=== PATIENT | female | born 1950 | race Caucasian/White ===

== ENCOUNTER → 2017-09-03 15:21 | Outpatient (CLI) | payer MEDICARE, OTHER, MEDICAID, SELFPAY | PROVIDERS: Family Provider Family Medicine; PCP Specialist; Visit Provider Internal Medicine | DX: K94.23 Gastrostomy malfunction (principal) | CPT/HCPCS: 99213 ==

== ENCOUNTER → 2017-09-22 14:41 | Outpatient (CLI) | payer MEDICARE, OTHER, MEDICAID, SELFPAY ==
--- NOTE | 2017-09-22 | DI.RAD.S_ITS ---
PROCEDURE: XR CHEST 2V INDICATIONS: CRACKLES LLL ON EXAM TECHNIQUE: 2 views of the chest were acquired. [facility]/2016, 12:19[facility]ST [facility], 06/20/2015, 12:59. FINDINGS: Surgical changes and devices: None. Lungs and pleura: No pleural effusions or pneumothorax. Lungs are clear. Mediastinum: Mediastinal contours are normal. Heart size is normal. Bones and chest wall: No suspicious bony abnormalities. Soft tissues appear unremarkable. IMPRESSION: Normal for age, source of current symptoms is not seen. Dictated by: Kaleb Gonzalez M.D. on 09/22/2017 at 15:15 Approved by: Kaleb Gonzalez M.D. on 09/22/2017 at 15:15
== END ==
PROVIDERS: Family Provider Family Medicine; PCP Specialist; Visit Provider Nurse Practitioner Family
DX: J06.9 Acute upper respiratory infection, unspecified (principal)
CPT/HCPCS: 71046

== ENCOUNTER 2017-10-25 08:47 | Emergency (ER) | payer MEDICARE, OTHER, MEDICAID, SELFPAY ==
[2017-10-25] VITALS (11 sets, daily range): BP systolic 100–156; BP diastolic 48–82; PULSE 75–98; RESP 18–30; TEMP 37.1; O2SAT 98–100
--- NOTE | 2017-10-25 09:03 | ED.ABDPAIN ---
HPI - Abdominal Pain General Chief Complaint: Abdominal Pain Stated Complaint: states need a tube change in stomach Time Seen by Provider: 10/25/17 08:56 Source: patient, family, RN notes reviewed and old records reviewed Mode of arrival: ambulatory Limitations: no limitations History of Present Illness HPI narrative: Patient is a 67-year-old female who presents with a G-tube malfunction. At this is 1 that comes out often needs replaced. They tried to deflate the balloon at home however they were not able to get very much of the water out. It is filled with sterile water. She generally does not have pain with feels that she is experiencing some discomfort as well. They have not given her any food or pills this morning. She is having some irritation around the site which she typically does not have says that started this morning. MD complaint: abdominal pain Onset (ago): hour(s) Related Data Home Medications Medication Instructions Recorded Confirmed methadone 5 mg PO SEE INSTRUCTIONS #0 ml 12/26/15 cyclobenzaprine PO TIDP PRN #0 03/13/17 imipramine HCl 50 mg PO QDAY #0 03/13/17 sennosides [senna] 8.6 mg PO #0 03/13/17 fluticasone [Flonase Allergy 2 spray INTRANASAL QDAY #0 03/16/17 Relief] methocarbamol 500 mg PO TID #0 03/16/17 Previous Rx's Medication Instructions Recorded clobetasol 0 TOPICAL BID #30 gm 12/26/15 Allergies Allergy/AdvReac Type Severity Reaction Status Date / Time amoxicillin [From Augmentin] Allergy Unknown Unverified 10/25/17 13:30 cat dander Allergy Unknown Verified 10/25/17 13:30 clavulanic acid Allergy Unknown Unverified 10/25/17 13:30 [From Augmentin] Review of Systems Review of Systems All systems reviewed & are unremarkable except as noted in HPI and below Constitutional Denies chills, Denies fever(s), Denies headache(s), Denies lethargy and Denies weakness ENT Ears, Nose, Mouth, and Throat: Denies headache(s) Cardiovascular Denies chest pain, Denies irregular heart rhythm, Denies lightheadedness, Denies palpitations and Denies orthopnea Respiratory Reports other (Trach) Gastrointestinal Gastrointestinal: Reports as per HPI Integumentary/Breasts Reports erythema (Around G2) Neurologic Denies headache(s) and Denies weakness Endocrine Denies palpitations PFSH Family History Father Cancer Diabetes mellitus Mother High cholesterol Sister Age: 71 High cholesterol Sister High cholesterol Mental health problem Social History Smoking Status: Never smoker Exam Initial Vital Signs Initial Vital Signs: Vital Signs Temperature 98.7 F 10/25/17 08:59 Pulse Rate 88 10/25/17 08:59 Respiratory Rate 18 10/25/17 08:59 Blood Pressure 146/59 H 10/25/17 08:59 Pulse Oximetry 100 10/25/17 08:59 Const General: cooperative and ill appearing (chronically ill) Nutritional Appearance: thin HENMT Head: normal to inspection and normocephalic Chest Chest: normal inspection of the chest Resp Effort & Inspection: normal respiratory effort Other: Trach in place Cardio Pulses: normal peripheral pulses GI Palpation: soft Auscultation: normal bowel sounds Other: G tube present, mild erythema around tube, no drainage Skin Rashes: rashes noted (see above around tube) Neuro General: alert, awake and oriented x3 Extrem General: normal to inspection Procedures Procedural Sedation Indication: other (G tube replacement) ASA Class: I (Trach present) Time of Last PO Intake: 20:15 Preparation: air sampling and monitoring applied, pulse oximeter, capnometry used and supplemental O2 applied IV Propofol dose (mg): 50 Time of Sedation (Min): 15 ED Sedation Level: Minimal Patient Tolerated Procedure: Well and No complications Complications: [place] [facility] [place] Name of Procedure: G-tube replacement Location: abdomen Time out performed: Yes Technique/Description of procedure performed: Attempt at replacing G2. His 20 mL of air and very little fluid were removed from the balloon. Unable to remove G-tube is still fell down Patient tolerated procedure: Well Course Additional Information: Unable to pulled G-tube out despite procedure sedation. at bedside. She is successful Orders Ordered: Discontinued Medications Hydromorphone HCl (Dilaudid) 0.5 mg IV NOW ONE Stop: 10/25/17 12:17 Last Admin: 10/25/17 12:45 Dose: 0.5 mg Hydromorphone HCl (Dilaudid) 1 mg IV NOW ONE Stop: 10/25/17 13:26 Last Admin: 10/25/17 13:31 Dose: 1 mg Morphine Sulfate (Morphine) 4 mg IM NOW ONE Stop: 10/25/17 09:14 Last Admin: 10/25/17 09:32 Dose: Morphine Sulfate (Morphine) 4 mg INJ NOW ONE Stop: 10/25/17 09:31 Last Admin: 10/25/17 09:15 Dose: 4 mg Propofol (Diprivan) 50 mg IV NOW ONE Stop: 10/25/17 10:14 Last Admin: 10/25/17 11:02 Dose: 50 mg Vital Signs - 8 hr 10/25/17 08:59 10/25/17 10:49 10/25/17 10:50 Temperature 98.7 F Pulse Rate 88 98 H Respiratory Rate 18 20 26 H Blood Pressure 146/59 H Blood Pressure [Right Arm] 156/69 H Pulse Oximetry 100 98 100 10/25/17 11:00 10/25/17 11:05 10/25/17 11:15 Temperature Pulse Rate 80 76 76 Respiratory Rate 26 H 28 H 25 H Blood Pressure Blood Pressure [Right Arm] 122/61 H 140/60 H 129/51 H Pulse Oximetry 100 98 100 10/25/17 11:20 10/25/17 11:28 10/25/17 11:33 Temperature Pulse Rate 78 79 83 Respiratory Rate 27 H 25 H 22 Blood Pressure Blood Pressure [Right Arm] 100/82 H 141/56 H 142/54 H Pulse Oximetry 100 100 100 10/25/17 11:50 10/25/17 14:07 Temperature Pulse Rate 80 80 Respiratory Rate 25 H 22 Blood Pressure Blood Pressure [Right Arm] 135/65 H 140/56 H Pulse Oximetry 99 100 MDM - Abdominal Pain Lab Data Point of care testing: Point of Care Testing Test Results Negative MDM Narrative Medical decision making narrative: Patient tolerated procedure well. Apparently the could not pull the tube out so he kept putting more fluid and more air in he tried to take it out but would only get a couple cc of fluid out so he continue to put more in. The balloon was intact, Dr. Felix did the procedure at bedside. I discussed all findings with the patient and the spouse, Education has been performed regarding treatment plan, diagnosis, warning signs and symptoms and all concerns have been addressed. Verbally agree with and understood all of the above. Discharge Plan Departure Patient Disposition: Home, Self-Care Clinical Impression: Problem with gastrostomy tube Discharge Date/Time: 10/25/17 14:20 Interventions: ED Discharge Assessment Last Done: 10/25/17 14:40 Instructions: DI for Feeding Tube Exchange Activity Restrictions/Additional Instructions: *You have been diagnosed with Gtube problem *What to do: Do not put any more then 10 mL in the balloon. *Continue to take medications as directed *Follow up with your primary care provider in 2-3 days *Return to ER if you should have any new, worsening or concerning symptoms Prescriptions: No Action clobetasol 0.05 % ointment Topical BID Qty: 30 RF: 2 methadone 5 MG/5 ML solution 5 mg PO SEE INSTRUCTIONS Qty: 0 RF: 0 imipramine HCl 50 MG tablet 50 mg PO QDAY Qty: 0 RF: 0 cyclobenzaprine 10 mg Tablet PO TIDP PRNQty: 0 RF: 0 sennosides [senna] 8.6 MG tablet 8.6 mg PO Qty: 0 RF: 0 fluticasone [Flonase Allergy Relief] 9.9 ML spray,suspension 2 spray Intranasal QDAY Qty: 0 RF: 0 methocarbamol 500 MG tablet 500 mg PO TID Qty: 0 RF: 0 Referrals: Imelda Ruiz MD [Primary Care Provider] -
[2017-10-25] MEDS: MORPHINE 4 MG/ML INJ INJ (09:15)
[2017-10-25] MEDS: PROPOFOL 200 MG/20 ML VIAL 50 MG IV (11:02)
--- NOTE | 2017-10-25 12:04 | RT ---
Called to the ER for a Conscious Sedation for a pt with a Trach for an issue with her Feeding Tube. Pt was suctioned before the procedure.
[2017-10-25] MEDS: HYDROMORPHONE 0.5 MG INJ IV (12:45)
[2017-10-25] MEDS: HYDROMORPHONE 0.5 MG INJ 1 MG IV (13:31)
--- NOTE | 2017-10-25 14:27 | PM.CN ---
History of Present Illness Date Patient Seen: 10/25/17 Time Patient Seen: 13:04 Chief complaint: states need a tube change in stomach Reason for consult: Malfunctioning gastrostomy tube Requesting provider: Camilla Ulloa Narrative: Aimee is an unfortunate 67-year-old lady who has a permanent gastrostomy tube. She and her are able to change the tube at home usually. Unfortunately, this time when they tried to change the tube they were not able to deflate the balloon. She presented to the emergency room because she was in significant discomfort after the attempt. Multiple attempts have been made to remove the tube but none have been successful. Multiple attempts of also been made to deflate the balloon but none of those have been successful. [facility] Family History Father Cancer Diabetes mellitus Mother High cholesterol Sister Age: 71 High cholesterol Sister High cholesterol Mental health problem Social History Smoking Status: Never smoker Meds Home Medications Medication Instructions Recorded Confirmed Type clobetasol 0 TOPICAL BID #30 gm 12/26/15 Rx methadone 5 mg PO SEE INSTRUCTIONS #0 ml 12/26/15 History cyclobenzaprine PO TIDP PRN #0 03/13/17 History imipramine HCl 50 mg PO QDAY #0 03/13/17 History sennosides [senna] 8.6 mg PO #0 03/13/17 History fluticasone [Flonase Allergy 2 spray INTRANASAL QDAY #0 03/16/17 History Relief] methocarbamol 500 mg PO TID #0 03/16/17 History Allergies Allergy/AdvReac Type Severity Reaction Status Date / Time amoxicillin [From Augmentin] Allergy Unknown Unverified 10/25/17 13:30 cat dander Allergy Unknown Verified 10/25/17 13:30 clavulanic acid Allergy Unknown Unverified 10/25/17 13:30 [From Augmentin] Review of Systems Review of Systems Denies any significant issues other than the 1 described above Exam Vital Signs (past 8 hours): - 10/25/17 08:59 10/25/17 10:49 10/25/17 10:50 Temperature 98.7 F Pulse Rate 88 98 H Respiratory Rate 18 20 26 H Blood Pressure 146/59 H Blood Pressure [Right Arm] 156/69 H Pulse Oximetry 100 98 100 10/25/17 11:00 10/25/17 11:05 10/25/17 11:15 Temperature Pulse Rate 80 76 76 Respiratory Rate 26 H 28 H 25 H Blood Pressure Blood Pressure [Right Arm] 122/61 H 140/60 H 129/51 H Pulse Oximetry 100 98 100 10/25/17 11:20 10/25/17 11:28 10/25/17 11:33 Temperature Pulse Rate 78 79 83 Respiratory Rate 27 H 25 H 22 Blood Pressure Blood Pressure [Right Arm] 100/82 H 141/56 H 142/54 H Pulse Oximetry 100 100 100 10/25/17 11:50 10/25/17 14:07 Temperature Pulse Rate 80 80 Respiratory Rate 25 H 22 Blood Pressure Blood Pressure [Right Arm] 135/65 H 140/56 H Pulse Oximetry 99 100 Oxygen Delivery Method Room Air Narrative Exam Narrative: Very thin but pleasant lady. She is obviously physically uncomfortable. She is also in some emotional distress. My examination is limited to the abdominal wall. There is a gastrostomy to with the marker approximately 1-1/2 cm at the skin surface. There is a palpable lump just underneath the skin consistent with the balloon. Very tender to palpation and generally uncomfortable. Using a syringe, I was able to aspirate 22 mL of pinkish brown fluid from the balloon port of the gastrostomy tube. Once the balloon was deflated, her pain seemed to improve significantly. I was able to remove the tube and replace it with a 20 [place] replacement G-tube without difficulty. The balloon was inflated with 10 mL of sterile water without difficulty. Patient reports her pain has resolved but she is just generally sore at this point. Assessment & Plan Plan: Assessment/Plan Narrative: Malfunctioning PEG tube. The tube has been removed and replaced and seems to be working well. She has received pain medicine here in the emergency room so will ask her not to take her scheduled methadone for at least 1 hr. She will follow up with her usual care providers.
== END 2017-10-25 14:20 | disposition home or self-care (01) ==
PROVIDERS: Emergency Provider Emergency Medicine; Family Provider Family Medicine; PCP Specialist
DX: K94.23 Gastrostomy malfunction (principal)
CPT/HCPCS: 43760; 96374; 96375; 96376; 99152; 99284; 99285; 99291; J1170; J2270; J2704

== ENCOUNTER → 2018-01-08 12:08 | Outpatient (CLI) | payer MEDICARE, OTHER, MEDICAID, SELFPAY ==
--- NOTE | 2018-01-08 | DI.RAD.S_ITS ---
PROCEDURE: XR HAND RT MIN 3V INDICATIONS: RIGHT HAND PAIN TECHNIQUE: Right views of the hand(s) acquired. COMPARISON: None. FINDINGS: Bones: No fractures or dislocations. Carpal bones are normally aligned. No suspicious bony lesions. Scattered mild interphalangeal, first CMC and triscaphe spurring. No definite joint space narrowing. Soft tissues: No suspicious soft tissue calcifications. Numerous surgical clips project in the distal forearm IMPRESSION: Diffuse mild degenerative spurring as above Dictated by: Nick Gupta M.D. on 01/08/2018 at 14:30 Approved by: Nick Gupta M.D. on 01/08/2018 at 14:31
== END ==
PROVIDERS: Family Provider Family Medicine; PCP Family Medicine; Visit Provider Family Medicine
DX: M79.641 Pain in right hand (principal); M77.9 Enthesopathy, unspecified
CPT/HCPCS: 73130

== ENCOUNTER → 2018-09-23 16:02 | Outpatient (CLI) | payer MEDICARE, OTHER, MEDICAID, SELFPAY ==
--- NOTE | 2018-09-23 16:57 | DI.RAD.S_ITS ---
PROCEDURE: XR CHEST 2V INDICATIONS: BRONCHITIS TECHNIQUE: 2 views of the chest were acquired. COMPARISON: [facility], CR, XR CHEST 2V, 09/22/2017, 14:29. FINDINGS: Surgical changes and devices: None. Lungs and pleura: Lungs are clear, aside from bibasilar airspace opacities. No pleural effusions or pneumothorax. Mediastinum: Mediastinal contours are normal. Heart size is normal. Bones and chest wall: No suspicious bony abnormalities. Soft tissues appear unremarkable. IMPRESSION: Bibasilar atelectasis versus aspiration or pneumonia. Correlate clinically. Dictated by: Donnie Hu [facility] Interpreted: Rosanna Fountain MD on 09/23/2018 at 17:13 Approved by: Rosanna Fountain M.D. on 09/23/2018 at 17:23
== END ==
PROVIDERS: Family Provider Family Medicine; PCP Family Medicine; Visit Provider Family Medicine
DX: J42 Unspecified chronic bronchitis (principal); Z87.01 Personal history of pneumonia (recurrent)
CPT/HCPCS: 71046

== ENCOUNTER → 2018-10-01 08:53 | Outpatient (CLI) | payer MEDICARE, OTHER, MEDICAID, SELFPAY ==
--- NOTE | 2018-10-01 | DI.RAD.S_ITS ---
PROCEDURE: FL GUIDED PICC PLACEMENT INDICATIONS: Pneumonia, unspecified organism COMPARISON: None. FINDINGS: PICC was placed by the intravenous therapy team from the right side. Fluoroscopic spot film demonstrates tip of PICC in the distal SVC below the axial level of the azygos arch.. IMPRESSION: Tip of PICC lies within the distal SVC a right-sided approach. Dictated by: Kaleb Gonzalez M.D. on 10/01/2018 at 10:12 Approved by: Kaleb Gonzalez M.D. on 10/01/2018 at 10:13
[2018-10-01 10:26] LABS: Add Manual Diff / Slide Review NO; Basophils Absolute Auto 0 /uL (0-100); Basophils Percent Auto 0.6 % (0-2); Eosinophils Absolute Auto 100 /uL (0-450); Eosinophils Percent Auto 0.8 % (2-4); Hematocrit 33.9 % (36-46); Hemoglobin 11.4 g/dL (12.0-16.0); Lymphocytes Absolute Auto 500 /uL (1100-4500); Lymphocytes Percent Auto 6.8 % (25-40); Mean Corpuscular HGB Conc 33.6 % (30-36); Mean Corpuscular Hemoglobin 30.5 PG (26-34); Mean Corpuscular Volume 90.9 fL (80-100); Monocytes Absolute Auto 500 /uL (0-900); Monocytes Percent Auto 6.7 % (3-14); Neutrophils Absolute Auto 5700 /uL (1500-7000); Neutrophils Percent Auto 85.1 % (50-75); Platelet Count 379 X10^3/uL (150-400); Red Blood Cell Count 3.73 X10^6/uL (4.0-5.2); Red Cell Distribution Width 12.4 % (11.6-14.8); White Blood Cell Count 6.7 X10^3/uL (4.5-11.0)
[2018-10-01 11:01] LABS: Alanine Aminotransferase 12 IU/L (9-52); Albumin 3.7 g/dL (3.5-5.0); Albumin Globulin Ratio 1.1 (1.0-2.8); Alkaline Phosphatase 74 U/L (38-126); Aspartate Aminotransferase 16 IU/L (14-36); BUN Creatinine Ratio 42.5 (6-22); Bilirubin Total 0.4 mg/dL (0.2-1.3); Blood Urea Nitrogen 34 mg/dL (7-17); Carbon Dioxide 30 mmol/L (22-32); Chloride 99 mmol/L (98-107); Estimated Glomerular Filt Rate > 60.0 mL/min (>60); Globulin 3.5 g/dL (1.7-4.1); Glucose 74 mg/dL (80-110); HEMOLYSIS < 15 (0-50); Potassium 4.8 mmol/L (3.4-5.1); Sodium 138 mmol/L (137-145); Total Protein 7.2 g/dL (6.3-8.2)
== END ==
PROVIDERS: Family Provider Family Medicine; PCP Family Medicine; Visit Provider Family Medicine
DX: J18.9 Pneumonia, unspecified organism (principal)
CPT/HCPCS: 36415; 36573; 80053; 85025

== ENCOUNTER → 2018-10-12 10:36 | Outpatient (ROUT) | payer MEDICARE, OTHER, MEDICAID, SELFPAY ==
[2018-10-12 10:51] LABS: Add Manual Diff / Slide Review NO; Basophils Absolute Auto 0 /uL (0-100); Basophils Percent Auto 0.9 % (0-2); Eosinophils Absolute Auto 100 /uL (0-450); Hematocrit 34.8 % (36-46); Hemoglobin 11.7 g/dL (12.0-16.0); Lymphocytes Absolute Auto 600 /uL (1100-4500); Lymphocytes Percent Auto 14.1 % (25-40); Mean Corpuscular HGB Conc 33.5 % (30-36); Mean Corpuscular Hemoglobin 30.6 PG (26-34); Mean Corpuscular Volume 91.3 fL (80-100); Monocytes Absolute Auto 400 /uL (0-900); Monocytes Percent Auto 9.3 % (3-14); Neutrophils Absolute Auto 3200 /uL (1500-7000); Neutrophils Percent Auto 72.7 % (50-75); Platelet Count 315 X10^3/uL (150-400); Red Blood Cell Count 3.82 X10^6/uL (4.0-5.2); Red Cell Distribution Width 12.7 % (11.6-14.8); White Blood Cell Count 4.4 X10^3/uL (4.5-11.0)
[2018-10-12 10:56] LABS: Alanine Aminotransferase 12 IU/L (9-52); Albumin 4.2 g/dL (3.5-5.0); Albumin Globulin Ratio 1.2 (1.0-2.8); Alkaline Phosphatase 79 U/L (38-126); Aspartate Aminotransferase 18 IU/L (14-36); BUN Creatinine Ratio 47.1 (6-22); Bilirubin Total 0.4 mg/dL (0.2-1.3); Blood Urea Nitrogen 33 mg/dL (7-17); Carbon Dioxide 31 mmol/L (22-32); Chloride 103 mmol/L (98-107); Estimated Glomerular Filt Rate > 60.0 mL/min (>60); Globulin 3.5 g/dL (1.7-4.1); Glucose 79 mg/dL (80-110); HEMOLYSIS < 15 (0-50); Potassium 4.5 mmol/L (3.4-5.1); Sodium 142 mmol/L (137-145); Total Protein 7.7 g/dL (6.3-8.2)
[2018-10-12 11:02] LABS: Vancomycin Trough 16.1 ug/mL (10-20)
== END ==
PROVIDERS: Family Provider Family Medicine; PCP Family Medicine; Visit Provider Family Medicine
DX: J18.9 Pneumonia, unspecified organism (principal)
CPT/HCPCS: 80053; 80202; 85025

== ENCOUNTER 2019-01-05 00:28 | Observation (INO) | payer MEDICARE, OTHER, MEDICAID, SELFPAY ==
[2019-01-05] VITALS (10 sets, daily range): BP systolic 120–150; BP diastolic 65–79; PULSE 66–81; RESP 16–18; TEMP 36–37.3; O2SAT 96–100; BMI 20.7
--- NOTE | 2019-01-05 00:38 | DI.RAD.S_ITS ---
PROCEDURE: XR ABDOMEN 1V INDICATIONS: G tube placement TECHNIQUE: 3 views of the abdomen acquired before and after the administration of contrast through patient's percutaneous feeding tube. COMPARISON: [facility], CT, CHEST/ABDOMEN WITH CONTRAST, 12/21/2015, 10:56. [facility], CR, ABDOMEN 2 VIEW, 05/08/2015, 12:40. FINDINGS: Surgical changes and devices: A percutaneous feeding tube is demonstrated in the left upper quadrant. Bowel: Injected contrast opacifies multiple loops of small bowel in the left upper quadrant. No evidence of extraluminal contrast extravasation. There is gas and stool distention of the colon including the descending colon with multiple air-fluid levels. Soft tissues: No suspicious abdominal calcifications. Bones: No suspicious bony lesions. IMPRESSION: 1. No evidence of extraluminal contrast extravasation following injection through patient's percutaneous feeding tube. 2. Distention of the colon with multiple air-fluid levels. Findings may represent a distal colonic obstruction or an ileus. Recommend correlation clinically and further evaluation with CT if indicated. Dictated by: Hayden Lopez M.D. on 01/05/2019 at 8:00 Approved by: Hayden Lopez M.D. on 01/05/2019 at 8:07
--- NOTE | 2019-01-05 00:42 | ED.ABDPAIN ---
HPI - Abdominal Pain General Chief Complaint: Abdominal Pain Stated Complaint: NEEDS GTUBE REPLACED Time Seen by Provider: 01/05/19 00:34 Source: patient, family and old records reviewed Mode of arrival: ambulatory Limitations: no limitations History of Present Illness HPI narrative: Patient is a 68-year-old female who presents with abdominal pain. She had a G-tube replaced today. She has had 1 for many years. is quite familiar with it. thinks it might be in the wrong spot he has put out over a L in in you can actually see swelling in her abdomen. She is in severe pain unable to draw back the G-tube. MD complaint: abdominal pain Related Data Home Medications Medication Instructions Recorded Confirmed methadone 5 mg PO SEE INSTRUCTIONS #0 ml 12/26/15 01/04/19 cyclobenzaprine PO TIDP PRN #0 03/13/17 01/04/19 imipramine HCl 50 mg PO QDAY #0 03/13/17 01/04/19 sennosides [senna] 8.6 mg PO #0 03/13/17 01/04/19 fluticasone propionate [Flonase 2 spray INTRANASAL QDAY #0 03/16/17 01/04/19 Allergy Relief] methocarbamol 500 mg PO TID #0 03/16/17 01/04/19 albuterol sulfate 2.5 mg/3 mL 2.5 mg INHALATION Q4-6H PRN 01/06/18 01/04/19 (0.083 %) solution for nebulization ascorbic acid (vitamin C) 1,000 mg 1 gram FEEDING TUBE DAILY tab 01/06/18 01/04/19 tablet clonazepam 0.5 mg disintegrating 0.5 mg FEEDING TUBE TID 01/06/18 01/04/19 tablet cyclobenzaprine 5 mg tablet 5 mg FEEDING TUBE TID PRN 01/06/18 01/04/19 dextromethorphan-guaifenesin 10 30 ml PO ml 01/06/18 01/04/19 mg-200 mg/15 mL oral liquid gabapentin 250 mg/5 mL oral 1,500 mg FEEDING TUBE BID ml 01/06/18 01/04/19 solution ibuprofen 100 mg/5 mL oral 400 mg FEEDING TUBE Q6-8H PRN ml 01/06/18 01/04/19 suspension levothyroxine 200 mcg tablet 225 mcg FEEDING TUBE DAILY tab 01/06/18 01/04/19 meclizine 25 mg tablet 25 mg FEEDING TUBE Q6H PRN tab 01/06/18 01/04/19 methadone 10 mg/mL oral concentrate 6 mg FEEDING TUBE Q12H ml 01/06/18 01/04/19 ondansetron 4 mg disintegrating 4 mg FEEDING TUBE Q6H PRN tab 01/06/18 01/04/19 tablet ranitidine HCl 15 mg/mL oral syrup 150 mg FEEDING TUBE DAILY 01/06/18 01/04/19 Previous Rx's Medication Instructions Recorded clobetasol 0 TOPICAL BID #30 gm 12/26/15 Allergies Allergy/AdvReac Type Severity Reaction Status Date / Time amoxicillin [From Augmentin] Allergy Unknown Unverified 01/04/19 16:25 cat dander Allergy Unknown Verified 01/04/19 16:25 clavulanic acid Allergy Unknown Unverified 01/04/19 16:25 [From Augmentin] Review of Systems Review of Systems Narrative: GENERAL: Denies chills, fatigue, malaise, fever, sweats, travel HEENT: Denies sinus pain, ear pain, sore throat, difficulty swallowing, neck pain RESPIRATORY: Denies dyspnea, cough, wheezing, hemoptysis, sputum. CARDIOVASCULAR: Denies chest pain, palpitations, orthopnea, edema GASTROINTESTINAL: Denies nausea, vomiting, abdominal pain, diarrhea, constipation, melena. : Denies dysuria, frequency, incontinence, hematuria, urinary retention, flank pain. MUSCULOSKELETAL: Denies weakness, joint pain, or bony pain SKIN: No rash, no erythema, no pruritus NEUROLOGIC: Denies weakness, dizziness, headache, numbness, change in speech, confusion PSYCHIATRIC: No concerning psychosocial issues. 12 point review of systems is negative except for those stated above and HPI [facility] Medical History (Updated 01/05/19 @ 02:30 by Camilla Ulloa DO) Hypothyroid (Acute) Family History Father Cancer Diabetes mellitus Mother High cholesterol Sister Age: 73 High cholesterol Sister High cholesterol Mental health problem Social History household members: spouse Smoking Status: Never smoker Family History Father Cancer Diabetes mellitus Mother High cholesterol Sister Age: 73 High cholesterol Sister High cholesterol Mental health problem Social History household members: spouse Smoking Status: Never smoker Exam Initial Vital Signs Initial Vital Signs: Vital Signs Temperature 97.6 F 01/05/19 00:37 Pulse Rate 72 01/05/19 00:37 Respiratory Rate 18 01/05/19 00:37 Blood Pressure 150/71 H 01/05/19 00:37 Pulse Oximetry 100 01/05/19 00:37 GENERAL: Elderly female appears in discomfort HEENT: Head atraumatic,EOMI, pupils reactive, face symmetric, trach noted CARDIOVASCULAR: Regular rate and rhythm without murmurs, rubs or gallops. RESPIRATORY: Breath sounds equal bilaterally, no wheezes rales or rhonchi. ABDOMEN: Soft, G-tube noted swelling noted subcutaneously tender in the area no surrounding erythema EXTREMITIES: Normal range of motion, no clubbing or edema. Neurovascularly intact NEUROLOGICAL: Alert and oriented x4.Normal gait and speech. Cranial nerves II through XII grossly intact. SKIN: Warm, dry, no laceration, no petechiae, no rashes or lesions. Course Orders Ordered: ED Orders 01/05/19 00:38 XR abdomen 1V Stat 01/05/19 00:40 Basic Metabolic Panel Stat Complete Blood Count AUTO DIFF Stat Sodium Chloride (Normal Saline 0.9%) 1,000 mls @ 125 mls/hr IV CONT CELY Morphine Sulfate (Morphine) 2 mg IV Q4HR PRN PRN Reason: Pain, Moderate (4-6) Ondansetron HCl (Zofran) 4 mg IV Q4HR PRN PRN Reason: Nausea And Vomiting Discontinued Medications Morphine Sulfate (Morphine) 2 mg IV NOW ONE Stop: 01/05/19 00:39 Last Admin: 01/05/19 00:45 Dose: 2 mg Documented by: SHADIA Vital Signs Vital signs: Vital Signs - 8 hr 01/05/19 00:37 01/05/19 01:15 01/05/19 01:30 Temperature 97.6 F Pulse Rate 72 66 67 Respiratory Rate 18 Blood Pressure 150/71 H Blood Pressure [Right Arm] 143/73 H 120/65 Pulse Oximetry 100 99 99 MDM - Abdominal Pain Lab Data Attestation: I reviewed the patient's lab results. Result diagrams: 01/05/19 00:40 01/05/19 00:40 Labs: Lab Results 01/05/19 01/05/19 Range/Units 00:40 00:40 WBC 7.8 (4.5-11.0) X10^3/uL RBC 4.30 (4.0-5.2) X10^6/uL Hgb 13.4 (12.0-16.0) g/dL Hct 40.1 (36-46) % MCV 93.1 (80-100) fL MCH 31.1 (26-34) PG MCHC 33.5 (30-36) % RDW 14.2 (11.6-14.8) % Plt Count 219 (150-400) X10^3/uL Neut % (Auto) 79.7 H (50-75) % Lymph % (Auto) 9.5 L (25-40) % [place] % (Auto) 4.7 (3-14) % Eos % (Auto) 5.0 H (2-4) % Baso % (Auto) 1.1 (0-2) % Neut # (Auto) 6200 (8635-7929) /uL Lymph # (Auto) 700 L (6904-6065) /uL [place] # (Auto) 400 (0-900) /uL Eos # (Auto) 400 (0-450) /uL Baso # (Auto) 100 (0-100) /uL Sodium 137 (137-145) mmol/L Potassium 4.1 (3.4-5.1) mmol/L Chloride 95 L (98-107) mmol/L Carbon Dioxide 33 H (22-32) mmol/L BUN 37 H (7-17) mg/dL Creatinine 0.80 (0.52-1.04) mg/dL Estimated GFR > 60.0 (>60) mL/min BUN/Creatinine Ratio 46.3 H (6-22) Glucose 88 (80-110) mg/dL Calcium 8.1 L (8.4-10.2) mg/dL Imaging Data Abdominal x-ray: Attestation: I personally reviewed and interpreted this imaging study as follows: My impression: gastrograffin is noted in the intestine although ? 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 MDM Narrative Medical decision making narrative: I have discussed case with Dr. Camacho, on-call surgeon, at this time recommends placing an observation will evaluate in a few hours. Recommend keeping NPO. Based patient's symptoms something does appear to be wrong with the G-tube. Surgery aware and will evaluate in a few hours. Patient is much more comfortable after morphine. Discharge Plan Departure Patient Disposition: Admitted as Observation Clinical Impression: PEG tube malfunction Discharge Date/Time: 01/05/19 01:50 Admit Date/Time: 01/05/19 01:30 Admit Provider: Prosper Camacho
[2019-01-05] MEDS: MORPHINE 2 MG/ML INJ IV ×3 (00:45→14:25)
[2019-01-05 01:00] LABS: Add Manual Diff / Slide Review NO; Basophils Absolute Auto 100 /uL (0-100); Basophils Percent Auto 1.1 % (0-2); Eosinophils Absolute Auto 400 /uL (0-450); Hematocrit 40.1 % (36-46); Hemoglobin 13.4 g/dL (12.0-16.0); Lymphocytes Absolute Auto 700 /uL (1100-4500); Lymphocytes Percent Auto 9.5 % (25-40); Mean Corpuscular HGB Conc 33.5 % (30-36); Mean Corpuscular Hemoglobin 31.1 PG (26-34); Mean Corpuscular Volume 93.1 fL (80-100); Monocytes Absolute Auto 400 /uL (0-900); Monocytes Percent Auto 4.7 % (3-14); Neutrophils Absolute Auto 6200 /uL (1500-7000); Neutrophils Percent Auto 79.7 % (50-75); Platelet Count 219 X10^3/uL (150-400); Red Cell Distribution Width 14.2 % (11.6-14.8); White Blood Cell Count 7.8 X10^3/uL (4.5-11.0)
[2019-01-05 01:11] LABS: BUN Creatinine Ratio 46.3 (6-22); Blood Urea Nitrogen 37 mg/dL (7-17); Calcium 8.1 mg/dL (8.4-10.2); Carbon Dioxide 33 mmol/L (22-32); Chloride 95 mmol/L (98-107); Estimated Glomerular Filt Rate > 60.0 mL/min (>60); Glucose 88 mg/dL (80-110); HEMOLYSIS < 15 (0-50); Potassium 4.1 mmol/L (3.4-5.1); Sodium 137 mmol/L (137-145)
[2019-01-05] MEDS: SODIUM CHLORIDE 0.9% 1,000 ML 125 ML IV ×3 (02:57→20:42)
--- NOTE | 2019-01-05 09:28 | DI.CT.S_ITS ---
PROCEDURE: CT ABDOMEN PELVIS W CON INDICATIONS: peg tube wont flus TECHNIQUE: After the administration of oral and intravenous contrast, 5 mm thick sections acquired from the diaphragms to the symphysis. 5 mm thick coronal and sagittal reformats were performed. For radiation dose reduction, the following was used: automated exposure control, adjustment of mA and/or kV according to patient size. COMPARISON: [facility], CT, CT CHEST WITH CONTRAST, 11/13/2018, 15:17. [facility], CT, CHEST/ABDOMEN WITH CONTRAST, 12/21/2015, 10:56. FINDINGS: Image quality: Excellent. ABDOMEN: Lung bases: Lung bases are clear. Stable 1 cm maximum diameter left lower lobe pulmonary nodule, likely a hamartoma. Heart size is normal. Solid organs: Liver is normal in size and enhancement. Multiple tiny low-density lesions in the liver are consistent with cysts versus hemangiomata. Gallbladder is distended with minimal wall thickening.. Mild central intrahepatic biliary ductal dilatation, as before. Unchanged. No distal obstructing mass. Pancreas enhances normally. Mild prominence of pancreatic duct. Spleen is normal in size and enhancement. No adrenal nodules. Kidneys are normal in size and enhancement, without hydronephrosis. Peritoneum and bowel: Peg tube in place. A The colon is redundant and distended and filled with large amount of fecal debris. No free air or free fluid or abscess cavity. Nodes and vessels: No retroperitoneal or mesenteric adenopathy. Aorta and inferior vena cava are normal in caliber. Miscellaneous: No ventral hernias. PELVIS: Genitourinary: Markedly distended bladder, of normal wall thickness. Miscellaneous: No inguinal hernias or adenopathy. Uterus is surgically absent Bones: No suspicious bony lesions. No vertebral body compression fractures. IMPRESSION: 1. Marked distention of the bladder. 2. Diffusely dilated colon filled with a large amount of fecal debris. 3. Remote hysterectomy. 4. Distended gallbladder. 5. Mild chronic central intrahepatic biliary ductal dilatation. Dictated by: Raymundo Schwab M.D. on 01/05/2019 at 9:39 Approved by: Raymundo Schwab M.D. on 01/05/2019 at 9:54
[2019-01-05 10:57] LABS: Appearance Urine UA CLEAR; Bilirubin Urine UA NEGATIVE (NEGATIVE); Color Urine UA YELLOW; Glucose Urine UA NEGATIVE (Negative); Ketones Urine UA NEGATIVE (NEGATIVE); Leukocyte Esterase Urine UA NEGATIVE (NEGATIVE); Nitrite Urine UA NEGATIVE (Negative); Occult Blood Urine UA 1+ (Negative); Protein Urine UA NEGATIVE (Negative); Urobilinogen Urine UA 0.2 E.U./dL (0.2)
--- NOTE | 2019-01-05 10:59 | PC.NURSE ---
AM NOTE - pt is alert, spouse at bedside, voice is a whisper due to trach, site is clean w/o redness, capped, has peg tube clamped, bt are present, abd is tight below umbilicus and softer around umbilicus, feels bloated per pt, Dr> Janice in and flushed peg with water, some discomfort when abd area palpated and during flushing, ct ordered and pt taken via stretcher, rec'd call from Dr. Farmer to place hoff and pt bladder was very distended and do ua, on return from CT scan, pt actually voided 1000ml, did a pvr bladder scan and bladder shows 381 ml remaining, hoff cath placed w/clear urine, ua sent.
[2019-01-05 11:24] LABS: Bacteria Urine Occasional (0-1); Culture Indicated Urine Cult Not Indicated; RBC Urine 1-5/HPF (0-5/HPF); Squamous Epithelial Cell Urine 0-1 /HPF (0-5/HPF); WBC Urine 1-5/HPF (0-5/HPF); pH Urine UA 7.5 (4.5-8.0)
--- NOTE | 2019-01-05 12:07 | P.HP_ITS ---
History of Present Illness History of Present Illness Date Patient Seen: 01/05/19 Time Patient Seen: 13:07 Chief complaint: NEEDS GTUBE REPLACED Narrative: 68-year-old female with a permanent gastrostomy tube since 2010 underwent an in office tube exchange yesterday. Later in the day the patient devloped abdominal pain and fullness with administration of her normal tube feed. observed that the material flushed easily but had no residual. Concerned, he brought his to the emergency room for evaluation. A tube study demonstrated no leak. She continued to have significant pain was therefore admitted for observation. She had no fever leukocytosis or peritonitis on admission. Her medical history is complex, she underwent a partial laryngectomy and esophagectomy, open gastrostomy tube placement and multiple issues with the tube since requiring interventional radiology at . Patient History Medical History Hypothyroid (Acute) Family History Father Cancer Diabetes mellitus Mother High cholesterol Sister Age: 73 High cholesterol Sister High cholesterol Mental health problem Social History household members: spouse Smoking Status: Never smoker Family & Social History Family History Father Cancer Diabetes mellitus Mother High cholesterol Sister Age: 73 High cholesterol Sister High cholesterol Mental health problem Social History: household members spouse Prior Living Arrangements House Safety & Behavioral: Feels Safe in Current Yes Environment Tobacco & Substance use: Smoking Status Never smoker Substance Use Type does not use Meds Home Medications and Allergies Home Medications Medication Instructions Recorded Confirmed Type clobetasol 0 TOPICAL BID #30 gm 12/26/15 01/04/19 Rx methadone 5 mg PO SEE INSTRUCTIONS #0 ml 12/26/15 01/04/19 History cyclobenzaprine PO TIDP PRN #0 03/13/17 01/04/19 History imipramine HCl 50 mg PO QDAY #0 03/13/17 01/04/19 History sennosides [senna] 8.6 mg PO #0 03/13/17 01/04/19 History fluticasone propionate [Flonase 2 spray INTRANASAL QDAY #0 03/16/17 01/04/19 History Allergy Relief] methocarbamol 500 mg PO TID #0 03/16/17 01/04/19 History albuterol sulfate 2.5 mg/3 mL 2.5 mg INHALATION Q4-6H PRN 01/06/18 01/04/19 History (0.083 %) solution for nebulization ascorbic acid (vitamin C) 1,000 mg 1 gram FEEDING TUBE DAILY tab 01/06/18 0 01/04/19 History tablet clonazepam 0.5 mg disintegrating 0.5 mg FEEDING TUBE TID 01/06/18 01/04/19 History tablet cyclobenzaprine 5 mg tablet 5 mg FEEDING TUBE TID PRN 01/06/18 01/04/19 History dextromethorphan-guaifenesin 10 30 ml PO ml 01/06/18 01/04/19 History mg-200 mg/15 mL oral liquid gabapentin 250 mg/5 mL oral 1,500 mg FEEDING TUBE BID ml 01/06/18 01/04/19 History solution ibuprofen 100 mg/5 mL oral 400 mg FEEDING TUBE Q6-8H PRN ml 01/06/18 01/04/19 History suspension levothyroxine 200 mcg tablet 225 mcg FEEDING TUBE DAILY tab 01/06/18 01/04/19 H istory meclizine 25 mg tablet 25 mg FEEDING TUBE Q6H PRN tab 01/06/18 01/04/19 History methadone 10 mg/mL oral concentrate 6 mg FEEDING TUBE Q12H ml 01/06/18 01/04/19 History ondansetron 4 mg disintegrating 4 mg FEEDING TUBE Q6H PRN tab 01/06/18 01/04/19 History tablet ranitidine HCl 15 mg/mL oral syrup 150 mg FEEDING TUBE DAILY 01/06/18 01/04/19 History Allergies Allergy/AdvReac Type Severity Reaction Status Date / Time amoxicillin [From Augmentin] Allergy Unknown Unverified 01/04/19 16:25 cat dander Allergy Unknown Verified 01/04/19 16:25 clavulanic acid Allergy Unknown Unverified 01/04/19 16:25 [From Augmentin] Review of Systems Review of Systems ROS Unobtainable: other (unobtainable due to speech) Exam Vital Signs (past 8 hours): - 01/05/19 06:05 01/05/19 08:00 Temperature 96.8 F L 98.3 F Pulse Rate 71 77 Respiratory Rate 16 16 Blood Pressure 136/71 135/69 Pulse Oximetry 100 100 Oxygen Delivery Method Room Air Oxygen Flow Rate 0 Narrative Exam Narrative: General-adult female no acute distress, thin, HEENT no scleral icterus, tracheostomy Neck-supple no lymphadenopathy Chest- no labored respirations, clear to auscultation bilaterally Cardiac-regular rate and rhythm Abdomen-soft, gastrostomy tube at 3 cm to skin no abscess or drainage. 10 ml of saline within the balloon, which I drained and refilled with 5 ml.Tube flushes easily but no residual. Patient reports abdominal discomfort with flush Extremities-no edema, warm well perfused Neurological-alert and oriented x 3. No focal deficits Skin-normal temperature and turgor, no rashes or ulcers Objective Labs Result Diagrams: 01/05/19 00:40 01/05/19 00:40 Labs: Laboratory Results - last 24 hr 01/05/19 01/05/19 01/05/19 00:40 00:40 10:45 WBC 7.8 RBC 4.30 Hgb 13.4 Hct 40.1 MCV 93.1 MCH 31.1 MCHC 33.5 RDW 14.2 Plt Count 219 Neut % (Auto) 79.7 H Lymph % (Auto) 9.5 L [place] % (Auto) 4.7 Eos % (Auto) 5.0 H Baso % (Auto) 1.1 Neut # (Auto) 6200 Lymph # (Auto) 700 L [place] # (Auto) 400 Eos # (Auto) 400 Baso # (Auto) 100 Sodium 137 Potassium 4.1 Chloride 95 L Carbon Dioxide 33 H BUN 37 H Creatinine 0.80 Estimated GFR > 60.0 BUN/Creatinine Ratio 46.3 H Glucose 88 Calcium 8.1 L Urine Color Yellow Urine Appearance Clear Urine pH 7.5 Ur Specific [place] 1.010 Urine Protein Negative Urine Glucose (UA) Negative Urine Ketones Negative Urine Occult Blood 1+ H Urine Nitrate Negative Urine Bilirubin Negative Urine Urobilinogen 0.2 Ur Leukocyte Esterase Negative Urine RBC 1-5/hpf Urine WBC 1-5/hpf Ur Squamous Epith Cells 0-1 /hpf Urine Bacteria Occasional (0-1) Ur Culture Indicated? Cult not indicated Assessment & Plan Assessment & Plan narrative: 68-year-old female admitted for abdominal pain after an unremarkable gastrostomy tube exchange yesterday. Gastrostomy was initially placed in 2010 and has been chronically exchanged. On admission she was afebrile without leukocytosis or peritonitis. A tube study and CT abdomen both demonstrate the tube appropriately positioned within the stomach without l eak or free fluid. The imaging is significant for some dilated bowel and a significantly distended bladder. Plan Rivera catheter for urinary retention, Urinalysis evaluate for urinary tract infection Tube to gravity for now will resume feeds when abodminal pain improved. Quality VTE Deep Vein Thrombosis/Pulmonary Embolism Present on Admission: No
--- NOTE | 2019-01-05 13:14 | CM.DANOTE ---
DCP/Assessment: Reviewed chart. Patient is a 68yr old female admitted to [facility] for abdominal pain after PEG tube exchange on 01-04-19. PCP is Dr. Lomeli. Primary payor is 1)Medicare 2)[place] 3)[facility] 4)[facility]. Met with patient and spouse explained CM/SW role. Patient resting comfortably in bed at time of visit. Spouse at bedside. Spouse reports that patient does receive state assistance and has 24hrs of care giving per week. Patient hopes to discharge once PEG tube issues resolved. Spouse reports that caregivers come on M,T,W and they are aware that they were not needed today secondary to hospitalization. D/C date unknown at this time. Patient reports at baseline she gets around short distances with cane. Patient discharged from hospital in 2016 on hospice services. However, she no longer is requiring hospice and has improved. Patient uses care giving services for PEG tube management, medications, and suctioning. At this time, patient and spouse comfortable returning home once medically stable. CM team to continue to follow if needs arise. P: Home when stable. JANIYA Do Discharge Planning/Care Management CM Discharge Assessment Start: 01/05/19 13:09 Freq: Status: Active Protocol: Document 01/05/19 13:09 LANDRYS (Rec: 01/05/19 13:14 KJS [id number]) Discharge Planning Assessment Assigned Microstrategy Developer JANIYA Do Contact Information Wolf Day (spouse) Advance Directives? Yes History Provided By Patient,Family Member,Medical Record Has Patient been admitted in last 30 No days? Prior Living Arrangements House Household Members spouse Type of transporation used prior to Relies on Others admit Independent with ADL's No Is patient alert and oriented? Yes Needs Assistance With Bathing,Managing Medications Caregiver for Another No DME Already Rented / Owned Cane Comment [facility] provides caregiving 3x per week for 8hrs. Contact is Maria Eugenia ph# [phone]- [phone]. Comment Pending outcome of hospitalization Comment State CM is Ok [place] # Barriers to Discharge No Discharge Plan Home Transportation Arrangement Family to provide transport Whiteboard Updated in Patient Room with Yes name and ext. # of Microstrategy Developer Review Status In Process Next Review Type Continued Stay Review
[2019-01-05] MEDS: BISACODYL 10 MG SUPP PR (16:57)
--- NOTE | 2019-01-05 21:02 | PC.NURSE ---
UPDATED ON PATIENTS WANT FOR GABAPENTIN AND CLONAZEPAM. MD WILL LOOK INTO HER MEDS AND UPDATE ME.
[2019-01-06] VITALS: BP 150/86; PULSE 82; RESP 18; TEMP 37.1; O2SAT 96
[2019-01-06] MEDS: SODIUM CHLORIDE 0.9% 1,000 ML 125 ML IV (05:13)
[2019-01-06 05:23] VITALS: BP 149/78; PULSE 74; RESP 18; TEMP 36.6; O2SAT 100
--- NOTE | 2019-01-06 08:28 | P.PN_ITS ---
Subjective Subjective Date Patient Seen: 01/06/19 Time Patient Seen: 08:28 Interval history: Rivera catheter inserted yesterday for urinary retention. Abdominal pain significantly improved. Feels back to normal. Tolerated her home meds via the gastrostomy tube without pain or nausea. Exam Vital Signs (past 8 hours): - 01/06/19 05:23 Temperature 97.8 F Pulse Rate 74 Respiratory Rate 18 Blood Pressure 149/78 H Pulse Oximetry 100 Oxygen Delivery Method Room Air Oxygen Flow Rate 7 Narrative Exam Narrative: General adult female alert oriented no acute distress Abdomen soft nondistended gastrostomy tube at 3 cm from skin Objective Labs Result Diagrams: 01/05/19 00:40 01/05/19 00:40 Labs: Laboratory Results - last 24 hr 01/05/19 10:45 Urine Color Yellow Urine Appearance Clear Urine pH 7.5 Ur Specific [place] 1.010 Urine Protein Negative Urine Glucose (UA) Negative Urine Ketones Negative Urine Occult Blood 1+ H Urine Nitrate Negative Urine Bilirubin Negative Urine Urobilinogen 0.2 Ur Leukocyte Esterase Negative Urine RBC 1-5/hpf Urine WBC 1-5/hpf Ur Squamous Epith Cells 0-1 /hpf Urine Bacteria Occasional (0-1) Ur Culture Indicated? Cult not indicated Assessment & Plan Assessment & Plan narrative: 68year-old female admitted to the hospital for abdominal pain after gastrostomy tube exchange doing well today. Studies yesterday including a CT of the abdomen demonstrated the gastrostomy tube in appropriate position with no evidence of leak. For unclear reason she had large volume of urinary retention which I think was the major factor causing her abdominal pain and distension. Urinalysis was negative for infection. Will remove Rivera catheter this morning and resume home tube feeds. If tolerates and voiding consider discharge home later today Quality VTE Deep Vein Thrombosis/Pulmonary Embolism Present on Admission: No
[2019-01-06 08:32] VITALS: BP 144/81; PULSE 83; RESP 16; TEMP 36.8; O2SAT 100
[2019-01-06] MEDS: BISACODYL 10 MG SUPP PR (10:27)
[2019-01-06 11:00] VITALS: O2SAT 100
--- NOTE | 2019-01-06 11:10 | PC.NURSE ---
Addendum entered by Jess Kumar R.N. 01/06/19 14:58: DC - pt belongings gathered, including her reji AFO, clothing, tube feed supplies, trach supplies, clothing, cell phone and billing customer service representative, Carlos reviewed the dc instructions, no new medications, tsf to wc and escorted by manager part to spouse's car. Addendum entered by Jess Kumar R.N. 01/06/19 11:29: GI - after admin suppos, pt up to bsc with extra large softly formed brown stool, states viola earlier tube feed. Original Note: AM NOTE - pt is alert and denies nausea this am, some abd discomfort, did get up this am x2 bsc w/med and then small formed stool, pt req another suppos, bt are present, hoff balloon deflated and dc'd w/o difficulty, voided after removal, per discussion w/pt spouse and will begin tube bolus feed this am, pt own promote with fiber was admin, started with no residual, flushed with water before and after, given 1/2 usual 240ml am supplement, tolerated, spouse cleaned and changed the t drain around her button, some hx excoriation, skin prep applied, admin dulcolax suppos this am.
[2019-01-06 12:00] VITALS: BP 141/73; PULSE 91; RESP 15; TEMP 37.9; O2SAT 100
--- NOTE | 2019-01-06 12:54 | P.DS_ITS ---
History of Present Illness History of Present Illness Date Patient Seen: 01/06/19 Time Patient Seen: 12:54 Chief complaint: NEEDS GTUBE REPLACED Narrative: Patient is a woman who had a feeding tube changed in the office. She presented with abdominal distension that initially was concerned might be related to the feeding tube. She was brought in because of that distention and dehydration. She has a permanent tracheostomy and is fed only through the feeding tube. Discharge Providers Provider Date of admission: 01/05/19 01:30 Discharge Date: 01/06/19 Primary care physician: Wolf Lomeli MD Discharge provider: Zaheer Farmer MD Summary Hospital Course Discharge Diagnosis: Colonic distension with partial obstruction due to compression by a distended bladder. Permanent tracheostomy Permanent gastrostomy tube History of thyroid cancer Hospital Course: Patient was admitted. She underwent a through the tube contrast studies showed the tube appeared to be in the correct position. Price petty because of the distention she underwent a CT scan that confirmed the correct positioning of the tube but also noted a very distended bladder that seemed to be compressing her sigmoid colon and rectum. A Rivera catheter was placed and she had return of bowel function and improvement in her distention. The Rivera was subsequently removed and she has been able to urinate and defecate. She feels back to baseline and is being discharged on her pre-admission meds and feeding schedule. Exam Vital Signs (past 8 hours): - 01/06/19 05:23 01/06/19 08:32 01/06/19 11:00 Temperature 97.8 F 98.3 F Pulse Rate 74 83 Respiratory Rate 18 16 Blood Pressure 149/78 H 144/81 H Pulse Oximetry 100 100 100 Oxygen Delivery Method Room Air Oxygen Flow Rate 0 Narrative Exam Narrative: Thin woman presently sitting up smiling in no distress. Abdomen is now scaphoid. Tube was in good position. Objective Labs Result Diagrams: 01/05/19 00:40 01/05/19 00:40 Discharge Plan Discharge Plan Discharge Problem: PEG tube malfunction Patient Disposition: Home Discharge comment: Resume pre-admission feedings and medication Discharge Med Rec/Prescriptions Prescriptions: Continued clobetasol 0.05 % ointment 0 Topical BID Qty: 30 RF: 2 methadone 5 MG/5 ML solution 5 mg feeding tube BID Qty: 0 RF: 0 imipramine HCl 50 MG tablet 50 mg PO BEDTIME Qty: 0 RF: 0 cyclobenzaprine 10 mg tablet PO TIDP PRNQty: 0 RF: 0 sennosides [senna] 8.6 MG tablet 8.6 mg PO Qty: 0 RF: 0 fluticasone propionate [Flonase Allergy Relief] 9.9 ML spray,suspension 2 spray Intranasal QDAY Qty: 0 RF: 0 methocarbamol 500 MG tablet 500 mg feeding tube TID Qty: 0 RF: 0 ascorbic acid (vitamin C) 1,000 mg tablet 500 mg Feeding Tube DAILY RF: 0 ranitidine HCl 15 mg/mL syrup 300 mg Feeding Tube DAILY RF: 0 albuterol sulfate 2.5 mg /3 mL (0.083 %) solution for nebulization 2.5 mg INHALATION Q4-6H PRNRF: 0 ondansetron 4 mg tablet,disintegrating 4 mg Feeding Tube Q4H PRN (Reason: Nausea) RF: 0 ibuprofen [Children's Advil] 100 mg/5 mL suspension 400 mg Feeding Tube Q4H PRN (Reason: Headache) RF: 0 dextromethorphan-guaifenesin [Vicks Dayquil Mucus Control DM] 10-200 mg/15 mL liquid 30 ml PO RF: 0 meclizine 25 mg tablet 25 mg Feeding Tube Q6H PRN (Reason: Dizziness) RF: 0 levothyroxine 200 mcg tablet 225 mcg Feeding Tube DAILY RF: 0 clonazepam 0.5 mg tablet,disintegrating 0.5 mg Feeding Tube TID RF: 0 cyclobenzaprine 5 mg tablet 5 mg Feeding Tube TID PRN (Reason: Anxiety) RF: 0 methadone 10 mg/mL concentrate 6 mg Feeding Tube Q12H RF: 0 gabapentin 250 mg/5 mL solution 900 mg Feeding Tube BID RF: 0 Promote with Fiber 0.06 gram-1 kcal/mL Liquid See Rx Instructions .ROUTE .COMPLEX RF: 0 nystatin 100,000 unit/mL Suspension 5 ml PO BEDTIME RF: 0 venlafaxine 75 mg Tablet 225 mg feeding tube DAILY RF: 0 sennosides [senna] 8.8 mg/5 mL Syrup 17.6 mg feeding tube BEDTIME RF: 0 hydrocortisone 2.5 % Cream 1 applic TOPICAL PRN PRN (Reason: Rash) RF: 0 zolpidem [Ambien] 5 mg Tablet 5 mg feeding tube BEDTIME PRN (Reason: Sleep) RF: 0 nystatin 100,000 unit/gram Powder 1 applic TOPICAL PRN PRN (Reason: Rash) RF: 0 ipratropium bromide 42 mcg (0.06 %) [place],Non-Aerosol 2 spray INTRANASAL TID RF: 0 acetaminophen 500 mg/15 mL Liquid 1,000 mg PO Q4H PRN (Reason: Headache) RF: 0 lorazepam 2 mg/mL Concentrate 0.5 mg PO Q2H PRN (Reason: Anxiety) RF: 0 glycerin (adult) Suppository 1 supp MT Q3D PRN (Reason: Constipation) RF: 0 cetirizine [Wal-Zyr (cetirizine)] 1 mg/mL Solution 5 mg feeding tube Q12H PRN (Reason: Secretions) RF: 0 melatonin 5 mg Tablet 5 mg feeding tube BEDTIME PRN (Reason: Sleep) RF: 0 ferrous sulfate 220 mg (44 mg iron)/5 mL Elixir 330 mg feeding tube TID RF: 0 Follow up/Referrals: Wolf Lomeli MD [Primary Care Provider] - Provider Discharge Instructions Diet: Tube Feeding Activity: As tolerated Discharge Data Primary Care Provider: Wolf Lomeli Attending Provider: Prosper Camacho Admit Date/Time: 01/05/19 01:30 Quality VTE Deep Vein Thrombosis/Pulmonary Embolism Present on Admission: No
[2019-01-06 13:30] VITALS: RESP 18; O2SAT 97
--- NOTE | 2019-01-06 14:03 | PC.NURSE ---
Discharge order filed, patient and spouse ready and eager to get home. IV dc'd intact, patient tolerated well. Discharge instructions reviewed with patient and her spouse. No further questions or concerns at this time.
== END 2019-01-06 14:00 | disposition home or self-care (01) ==
LOC: ED 01:30 → AC 01:31
PROVIDERS: Specialist; Admitting Provider Surgery; Emergency Provider Emergency Medicine; Family Provider Family Medicine; PCP Family Medicine; Visit Provider Surgery
DX: N32.89 Other specified disorders of bladder (principal); R10.9 Unspecified abdominal pain; K63.89 Other specified diseases of intestine; R33.9 Retention of urine, unspecified; Z93.0 Tracheostomy status; Z93.1 Gastrostomy status
CPT/HCPCS: 36591; 74018; 74177; 80048; 81001; 85025; 94760; 94799; 96374; 96376; 99217; 99220; 99282; 99285; G0378; J2270; Q9967

== ENCOUNTER → 2019-03-08 12:44 | Outpatient (CLI) | payer MEDICARE, OTHER, MEDICAID, SELFPAY ==
[2019-01-05 02:08] VITALS: BMI 20.7
--- NOTE | 2019-03-08 | DI.RAD.S_ITS ---
PROCEDURE: XR CHEST 2V INDICATIONS: DYSPNEA/WHEEZING/HOARSENESS TECHNIQUE: 2 views of the chest were acquired. COMPARISON: [facility], CT, CT ABDOMEN PELVIS W CON, 01/05/2019, 9:15. [facility], CR, XR CHEST 2V, 09/23/2018, 16:57. [facility], CR, XR CHEST 2V, 09/22/2017, 14:29. FINDINGS: Surgical changes and devices: None. Lungs and pleura: Lungs are clear. No pleural effusions or pneumothorax. Mediastinum: Mediastinal contours are normal. Heart size is normal. Bones and chest wall: No suspicious bony abnormalities. Soft tissues appear unremarkable. IMPRESSION: No trauma found, no sign of pneumonia. Lung volumes are somewhat enlarged but the diaphragms are not flattened. By this examination underlying infection or neoplasm is not suspected. Dictated by: Kaleb Gonzalez M.D. on 03/08/2019 at 14:14 Approved by: Kaleb Gonzalez M.D. on 03/08/2019 at 14:15
== END ==
PROVIDERS: PCP Family Medicine; Visit Provider Family Medicine
DX: R06.00 Dyspnea, unspecified (principal); R06.2 Wheezing; R49.0 Dysphonia
CPT/HCPCS: 71046

== ENCOUNTER → 2019-03-22 09:52 | Outpatient (CLI) | payer MEDICARE, OTHER, MEDICAID, SELFPAY ==
[2019-01-05 02:08] VITALS: BMI 20.7
--- NOTE | 2019-03-22 | DI.RAD.S_ITS ---
PROCEDURE: [place] GUIDED PICC PLACEMENT INDICATIONS: Methicillin resistant Staphylococcus aureus infect COMPARISON: [facility], , [place] PICC W FLUOROGUIDE, 10/01/2018, 9:13. FINDINGS: PICC was placed by the intravenous therapy team from the right side. Fluoroscopic spot film demonstrates the tip of PICC projecting to the area of lower SVC IMPRESSION: Tip of PICC projects to the area of lower SVC. Dictated by: Neeraj Cabello M.D. on 03/22/2019 at 13:44 Approved by: Neeraj Cabello M.D. on 03/22/2019 at 13:45
== END ==
PROVIDERS: PCP Family Medicine; Visit Provider Family Medicine
DX: A49.02 Methicillin resistant Staphylococcus aureus infection, unspecified site (principal)
CPT/HCPCS: 36573

== ENCOUNTER → 2019-03-25 10:50 | Outpatient (ROUT) | payer MEDICARE, OTHER, MEDICAID, SELFPAY ==
[2019-01-05 02:08] VITALS: BMI 20.7
[2019-03-25 11:01] LABS: Add Manual Diff / Slide Review NO; Basophils Absolute Auto 0 /uL (0-100); Basophils Percent Auto 1.5 % (0-2); Eosinophils Absolute Auto 300 /uL (0-450); Eosinophils Percent Auto 9.5 % (2-4); Hematocrit 35.1 % (36-46); Hemoglobin 11.8 g/dL (12.0-16.0); Lymphocytes Absolute Auto 500 /uL (1100-4500); Lymphocytes Percent Auto 16.2 % (25-40); Mean Corpuscular HGB Conc 33.5 % (30-36); Mean Corpuscular Hemoglobin 32.3 PG (26-34); Mean Corpuscular Volume 96.4 fL (80-100); Monocytes Absolute Auto 300 /uL (0-900); Monocytes Percent Auto 10.6 % (3-14); Neutrophils Absolute Auto 1900 /uL (1500-7000); Neutrophils Percent Auto 62.2 % (50-75); Platelet Count 237 X10^3/uL (150-400); Red Blood Cell Count 3.65 X10^6/uL (4.0-5.2); Red Cell Distribution Width 12.3 % (11.6-14.8); White Blood Cell Count 3.1 X10^3/uL (4.5-11.0)
[2019-03-25 11:06] LABS: Alanine Aminotransferase 14 IU/L (<35); Albumin 4.3 g/dL (3.5-5.0); Albumin Globulin Ratio 1.3 (1.0-2.8); Alkaline Phosphatase 89 U/L (38-126); Aspartate Aminotransferase 23 IU/L (14-36); BUN Creatinine Ratio 42.9 (6-22); Bilirubin Total 0.4 mg/dL (0.2-1.3); Blood Urea Nitrogen 30 mg/dL (7-17); Calcium 8.7 mg/dL (8.4-10.2); Carbon Dioxide 30 mmol/L (22-32); Chloride 102 mmol/L (98-107); Estimated Glomerular Filt Rate > 60.0 mL/min (>60); Globulin 3.2 g/dL (1.7-4.1); Glucose 88 mg/dL (80-110); HEMOLYSIS < 15 (0-50); Potassium 4.3 mmol/L (3.4-5.1); Sodium 141 mmol/L (137-145); Total Protein 7.5 g/dL (6.3-8.2)
[2019-03-25 11:11] LABS: Vancomycin Trough 10.2 ug/mL (10-20)
== END ==
PROVIDERS: PCP Family Medicine; Visit Provider Family Medicine
DX: A49.02 Methicillin resistant Staphylococcus aureus infection, unspecified site (principal)
CPT/HCPCS: 80053; 80202; 85025

== ENCOUNTER → 2019-04-01 10:48 | Outpatient (ROUT) | payer MEDICARE, OTHER, MEDICAID, SELFPAY ==
[2019-01-05 02:08] VITALS: BMI 20.7
[2019-04-01 10:55] LABS: Add Manual Diff / Slide Review NO; Basophils Absolute Auto 0 /uL (0-100); Basophils Percent Auto 0.8 % (0-2); Eosinophils Absolute Auto 200 /uL (0-450); Eosinophils Percent Auto 3.9 % (2-4); Hematocrit 36.6 % (36-46); Hemoglobin 12.4 g/dL (12.0-16.0); Lymphocytes Absolute Auto 600 /uL (1100-4500); Lymphocytes Percent Auto 14.2 % (25-40); Mean Corpuscular HGB Conc 33.8 % (30-36); Mean Corpuscular Hemoglobin 32.4 PG (26-34); Mean Corpuscular Volume 95.9 fL (80-100); Monocytes Absolute Auto 200 /uL (0-900); Monocytes Percent Auto 5.1 % (3-14); Neutrophils Absolute Auto 3500 /uL (1500-7000); Platelet Count 248 X10^3/uL (150-400); Red Blood Cell Count 3.82 X10^6/uL (4.0-5.2); Red Cell Distribution Width 12.2 % (11.6-14.8); White Blood Cell Count 4.5 X10^3/uL (4.5-11.0)
[2019-04-01 11:01] LABS: Alanine Aminotransferase 13 IU/L (<35); Albumin 4.4 g/dL (3.5-5.0); Albumin Globulin Ratio 1.3 (1.0-2.8); Alkaline Phosphatase 86 U/L (38-126); Aspartate Aminotransferase 22 IU/L (14-36); Bilirubin Total 0.7 mg/dL (0.2-1.3); Blood Urea Nitrogen 32 mg/dL (7-17); Calcium 9.1 mg/dL (8.4-10.2); Carbon Dioxide 27 mmol/L (22-32); Chloride 103 mmol/L (98-107); Estimated Glomerular Filt Rate > 60.0 mL/min (>60); Globulin 3.4 g/dL (1.7-4.1); Glucose 180 mg/dL (80-110); HEMOLYSIS < 15 (0-50); Potassium 4.4 mmol/L (3.4-5.1); Sodium 141 mmol/L (137-145); Total Protein 7.8 g/dL (6.3-8.2)
[2019-04-01 11:05] LABS: Vancomycin Trough 11.6 ug/mL (10-20)
== END ==
PROVIDERS: PCP Family Medicine; Visit Provider Family Medicine
DX: A49.02 Methicillin resistant Staphylococcus aureus infection, unspecified site (principal)
CPT/HCPCS: 80053; 80202; 85025

== ENCOUNTER → 2019-05-06 13:06 | Outpatient (CLI) | payer MEDICARE, OTHER, MEDICAID, SELFPAY ==
[2019-01-05 02:08] VITALS: BMI 20.7
[2019-05-06 13:50] LABS: Alanine Aminotransferase 16 IU/L (<35); Albumin 4.1 g/dL (3.5-5.0); Albumin Globulin Ratio 1.2 (1.0-2.8); Alkaline Phosphatase 74 U/L (38-126); Aspartate Aminotransferase 27 IU/L (14-36); BUN Creatinine Ratio 53.8 (6-22); Bilirubin Total 0.3 mg/dL (0.2-1.3); Blood Urea Nitrogen 43 mg/dL (7-17); Calcium 8.3 mg/dL (8.4-10.2); Carbon Dioxide 34 mmol/L (22-32); Chloride 98 mmol/L (98-107); Estimated Glomerular Filt Rate > 60.0 mL/min (>60); Globulin 3.5 g/dL (1.7-4.1); Glucose 58 mg/dL (80-110); HEMOLYSIS < 15 (0-50); Potassium 4.7 mmol/L (3.4-5.1); Sodium 139 mmol/L (137-145); Total Protein 7.6 g/dL (6.3-8.2)
--- NOTE | 2019-05-06 14:09 | DI.CT.S_ITS ---
PROCEDURE: CT ABDOMEN PELVIS W CON INDICATIONS: POSSIBLE G-TUBE LEAKING TECHNIQUE: After the administration of intravenous contrast, 5 mm thick sections acquired from the diaphragm to the symphysis. 5 mm coronal and sagittal reformats were acquired. For radiation dose reduction, the following was used: automated exposure control, adjustment of mA and/or kV according to patient size. COMPARISON: [facility], CT, CT ABDOMEN PELVIS W CON, 01/05/2019, 9:15. FINDINGS: Image quality: Excellent. ABDOMEN: Lung bases: Minimal tree in bud nodularity posterior medial and the right lower lobe. There is a solid noncalcified 1.0 cm round nodule at the left lung base. Smooth pleural based consolidation posterolaterally at the left lung base.. Heart size is normal. Solid organs: Liver is normal in size and enhancement. The occasional scattered tiny hypodensities throughout the liver, likely cysts or hemangiomas, stable in number and size. Gallbladder contains a small amount of dependent noncalcified material near the fundus.. Biliary system is non dilated. Pancreas enhances normally. Spleen is normal in size and enhancement. No adrenal nodules. Kidneys demonstrate normal size and enhancement, without hydronephrosis. Peritoneum and bowel: Bowel loops demonstrate normal wall thickness and caliber. The fluid in the stomach. There is a gastric antral PEG tube in place. The balloon is inflated in the anterior gastric wall is closely opposed to the anterior abdominal wall and the skin surface. There are no intervening subcutaneous fluid collections or inflammation. Small bowel is normal without obstruction. There is an increased quantity of solid stool throughout colon. No pericolonic inflammation. Appendix was not identified. No free fluid or air. Nodes and vessels: No retroperitoneal or mesenteric adenopathy by size criteria. Aorta and inferior vena cava are normal in size. Miscellaneous: No ventral hernias. PELVIS: Genitourinary: Bladder wall thickness is normal. Hysterectomy. Miscellaneous: No inguinal hernias or adenopathy. Bones: No suspicious bony lesions. Chronic left lower posterior rib arc bone island. No vertebral body compression fractures. IMPRESSION: 1. No abdominal wall abscess at the G-tube location. 2. Very close apposition of the G-tube balloon to the skin surface. If this has been chronically positioned as such, there may be intervening tissue ischemia/necrosis. Correlate clinically. 3. Constipation. 4. Mild pneumonitis in the medial right lung base suggesting aspiration or infection. 5. Findings most suggestive of left base rounded atelectatic change. 6. Possible cholelithiasis. Dictated by: Yoselin Limon M.D. on 05/06/2019 at 16:04 Approved by: Yoselin Limon M.D. on 05/06/2019 at 16:17
== END ==
PROVIDERS: PCP Family Medicine; Visit Provider Family Medicine
DX: K28.9 Gastrojejunal ulcer, unspecified as acute or chronic, without hemorrhage or perforation (principal); J18.9 Pneumonia, unspecified organism; K59.00 Constipation, unspecified; Z93.0 Tracheostomy status
CPT/HCPCS: 36415; 74177; 80053

== ENCOUNTER → 2019-08-03 11:13 | Outpatient (CLI) | payer MEDICARE, OTHER, MEDICAID, SELFPAY ==
[2019-01-05 02:08] VITALS: BMI 20.7
[2019-08-03 12:25] LABS: BUN Creatinine Ratio 55.6 (6-22); Blood Urea Nitrogen 40 mg/dL (7-17); Calcium 8.7 mg/dL (8.4-10.2); Carbon Dioxide 30 mmol/L (22-32); Chloride 103 mmol/L (98-107); Estimated Glomerular Filt Rate > 60.0 mL/min (>60); Glucose 65 mg/dL (80-110); HEMOLYSIS < 15 (0-50); Potassium 4.8 mmol/L (3.4-5.1); Sodium 141 mmol/L (137-145)
[2019-08-03 12:45] LABS: Free T4, Direct Thyroxine 1.83 ng/dL (0.78-2.19)
[2019-08-03 12:59] LABS: Thyroid Stimulating Hormone < 0.02 uIU/mL (0.47-4.68)
[2019-08-04 18:07] LABS: Anti Thyroglobulin Antibody <1.0 IU/mL (0.0-0.9)
[2019-08-08 11:07] LABS: Thyroglobulin Level 5.9 ng/mL (.)
== END ==
PROVIDERS: PCP Family Medicine; Referring Provider Internal Medicine Endocrinology, Diabetes & Metabolism; Visit Provider Internal Medicine Endocrinology, Diabetes & Metabolism
DX: C73 Malignant neoplasm of thyroid gland (principal)
CPT/HCPCS: 36415; 80048; 84432; 84439; 84443; 86800

== ENCOUNTER → 2020-02-21 14:07 | Outpatient (CLI) | payer MEDICARE, OTHER, MEDICAID, SELFPAY ==
[2019-01-05 02:08] VITALS: BMI 20.7
--- NOTE | 2020-02-21 | DI.RAD.S_ITS ---
PROCEDURE: XR CHEST 2V INDICATIONS: COUGH TECHNIQUE: 2 views of the chest were acquired. COMPARISON: [facility], CR, XR CHEST 2V, 03/08/2019, 13:11. [facility], CR, XR CHEST 2V, 09/23/2018, 16:57. FINDINGS: Surgical changes and devices: None. Lungs and pleura: Lungs are clear. No pleural effusions or pneumothorax. Mediastinum: Mediastinal contours are normal. Heart size is normal. Bones and chest wall: No suspicious bony abnormalities. Soft tissues appear unremarkable. IMPRESSION: Normal for age, source of current cough symptoms is not seen. Dictated by: Kaleb Gonzalez M.D. on 02/21/2020 at 15:05 Approved by: Kaleb Gonzalez M.D. on 02/21/2020 at 15:05
== END ==
PROVIDERS: PCP Student in an Organized Health Care Education/Training Program; Referring Provider Family Medicine; Visit Provider Family Medicine
DX: R05 Cough (principal)
CPT/HCPCS: 71046

== ENCOUNTER → 2020-02-28 10:33 | Outpatient (CLI) | payer MEDICARE, OTHER, MEDICAID, SELFPAY ==
[2019-01-05 02:08] VITALS: BMI 20.7
[2020-02-28 11:37] LABS: Add Manual Diff / Slide Review NO; Basophils Absolute Auto 0 /uL (0-100); Basophils Percent Auto 0.4 % (0-2); Eosinophils Absolute Auto 100 /uL (0-450); Eosinophils Percent Auto 0.5 % (2-4); Hematocrit 36.3 % (36-46); Hemoglobin 12.3 g/dL (12.0-16.0); Lymphocytes Absolute Auto 500 /uL (1100-4500); Lymphocytes Percent Auto 4.5 % (25-40); Mean Corpuscular HGB Conc 33.7 % (30-36); Mean Corpuscular Hemoglobin 32.2 PG (26-34); Mean Corpuscular Volume 95.5 fL (80-100); Monocytes Absolute Auto 600 /uL (0-900); Monocytes Percent Auto 6.2 % (3-14); Neutrophils Absolute Auto 9200 /uL (1500-7000); Neutrophils Percent Auto 88.4 % (50-75); Platelet Count 340 X10^3/uL (150-400); Red Blood Cell Count 3.81 X10^6/uL (4.0-5.2); Red Cell Distribution Width 11.8 % (11.6-14.8); White Blood Cell Count 10.4 X10^3/uL (4.5-11.0)
[2020-02-28 12:15] LABS: HEMOLYSIS < 15 (0-50); Iron 32 ug/dL (37-170)
[2020-02-28 12:16] LABS: Alanine Aminotransferase 15 IU/L (<35); Albumin 4.4 g/dL (3.5-5.0); Albumin Globulin Ratio 1.1 (1.0-2.8); Alkaline Phosphatase 89 U/L (38-126); Aspartate Aminotransferase 23 IU/L (14-36); BUN Creatinine Ratio 48.7 (6-22); Bilirubin Total 0.3 mg/dL (0.2-1.3); Blood Urea Nitrogen 38 mg/dL (7-17); Calcium 8.4 mg/dL (8.4-10.2); Carbon Dioxide 36 mmol/L (22-32); Chloride 98 mmol/L (98-107); Estimated Glomerular Filt Rate > 60.0 mL/min (>60); Globulin 3.9 g/dL (1.7-4.1); Glucose 82 mg/dL (80-110); HEMOLYSIS < 15 (0-50); Potassium 4.7 mmol/L (3.4-5.1); Sodium 138 mmol/L (137-145); Total Protein 8.3 g/dL (6.3-8.2)
[2020-02-28 12:25] LABS: Percent Iron Saturation 12 % (15-50); Total Iron Binding Capacity 277 ug/dL (265-497); Transferrin 209 mg/dL (206-381)
[2020-02-28 17:50] LABS: Reticulocyte Count, Percent 1.1 % (1.06-2.63)
== END ==
PROVIDERS: PCP Student in an Organized Health Care Education/Training Program; Referring Provider Student in an Organized Health Care Education/Training Program; Visit Provider Student in an Organized Health Care Education/Training Program
DX: D50.9 Iron deficiency anemia, unspecified (principal); C76.0 Malignant neoplasm of head, face and neck; G61.0 Guillain-Barre syndrome; Z79.899 Other long term (current) drug therapy
CPT/HCPCS: 36415; 80053; 83540; 83550; 85025; 85045

== ENCOUNTER → 2020-03-01 13:52 | Outpatient (CLI) | payer MEDICARE, OTHER, MEDICAID, SELFPAY ==
[2019-01-05 02:08] VITALS: BMI 20.7
== END ==
PROVIDERS: PCP Student in an Organized Health Care Education/Training Program; Referring Provider Student in an Organized Health Care Education/Training Program; Visit Provider Student in an Organized Health Care Education/Training Program
DX: Z13.820 Encounter for screening for osteoporosis (principal); M81.0 Age-related osteoporosis without current pathological fracture; Z78.0 Asymptomatic menopausal state; C73 Malignant neoplasm of thyroid gland; Z91.89 Other specified personal risk factors, not elsewhere classified
CPT/HCPCS: 77080

== ENCOUNTER → 2020-03-26 18:08 | Outpatient (CLI) | payer MEDICARE, OTHER, MEDICAID, SELFPAY ==
[2020-03-26 17:32] VITALS: BMI 20.7
[2020-03-27 08:45] LABS: COVID19 -Nasal RAPID Negative (Negative)
== END ==
PROVIDERS: PCP Student in an Organized Health Care Education/Training Program; Visit Provider Student in an Organized Health Care Education/Training Program
DX: R05 Cough (principal); R50.9 Fever, unspecified
CPT/HCPCS: 87635

== ENCOUNTER → 2020-03-27 07:20 | Outpatient (CLI) | payer MEDICARE, OTHER, MEDICAID, SELFPAY ==
[2020-03-26 17:32] VITALS: BMI 20.7
--- NOTE | 2020-03-27 12:04 | DI.RAD.S_ITS ---
PROCEDURE: XR CHEST 2V INDICATIONS: Worsening chest congestion TECHNIQUE: 2 views of the chest were acquired. COMPARISON: [facility], CT, CT ABDOMEN PELVIS W CON, 05/06/2019, 14:09. [facility], CR, XR CHEST 2V, 03/08/2019, 13:11. [facility], CR, XR CHEST 2V, 02/21/2020, 13:19. FINDINGS: Surgical changes and devices: None. Lungs and pleura: Hyperinflation consistent with COPD. Left lower lobe infiltrates and small left pleural effusion. No pneumothorax. Mediastinum: Mediastinal contours are normal. Heart size is normal. Bones and chest wall: No suspicious bony abnormalities. Soft tissues appear unremarkable. IMPRESSION: 1. Left lower lobe infiltrate and small left pleural effusion consistent with pneumonia. 2. Hyperinflation consistent with COPD. Dictated by: Ori Locke M.D. on 03/27/2020 at 13:11 Approved by: Ori Locke M.D. on 03/27/2020 at 13:13
== END ==
PROVIDERS: PCP Student in an Organized Health Care Education/Training Program; Visit Provider Student in an Organized Health Care Education/Training Program
DX: R50.9 Fever, unspecified (principal); R05 Cough; Z93.0 Tracheostomy status; Z11.59 Encounter for screening for other viral diseases
CPT/HCPCS: 71046; 87070; 87077; 87186; 87205; C9803

== ENCOUNTER → 2020-06-28 10:51 | Outpatient (CLI) | payer MEDICARE, OTHER, MEDICAID, SELFPAY ==
[2020-03-26 17:32] VITALS: BMI 20.7
[2020-06-28] MEDS: COVID-19 VACC, Ad26(JANSSEN)/PF 0.5 ML IM (10:58)
== END ==
PROVIDERS: PCP Student in an Organized Health Care Education/Training Program; Visit Provider Internal Medicine
DX: Z23 Encounter for immunization (principal)
CPT/HCPCS: 0031A; 91303

== ENCOUNTER → 2020-07-04 15:31 | Outpatient (CLI) | payer MEDICARE, OTHER, MEDICAID, SELFPAY ==
[2020-03-26 17:32] VITALS: BMI 20.7
== END ==
PROVIDERS: PCP Student in an Organized Health Care Education/Training Program; Visit Provider Student in an Organized Health Care Education/Training Program
DX: R09.3 Abnormal sputum (principal)
CPT/HCPCS: 87070; 87077; 87147; 87186; 87205

== ENCOUNTER → 2020-08-07 11:30 | Outpatient (CLI) | payer MEDICARE, OTHER, MEDICAID, SELFPAY ==
[2020-03-26 17:32] VITALS: BMI 20.7
--- NOTE | 2020-08-07 | DI.MG.S_ITS ---
BILATERAL DIGITAL SCREENING MAMMOGRAM 3D/2D WITH CAD: 08/07/2020 CLINICAL: Routine screening. Family history of breast cancer. Comparison is made to exams dated: 08/10/2017 mammogram - [facility], 04/29/2016 mammogram, and 03/09/2015 mammogram - [facility]. The tissue of both breasts is heterogeneously dense. This may lower the sensitivity of mammography. Current study was also evaluated with a Computer Aided Detection (CAD) system. No significant masses, calcifications, or other findings are seen in either breast. There has been no significant interval change. IMPRESSION: NEGATIVE There is no mammographic evidence of malignancy. A 1 year screening mammogram is recommended. This exam was interpreted at Station ID: [id number]. NOTE: For mammograms, a report in lay terms will be sent to the patient. Approximately 15% of breast malignancies will not be visualized mammographically. In the management of a palpable breast mass, a negative mammogram must not discourage biopsy of a clinically suspicious lesion. Electronically Signed By: Gagan hobbs/gloria:08/07/2020 12:08:39 letter sent: Normal Exam ACR BI-RADS Category 1: Negative [id number]
== END ==
PROVIDERS: Family Provider Student in an Organized Health Care Education/Training Program; PCP Student in an Organized Health Care Education/Training Program; Referring Provider Student in an Organized Health Care Education/Training Program; Visit Provider Student in an Organized Health Care Education/Training Program
DX: Z12.31 Encounter for screening mammogram for malignant neoplasm of breast (principal); Z80.3 Family history of malignant neoplasm of breast
CPT/HCPCS: 77063; 77067

== ENCOUNTER 2020-09-13 19:37 | Emergency (ER) | payer MEDICARE, OTHER, MEDICAID, SELFPAY ==
[2020-03-26 17:32] VITALS: BMI 20.7
[2020-09-13 19:55] VITALS: BP 180/84; PULSE 60; RESP 14; TEMP 36.5; O2SAT 98; BMI 17.9
== END 2020-09-13 20:54 | disposition left against medical advice (07) ==
PROVIDERS: Emergency Provider Emergency Medicine; Family Provider Student in an Organized Health Care Education/Training Program; PCP Student in an Organized Health Care Education/Training Program
CPT/HCPCS: 99281

== ENCOUNTER 2020-12-21 13:22 | Emergency (ER) | payer MEDICARE, OTHER, MEDICAID, SELFPAY ==
[2020-03-26 17:32] VITALS: BMI 20.7
[2020-12-21 13:25] VITALS: BP 109/55; PULSE 77; RESP 16; TEMP 36.9; O2SAT 98; BMI 18.0
--- NOTE | 2020-12-21 13:36 | DI.RAD.S_ITS ---
PROCEDURE: XR CHEST 1V INDICATIONS: suspected sepsis TECHNIQUE: One view of the chest was acquired. COMPARISON: [facility], CR, XR CHEST 2V, 03/27/2020, 13:23. FINDINGS: Surgical changes and devices: Multiple surgical clips are stable. Lungs and pleura: Bilateral patchy lung opacities. No pleural effusions or pneumothorax. Mediastinum: Mediastinal contours appear normal. Heart size is normal. Bones and chest wall: No suspicious bony lesions. Overlying soft tissues appear unremarkable. IMPRESSION: Bilateral lung multilobar pneumonia. Dictated by: Alejandra Mcintosh MD, PhD on 12/21/2020 at 14:33 Approved by: Alejandra Mcintosh MD, PhD on 12/21/2020 at 14:34
[2020-12-21 14:04] LABS: COVID19 -Nasal RAPID Negative (Negative)
[2020-12-21 14:09] LABS: Add Manual Diff / Slide Review NO; Basophils Absolute Auto 0 /uL (0-100); Basophils Percent Auto 0.6 % (0-2); Eosinophils Absolute Auto 100 /uL (0-450); Eosinophils Percent Auto 1.9 % (2-4); Hematocrit 34.8 % (36-46); Hemoglobin 11.6 g/dL (12.0-16.0); Lymphocytes Absolute Auto 300 /uL (1100-4500); Mean Corpuscular HGB Conc 33.4 % (30-36); Mean Corpuscular Hemoglobin 31.1 PG (26-34); Mean Corpuscular Volume 92.9 fL (80-100); Monocytes Absolute Auto 700 /uL (0-900); Monocytes Percent Auto 8.9 % (3-14); Neutrophils Absolute Auto 6300 /uL (1500-7000); Neutrophils Percent Auto 84.6 % (50-75); Platelet Count 259 X10^3/uL (150-400); Red Blood Cell Count 3.75 X10^6/uL (4.0-5.2); Red Cell Distribution Width 12.9 % (11.6-14.8); White Blood Cell Count 7.5 X10^3/uL (4.5-11.0)
[2020-12-21 14:22] LABS: Lactate (Lactic Acid) 0.7 mmol/L (0.7-2.1)
[2020-12-21 14:23] LABS: Alanine Aminotransferase 12 IU/L (<35); Albumin Globulin Ratio 1.1 (1.0-2.8); Alkaline Phosphatase 81 U/L (38-126); Aspartate Aminotransferase 24 IU/L (14-36); BUN Creatinine Ratio 35.8 (6-22); Bilirubin Total 0.2 mg/dL (0.2-1.3); Blood Urea Nitrogen 34 mg/dL (7-17); Carbon Dioxide 30 mmol/L (22-32); Chloride 90 mmol/L (98-107); Estimated Glomerular Filt Rate 57.8 mL/min (>60); Globulin 3.5 g/dL (1.7-4.1); Glucose 86 mg/dL (80-110); HEMOLYSIS < 15 (0-50); Lipase 273 U/L (23-300); Sodium 125 mmol/L (137-145); Total Protein 7.5 g/dL (6.3-8.2)
[2020-12-21 14:24] LABS: Potassium 4.9 mmol/L (3.4-5.1)
[2020-12-21 14:38] VITALS: PULSE 73; RESP 40; O2SAT 99
--- NOTE | 2020-12-21 14:44 | PC.NURSE ---
Pt states history of recurrent pneumonia.
[2020-12-21 15:00] VITALS: BP 124/58; PULSE 75; RESP 67; O2SAT 100
--- NOTE | 2020-12-21 15:29 | ED.SEPSIS ---
HPI - Sepsis General Chief Complaint: Fever Mode of arrival: Wheelchair Source: patient and family Limitations: no limitations Evaluation Sepsis Screen: No Definite Risk Sepsis Infection Criteria Present: Suspected New Infection Narrative: Patient is a wendy 70 year old female with a Chronic trach, peg tube secondary to thyroid cancer and hypothyroidism presenting today with fever cough and shortness of breath ongoing for the last 2 days. They have home health care and nursing staff has been monitoring vitals very closely blood pressure and heart rate have been within normal limits she has not had fever home. She did receive her COVID vaccine in June of 2020. He states this feels like previous pneumonia. She has a productive cough. Review of Systems Review of Systems Narrative: GENERAL: Denies chills, fatigue, malaise, fever, sweats, travel HEENT: Denies sinus pain, ear pain, sore throat, difficulty swallowing, neck pain RESPIRATORY: See HPI CARDIOVASCULAR: Denies chest pain, palpitations, orthopnea, edema GASTROINTESTINAL: Denies nausea, vomiting, abdominal pain, diarrhea, constipation, melena. : Denies dysuria, frequency, incontinence, hematuria, urinary retention, flank pain. MUSCULOSKELETAL: Denies weakness, joint pain, or bony pain SKIN: No rash, no erythema, no pruritus NEUROLOGIC: Denies weakness, dizziness, headache, numbness, change in speech, confusion PSYCHIATRIC: No concerning psychosocial issues. 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) History of radiation therapy (~1992) Horners syndrome (~2010) Hypothyroid Kidney disease (~1974) Measles (~1952) Migraines MRSA (methicillin resistant Staphylococcus aureus) (~2015) Mumps (~1956) Peripheral neuropathy (~2010) Pituitary adenoma Rubella (~1959) Seizures (~1958) Thyroid cancer (~1969) Vocal cord paralysis (~2010) Surgical History Anesthesia History of foot surgery (~2013) History of neck surgery (~2009) History of surgery (~2010) History of thyroid surgery (~1982) History of thyroidectomy (~1969) Family History Father Cancer Diabetes mellitus History of heart disease Hyperlipidemia Hypertension Polycythemia vera Mother High cholesterol History of heart disease Sister Age: 74 High cholesterol Sister High cholesterol Mental health problem Sister Asthma Grandmother Parkinson's disease Grandfather Cancer Social History household members: spouse Smoking Status: Never smoker Smoking Status: Never smoker alcohol intake frequency: holidays/special occasions only Substance Use Type: does not use Exam Initial Vital Signs Initial Vital Signs: Vital Signs Temperature 98.5 F 12/21/20 13:25 Pulse Rate 77 12/21/20 13:25 Respiratory Rate 16 12/21/20 13:25 Blood Pressure 109/55 L 12/21/20 13:25 Pulse Oximetry 98 12/21/20 13:25 GENERAL: Alert 68-year-old female rate present HEENT: Head atraumatic,EOMI, pupils reactive, face symmetric, trach present CARDIOVASCULAR: Regular rate and rhythm without murmurs, rubs or gallops. RESPIRATORY: slightly decreased breath sounds left side no respiratory distress ABDOMEN: Soft, nontender. Normoactive bowel sounds all 4 quadrants. No guarding or rebound. EXTREMITIES: Normal range of motion, no clubbing or edema. Neurovascularly intact NEUROLOGICAL: Alert and oriented x4.Normal gait and speech. SKIN: Warm, dry, no laceration, no petechiae, no rashes or lesions. Scores CURB-65 Confusion: No BUN >19mg/dL (>7mmol/L): Yes Respiratory rate greater or equal to 30: No SBP <90mmHg or DBP less or equal to 60mmHg: No Age 65 or Older: Yes CURB-65 Total: 2 Score 0-1 Outpatient care, Score 2 Inpt vs. Obs, Score 3 or over Inpt admit with ICU for score of 4-5 Course Orders Ordered: ED Orders 12/21/20 13:36 XR chest 1V Stat EKG-12 Lead Stat 12/21/20 13:41 COVID19 -Nasal swab/Pre-Proc Stat 12/21/20 13:57 Complete Blood Count AUTO DIFF Stat Comprehensive Metabolic Panel Stat Lactate (Lactic Acid) Stat Lipase Stat Procalcitonin Stat 12/21/20 14:22 Blood Culture Stat Vital Signs Vital signs: Vital Signs - 8 hr 12/21/20 13:25 12/21/20 14:38 12/21/20 15:00 Temperature 98.5 F Pulse Rate 77 73 75 Respiratory Rate 16 40 H 67 H Blood Pressure 109/55 L 124/58 L Pulse Oximetry 98 99 100 12/21/20 15:30 Temperature Pulse Rate 75 Respiratory Rate 19 Blood Pressure 114/56 L Pulse Oximetry 99 MDM - Sepsis Lab Data Result diagrams: 12/21/20 13:57 12/21/20 13:57 Labs: Lab Results 12/21/20 12/21/20 12/21/20 Range/Units 13:41 13:57 13:57 WBC 7.5 (4.5-11.0) X10^3/uL RBC 3.75 L (4.0-5.2) X10^6/uL Hgb 11.6 L (12.0-16.0) g/dL Hct 34.8 L (36-46) % MCV 92.9 (80-100) fL MCH 31.1 (26-34) PG MCHC 33.4 (30-36) % RDW 12.9 (11.6-14.8) % Plt Count 259 (150-400) X10^3/uL Neut % (Auto) 84.6 H (50-75) % Lymph % (Auto) 4.0 L (25-40) % [place] % (Auto) 8.9 (3-14) % Eos % (Auto) 1.9 L (2-4) % Baso % (Auto) 0.6 (0-2) % Neut # (Auto) 6300 (7378-0653) /uL Lymph # (Auto) 300 L (5545-4688) /uL [place] # (Auto) 700 (0-900) /uL Eos # (Auto) 100 (0-450) /uL Baso # (Auto) 0 (0-100) /uL Sodium 125 L (137-145) mmol/L Potassium 4.9 (3.4-5.1) mmol/L Chloride 90 L (98-107) mmol/L Carbon Dioxide 30 (22-32) mmol/L BUN 34 H (7-17) mg/dL Creatinine 0.95 (0.52-1.04) mg/dL Estimated GFR 57.8 L (>60) mL/min BUN/Creatinine Ratio 35.8 H (6-22) Glucose 86 (80-110) mg/dL Lactate (0.7-2.1) mmol/L Calcium 8.0 L (8.4-10.2) mg/dL Total Bilirubin 0.2 (0.2-1.3) mg/dL AST 24 (14-36) IU/L ALT 12 (<35) IU/L Alkaline Phosphatase 81 (38-126) U/L Total Protein 7.5 (6.3-8.2) g/dL Albumin 4.0 (3.5-5.0) g/dL Globulin 3.5 (1.7-4.1) g/dL Albumin/Globulin Ratio 1.1 (1.0-2.8) Lipase 273 (23-300) U/L Procalcitonin 0.20 (<0.5) ng/mL SARS-CoV-2 (PCR) Negative (Negative) 12/21/20 Range/Units 13:57 WBC (4.5-11.0) X10^3/uL RBC (4.0-5.2) X10^6/uL Hgb (12.0-16.0) g/dL Hct (36-46) % MCV (80-100) fL MCH (26-34) PG MCHC (30-36) % RDW (11.6-14.8) % Plt Count (150-400) X10^3/uL Neut % (Auto) (50-75) % Lymph % (Auto) (25-40) % [place] % (Auto) (3-14) % Eos % (Auto) (2-4) % Baso % (Auto) (0-2) % Neut # (Auto) (5150-8494) /uL Lymph # (Auto) (8862-4330) /uL [place] # (Auto) (0-900) /uL Eos # (Auto) (0-450) /uL Baso # (Auto) (0-100) /uL Sodium (137-145) mmol/L Potassium (3.4-5.1) mmol/L Chloride (98-107) mmol/L Carbon Dioxide (22-32) mmol/L BUN (7-17) mg/dL Creatinine (0.52-1.04) mg/dL Estimated GFR (>60) mL/min BUN/Creatinine Ratio (6-22) Glucose (80-110) mg/dL Lactate 0.7 (0.7-2.1) mmol/L Calcium (8.4-10.2) mg/dL Total Bilirubin (0.2-1.3) mg/dL AST (14-36) IU/L ALT (<35) IU/L Alkaline Phosphatase (38-126) U/L Total Protein (6.3-8.2) g/dL Albumin (3.5-5.0) g/dL Globulin (1.7-4.1) g/dL Albumin/Globulin Ratio (1.0-2.8) Lipase (23-300) U/L Procalcitonin (<0.5) ng/mL SARS-CoV-2 (PCR) (Negative) Imaging Data Chest x-ray: Radiologist's Impression: PROCEDURE:? XR CHEST 1V ? INDICATIONS:? suspected sepsis ? TECHNIQUE:? One view of the chest was acquired.? ? COMPARISON:? [facility], , XR CHEST 2V, 03/27/2020, 13:23. ? FINDINGS:? ? Surgical changes and devices:? Multiple surgical clips are stable. ? Lungs and pleura:? Bilateral patchy lung opacities.? No pleural effusions or pneumothorax.? ? Mediastinum:? Mediastinal contours appear normal.? Heart size is normal.? ? Bones and chest wall:? No suspicious bony lesions.? Overlying soft tissues appear unremarkable.? ? IMPRESSION:? Bilateral lung multilobar pneumonia. ? ? Dictated by: Alejandra Mcintosh MD, PhD on 12/21/2020 at 14:33 ? ? ECG Data Interpretation: Sinus rhythm rate 75 MD interval 156 QRS [address] changes MDM Narrative Medical decision making narrative: Patient has couple of tachypneic respiratory rate noted but when I evaluated her he is in no respiratory distress respiratory rate is 17-19 she is having slight crackles at her bases but no significant wheezing. She is afebrile without leukocytosis. Curb 65 is a score of 2. She is started on Levaquin for antibiotics. Discussed warning signs with both her and her have been and will return to the ED if needed. Sodium also noted to be 125 she could potentially return however is very limited bed status in this state, she overall appears well I think it is reasonable to try outpatient antibiotics return as needed. Discharge Plan Departure Patient Disposition: Home Clinical Impression: Pneumonia Instructions: DI for Pneumonia -- Adult Activity Restrictions/Additional Instructions: *You have been diagnosed with bilateral, hyponatremia *What to do: At this time monitor water intake had decreased slightly, please have a sodium recheck next week with primary care. *Continue to take medications as directed Levaquin 750 mg once a day for 7 day Tylenol as directed and needed for fever *Follow up with your primary care provider in 2-3 days *Return to ER if you should have increasing shortness of breath, and can confusion, weakness any new, worsening or concerning symptoms Prescriptions: No Action famotidine 20 mg tablet 20 mg feeding tube DAILY Qty: 90 RF: 3 imipramine HCl 50 mg tablet 50 mg feeding tube BEDTIME Qty: 90 RF: 3 levothyroxine 200 mcg tablet 225 mcg Feeding Tube DAILY Qty: 90 RF: 3 levothyroxine 25 mcg tablet 225 mcg PO DAILY Qty: 90 RF: 3 meclizine 25 mg tablet 25 mg Feeding Tube Q6H PRN (Reason: Dizziness) Qty: 240 RF: 3 nystatin 100,000 unit/gram cream 1 applic topical DAILY Qty: 30 RF: 11 nystatin 100,000 unit/mL suspension 5 ml PO BEDTIME Qty: 250 RF: 11 ondansetron 4 mg tablet,disintegrating 4 mg Feeding Tube TID PRN (Reason: Nausea) Qty: 270 RF: 3 silver nitrate applicators 75-25 % stick 1 applic TOP 2XW Qty: 100 RF: 11 sodium chloride 0.9 % (flush) Syringe 20 ml IV .COMPLEX PRN (Reason: IV line flush) Qty: 5400 RF: 3 (DME) DISABLED PARKING PERMIT See Rx Instructions .ROUTE .MEDSUPPLY Qty: 1 RF: 0 venlafaxine 75 mg tablet 75 mg feeding tube TID Qty: 270 RF: 3 Hold Instructions: Dose reduction to 150mg clonazepam 0.5 mg tablet,disintegrating 0.5 mg Feeding Tube TID Qty: 45 RF: 0 zolpidem [Ambien] 5 mg tablet 5 mg feeding tube BEDTIME PRN (Reason: Sleep) Qty: 10 RF: 0 cetirizine [Wal-Zyr (cetirizine)] 1 mg/mL solution 5 mg feeding tube Q12H PRN (Reason: Secretions) Qty: 960 RF: 3 clobetasol 0.05 % cream 1 applic topical DAILY Qty: 60 RF: 3 cyclobenzaprine 5 mg tablet 5 mg feeding tube TIDP PRN (Reason: muscle spasm) Qty: 270 RF: 3 ferrous sulfate 220 mg (44 mg iron)/5 mL elixir 330 mg feeding tube TID Qty: 2025 RF: 3 gabapentin 250 mg/5 mL solution 900 mg Feeding Tube BID Qty: 3240 RF: 11 guaifenesin 200 mg/5 mL liquid 200 mg PO BID Qty: 946 RF: 3 hydrocortisone 2.5 % cream 1 applic TOPICAL PRN PRN (Reason: Rash) Qty: 90 RF: 3 ipratropium bromide 42 mcg (0.06 %) spray,non-aerosol 2 spray INTRANASAL TID Qty: 90 RF: 3 metoprolol tartrate 25 mg tablet 37.5 mg PO BID Qty: 270 RF: 3 TobraDex 0.3-0.1 % ointment 1 applic .ROUTE .COMPLEX Qty: 10.5 RF: 3 diazepam 5 mg/mL concentrate 2.5 mg PO BID PRN (Reason: anxiety, muscle spasm) Qty: 30 RF: 5 acetaminophen 500 mg/15 mL liquid 1,000 mg PO Q6H PRN (Reason: Headache) RF: 0 ascorbic acid (vitamin C) 1,000 mg tablet 500 mg Feeding Tube DAILY RF: 0 ibuprofen [Children's Advil] 100 mg/5 mL suspension 400 mg Feeding Tube Q4H PRN (Reason: Headache) RF: 0 Promote with Fiber 0.06 gram-1 kcal/mL Liquid See Rx Instructions .ROUTE .COMPLEX RF: 0 glycerin (adult) Suppository 1 supp MD Q3D PRN (Reason: Constipation) RF: 0 Referrals: Armani Wilkins MD [Primary Care Provider] -
[2020-12-21 15:30] VITALS: BP 114/56; PULSE 75; RESP 19; O2SAT 99
[2020-12-21 16:00] VITALS: BP 138/62; PULSE 80; RESP 17; O2SAT 98
== END 2020-12-21 16:18 | disposition home or self-care (01) ==
PROVIDERS: Emergency Provider Emergency Medicine; Family Provider Student in an Organized Health Care Education/Training Program; PCP Student in an Organized Health Care Education/Training Program
DX: J18.9 Pneumonia, unspecified organism (principal); Z20.822 Contact with and (suspected) exposure to COVID-19
CPT/HCPCS: 36415; 71045; 80053; 83605; 83690; 84145; 85025; 87040; 87635; 93005; 99283; 99284; C9803

== ENCOUNTER 2021-01-15 09:54 | Emergency (ER) | payer MEDICARE, OTHER, MEDICAID, SELFPAY ==
[2020-03-26 17:32] VITALS: BMI 20.7
[2021-01-15] VITALS (15 sets, daily range): BP systolic 99–157; BP diastolic 53–99; PULSE 69–94; RESP 16–52; TEMP 36.4; O2SAT 96–100; BMI 17.8
--- NOTE | 2021-01-15 10:22 | ED_ITS ---
HPI - SOB/Dyspnea General Chief Complaint: Shortness of Breath/Dyspnea Stated Complaint: Pneumonia- wants her to get IVs Time Seen by Provider: 01/15/21 10:03 Source: patient and family Mode of arrival: Wheelchair Limitations: no limitations History of Present Illness HPI Narrative: 70F nonsmoker with chronic tracheostomy, peg tube secondary to thyroid cancer presents at the request of primary care provider for ongoing respiratory distress and yellow sputum production per the trach despite 2 weeks of outpatient treatment with Levaquin. She has had no reported fever or chills but is generally weak and not improving. She has been vaccinated against COVID. Related Data Home Medications Medication Instructions Recorded Confirmed ascorbic acid (vitamin C) 1,000 mg 500 mg FEEDING TUBE DAILY tab 01/06/18 01/01/21 tablet ibuprofen 100 mg/5 mL oral 400 mg FEEDING TUBE Q4H PRN ml 01/06/18 01/01/21 suspension (Children's Advil) glycerin (adult) 1 supp [place] Q3D PRN 01/05/19 01/01/21 nutritional supplement-fiber 0.06 See Rx Instructions .ROUTE .COMPLEX 01/05/19 01/01/21 gram-1 kcal/mL oral liquid (Promote with Fiber) acetaminophen 500 mg/15 mL oral 1,000 mg PO Q6H PRN ml 02/28/20 01/01/21 liquid levothyroxine 25 mcg tablet 50 mcg PO DAILY tab 01/01/21 Previous Rx's Medication Instructions Recorded famotidine 20 mg tablet 20 mg FEEDING TUBE DAILY #90 tab 05/02/20 imipramine HCl 50 mg tablet 50 mg FEEDING TUBE BEDTIME #90 tab 05/02/20 levothyroxine 200 mcg tablet 225 mcg FEEDING TUBE DAILY #90 tab 05/02/20 meclizine 25 mg tablet 25 mg FEEDING TUBE Q6H PRN #240 tab 05/02/20 nystatin 100,000 unit/gram topical 1 applic TOPICAL DAILY #30 g 05/02/20 cream nystatin 100,000 unit/mL oral 5 ml PO BEDTIME #250 ml 05/02/20 suspension ondansetron 4 mg disintegrating 4 mg FEEDING TUBE TID PRN #270 tab 05/02/20 tablet silver nitrate applicators 75 %-25 1 applic TOP 2XW #100 each 05/02/20 % topical stick sodium chloride 0.9 % (flush) 20 ml IV .COMPLEX PRN #5400 ml 08/02/20 diazepam 5 mg/mL oral concentrate 2.5 mg PO BID PRN #30 ml 08/13/20 DISABLED PARKING PERMIT #1 ea 09/10/20 venlafaxine 75 mg tablet 75 mg FEEDING TUBE TID #270 tab 10/26/20 clonazepam 0.5 mg disintegrating 0.5 mg FEEDING TUBE TID #45 tab 11/08/20 tablet cetirizine 1 mg/mL oral solution 5 mg FEEDING TUBE Q12H PRN #960 ml 12/18/20 (Wal-Zyr (cetirizine)) clobetasol 0.05 % topical cream 1 applic TOPICAL DAILY #60 g 12/18/20 cyclobenzaprine 5 mg tablet 5 mg FEEDING TUBE TIDP PRN #270 tab 12/18/20 ferrous sulfate 220 mg (44 mg 330 mg FEEDING TUBE TID #2025 ml 12/18/20 iron)/5 mL oral elixir gabapentin 250 mg/5 mL oral 900 mg FEEDING TUBE BID #3240 ml 12/18/20 solution guaifenesin 200 mg/5 mL oral liquid 200 mg PO BID #946 ml 12/18/20 hydrocortisone 2.5 % topical cream 1 applic TOPICAL PRN PRN #90 g 12/18/20 ipratropium bromide 42 mcg (0.06 2 spray INTRANASAL TID #90 ml 12/18/20 %) nasal spray metoprolol tartrate 25 mg tablet 37.5 mg PO BID #270 tab 12/18/20 tobramycin-dexamethasone 0.3 %-0.1 1 applic .ROUTE .COMPLEX #10.5 g 12/18/20 % eye ointment (TobraDex) nebulizers (Innospire Go Nebulizer) #1 ea 12/31/20 Allergies Allergy/AdvReac Type Severity Reaction Status Date / Time amoxicillin [From Augmentin] Allergy Intermediate Severe Verified 01/15/21 10:13 Diarrhea cat dander Allergy Intermediate Verified 01/15/21 10:13 clavulanic acid Allergy Intermediate Severe Verified 01/15/21 10:13 [From Augmentin] Diarrhea Sulfa (Sulfonamide Allergy Unknown Verified 01/15/21 10:13 Antibiotics) Review of Systems Review of Systems Narrative: GENERAL: Denies chills, fatigue, malaise, fever, sweats. HEENT: Denies sinus pain, ear pain, sore throat, difficulty swallowing, dizziness. RESPIRATORY: See HPI. CARDIOVASCULAR: Denies chest pain, palpitations, orthopnea, edema, GASTROINTESTINAL: Denies nausea, vomiting, abdominal pain, diarrhea, constipation, melena. : Denies dysuria, frequency, incontinence, hematuria, urinary retention. MUSCULOSKELETAL: denies weakness, joint pain, or bony pain SKIN: Denies rash, skin lesions, or other NEUROLOGIC: Denies weakness, headache, numbness, change in speech, confusion, seizures, incoordination. PSYCHIATRIC: No concerning psychosocial issues. 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) History of radiation therapy (~1992) Horners syndrome (~2010) Hypothyroid Kidney disease (~1974) Measles (~1952) Migraines MRSA (methicillin resistant Staphylococcus aureus) (~2015) Mumps (~1956) Peripheral neuropathy (~2010) Pituitary adenoma Rubella (~1959) Seizures (~1958) Thyroid cancer (~1969) Vocal cord paralysis (~2010) Surgical History Anesthesia History of foot surgery (~2013) History of neck surgery (~2009) History of surgery (~2010) History of thyroid surgery (~1982) History of thyroidectomy (~1969) Family History Father Cancer Diabetes mellitus History of heart disease Hyperlipidemia Hypertension Polycythemia vera Mother High cholesterol History of heart disease Sister Age: 75 High cholesterol Sister High cholesterol Mental health problem Sister Asthma Grandmother Parkinson's disease Grandfather Cancer Social History household members: spouse Smoking Status: Never smoker Smoking Status: Never smoker alcohol intake frequency: holidays/special occasions only Substance Use Type: does not use Exam Narrative Exam Narrative: GENERAL: [70 year old patient appears stated age. Chronically ill, thin, no obvious respiratory distress, no need for supplemental oxygen HEAD: Atraumatic. Normocephalic. EYES: Pupils equal round and reactive. Extraocular motions intact. No scleral icterus. No injection or drainage. ENT: Nose without bleeding, purulent drainage. Throat without erythema, ton sillar hypertrophy or exudate. Airway patent. NECK: Trachea midline. Non tender CARDIOVASCULAR: Regular rate and rhythm without murmurs, gallops, or rubs. RESPIRATORY: Faint crackles in left base with decreased sounds in left base. No sign of respiratory distress, no need for supplemental oxygen GASTROINTESTINAL: Abdomen soft, non-tender, nondistended. EXTREMITIES: No edema or joint tenderness. BACK: Nontender without deformity or crepitance. No flank tenderness. NEURO: AOx3. SKIN: No rash or erythema of visible areas Initial Vital Signs Initial Vital Signs: Vital Signs Temperature 97.6 F 01/15/21 10:05 Pulse Rate 78 01/15/21 10:05 Respiratory Rate 16 01/15/21 10:05 Blood Pressure 138/67 01/15/21 10:05 Pulse Oximetry 98 01/15/21 10:05 Course Orders Ordered: ED Orders 01/15/21 10:20 Complete Blood Count AUTO DIFF Stat Comprehensive Metabolic Panel Stat Lactate (Lactic Acid) Stat 01/15/21 10:28 XR chest 2V Stat EKG-12 Lead Stat Measure peak expiratory flow ONCE RT Consult Eval and Treat Now 01/15/21 10:50 Sputum Culture Stat 01/15/21 11:03 Blood Culture Stat 01/15/21 11:29 CT chest w con Stat Consultations Consultation #1: Discussed with on-call Oncology at [facility], no need for transfer or immediate intervention. Patient will need tissue diagnosis to move forward, OK for DC, team will reach out and setup outpatient evaluation Consultation #2: findings relayed to patient PCP (Dr. Wilkins) Vital Signs Vital signs: Vital Signs - 8 hr 01/15/21 12:19 01/15/21 12:30 01/15/21 12:31 Pulse Rate 70 69 69 Respiratory Rate 25 H 26 H 26 H Blood Pressure 107/53 L Pulse Oximetry 99 99 100 01/15/21 13:00 01/15/21 13:14 01/15/21 13:30 Pulse Rate 72 76 72 Respiratory Rate 52 H 41 H 47 H Blood Pressure 99/57 L 131/66 Pulse Oximetry 99 99 100 01/15/21 13:31 01/15/21 14:00 01/15/21 14:30 Pulse Rate 74 72 79 Respiratory Rate 37 H 24 42 H Blood Pressure 145/69 H 133/68 148/73 H Pulse Oximetry 100 100 96 01/15/21 15:00 01/15/21 15:01 01/15/21 15:30 Pulse Rate 78 78 94 H Respiratory Rate 51 H 47 H 24 Blood Pressure 154/69 H 157/99 H Pulse Oximetry 99 100 96 01/15/21 16:00 01/15/21 16:30 Pulse Rate 93 H 87 Respiratory Rate 24 24 Blood Pressure 135/72 149/74 H Pulse Oximetry 100 98 MDM - SOB/Dyspnea Lab Data Result diagrams: 01/15/21 10:20 01/15/21 10:20 Labs: Lab Results 01/15/21 01/15/21 01/15/21 Range/Units 10:20 10:20 10:20 WBC 8.3 (4.5-11.0) X10^3/uL RBC 4.04 (4.0-5.2) X10^6/uL Hgb 12.6 (12.0-16.0) g/dL Hct 37.2 (36-46) % MCV 92.0 (80-100) fL MCH 31.1 (26-34) PG MCHC 33.9 (30-36) % RDW 13.4 (11.6-14.8) % Plt Count 336 (150-400) X10^3/uL Neut % (Auto) 85.2 H (50-75) % Lymph % (Auto) 4.3 L (25-40) % Butler % (Auto) 7.9 (3-14) % Eos % (Auto) 1.7 L (2-4) % Baso % (Auto) 0.9 (0-2) % Neut # (Auto) 7000 (1051-8943) /uL Lymph # (Auto) 400 L (1213-9126) /uL Butler # (Auto) 700 (0-900) /uL Eos # (Auto) 100 (0-450) /uL Baso # (Auto) 100 (0-100) /uL Sodium 134 L (137-145) mmol/L Potassium 4.3 (3.4-5.1) mmol/L Chloride 94 L (98-107) mmol/L Carbon Dioxide 34 H (22-32) mmol/L BUN 33 H (7-17) mg/dL Creatinine 0.90 (0.52-1.04) mg/dL Estimated GFR > 60.0 (>60) mL/min BUN/Creatinine Ratio 36.7 H (6-22) Glucose 88 (80-110) mg/dL Lactate 1.0 (0.7-2.1) mmol/L Calcium 8.4 (8.4-10.2) mg/dL Total Bilirubin 0.3 (0.2-1.3) mg/dL AST 23 (14-36) IU/L ALT 10 (<35) IU/L Alkaline Phosphatase 107 (38-126) U/L Total Protein 8.2 (6.3-8.2) g/dL Albumin 4.3 (3.5-5.0) g/dL Globulin 3.9 (1.7-4.1) g/dL Albumin/Globulin Ratio 1.1 (1.0-2.8) Imaging Data CT scan - chest: Radiologist's Impression: Launch?[place] [address] CT Scan Report Signed Patient: Aimee Day MR#: [id number] : 1950 Acct:[id number] Age/Sex: 70 / F Date of Service: 01/15/21 Loc: ED Accession Number: [id number] ?? Procedure: CT chest w con Ordering Provider: Galindo Mendoza D.O. PROCEDURE:? CT CHEST W CON ? INDICATIONS:? cough, short of breath, left pleural effusion ? TECHNIQUE:? After the administration of intravenous contrast, 5 mm thick sections acquired from the pulmonary apices to the posterior costophrenic angles.? 1 mm axial lung, 5 mm thick coronal and sagittal reformats and 7 mm axial MIP were acquired.? For radiation dose reduction, the following was used:? automated exposure control, adjustment of mA and/or kV according to patient size.? ? COMPARISON:? [facility], CT, CT SOFT TISSUE NECK WITH CONTRAST, 11/16/2018, 13:40. ? FINDINGS:? Image quality:? Excellent.? ? Lungs and pleura:? There is an enhancing left lower lobe mass which extends into the pleura and chest wall.? The mass measures approximately 2.4 x 4.3 cm maximum axial dimension on series 2, image 43. The mass extends to the cortex of the left 9th rib with a small focus of suspected cortical erosion on series 2, image 40. A satellite nodule is present in the left lower lobe measuring 1.2 cm on series 2, image 41. There is a small left pleural effusion with significant intra-fissural component.? ? Mediastinum:? Heart size is normal.? No pericardial effusion.? No mediastinal or hilar adenopathy by size criteria.? Thoracic aorta and central pulmonary arteries are normal in size.? Esophagus is normal in caliber.? No hiatal hernia.? ? Bones and chest wall:? Erosive lesion of the left 9th rib adjacent to the enhancing mass. ?No additional suspicious bone lesion.? Thoracic vertebral body height and alignment are normal. ? Abdomen:? Visualized upper abdominal solid organs appear normal.? Upper abdominal bowel loops are normal in caliber.? ? IMPRESSION:? Enhancing left lower lobe mass with extension into the pleura and chest wall, with an adjacent left lower lobe satellite nodule.? These findings are presumably malignant, although potentially in infectious or inflammatory process could create a similar appearance. Tissue sampling recommended.? ? ? Dictated by: Mich Bhatt M.D. on 01/15/2021 at 12:12 ? ? Approved by: Mich Bhatt M.D. on 01/15/2021 at 12:19 ? MDM Narrative Medical decision making narrative: patient with ongoing cough and sputum production, no significant work of breathing or need for supplemental oxygen. She does have the development of a small left-sided pleural effusion but not 1 that would need emergent thoracentesis. I have been in contact with patient's PCP as well as oncology team and they will work together to get outpatient evaluation including tissue diagnosis. Patient given extensive return precautio ns questions have been answered to her apparent satisfaction Discharge Plan Departure Patient Disposition: Home Clinical Impression: Pleural effusion, Lung mass Instructions: Pleural Effusion, DI for Lung Cancer Activity Restrictions/Additional Instructions: *You have been diagnosed with [small left-sided pleural effusion with underlying lung mass measuring 2 x 4 cm which is very concerning for lung cancer. There is very reassuring vital signs and lab work and no indication the hospitaliza tion or transfer is needed. *What to do: *Please continue to take your regular medications as directed. [ ] New medication prescriptions sent to your pharmacy: [ ] [ ] New medication written as a paper prescription [x ] No new medications given *Please follow up with your primary care provider in 2-3 days, call for an appointment. Let them know you were seen in the Emergency Department and that we ask that you be seen in follow up. We will electronically transmit a record of today's note if your PCP is in our system * as we discussed, I talked with the [facility] and they are aware of the circumstances. They will reach out to you to schedule follow-up as you will likely need a biopsy and tissue diagnosis *Return to Emergency Department if you should have any new, worsening or concerning symptoms, such as [fever greater than 101 F, shaking chills, worsening pain, worsening shortness of breath or other bothersome symptoms Prescriptions: No Action famotidine 20 mg tablet 20 mg feeding tube DAILY Qty: 90 RF: 3 imipramine HCl 50 mg tablet 50 mg feeding tube BEDTIME Qty: 90 RF: 3 levothyroxine 200 mcg tablet 225 mcg Feeding Tube DAILY Qty: 90 RF: 3 meclizine 25 mg tablet 25 mg Feeding Tube Q6H PRN (Reason: Dizziness) Qty: 240 RF: 3 nystatin 100,000 unit/gram cream 1 applic topical DAILY Qty: 30 RF: 11 nystatin 100,000 unit/mL suspension 5 ml PO BEDTIME Qty: 250 RF: 11 ondansetron 4 mg tablet,disintegrating 4 mg Feeding Tube TID PRN (Reason: Nausea) Qty: 270 RF: 3 silver nitrate applicators 75-25 % stick 1 applic TOP 2XW Qty: 100 RF: 11 sodium chloride 0.9 % (flush) Syringe 20 ml IV .COMPLEX PRN (Reason: IV line flush) Qty: 5400 RF: 3 (DME) DISABLED PARKING PERMIT See Rx Instructions .ROUTE .MEDSUPPLY Qty: 1 RF: 0 venlafaxine 75 mg tablet 75 mg feeding tube TID Qty: 270 RF: 3 Hold Instructions: Dose reduction to 150mg clonazepam 0.5 mg tablet,disintegrating 0.5 mg Feeding Tube TID Qty: 45 RF: 0 cetirizine [Wal-Zyr (cetirizine)] 1 mg/mL solution 5 mg feeding tube Q12H PRN (Reason: Secretions) Qty: 960 RF: 3 clobetasol 0.05 % cream 1 applic topical DAILY Qty: 60 RF: 3 cyclobenzaprine 5 mg tablet 5 mg feeding tube TIDP PRN (Reason: muscle spasm) Qty: 270 RF: 3 ferrous sulfate 220 mg (44 mg iron)/5 mL elixir 330 mg feeding tube TID Qty: 2025 RF: 3 gabapentin 250 mg/5 mL solution 900 mg Feeding Tube BID Qty: 3240 RF: 11 guaifenesin 200 mg/5 mL liquid 200 mg PO BID Qty: 946 RF: 3 hydrocortisone 2.5 % cream 1 applic TOPICAL PRN PRN (Reason: Rash) Qty: 90 RF: 3 ipratropium bromide 42 mcg (0.06 %) spray,non-aerosol 2 spray INTRANASAL TID Qty: 90 RF: 3 metoprolol tartrate 25 mg tablet 37.5 mg PO BID Qty: 270 RF: 3 TobraDex 0.3-0.1 % ointment 1 applic .ROUTE .COMPLEX Qty: 10.5 RF: 3 (DME) Innospire Go Nebulizer Misc See Rx Instructions .Route Qty: 1 RF: 0 diazepam 5 mg/mL concentrate 2.5 mg PO BID PRN (Reason: anxiety, muscle spasm) Qty: 30 RF: 5 levothyroxine 25 mcg tablet 50 mcg PO DAILY RF: 0 acetaminophen 500 mg/15 mL liquid 1,000 mg PO Q6H PRN (Reason: Headache) RF: 0 ascorbic acid (vitamin C) 1,000 mg tablet 500 mg Feeding Tube DAILY RF: 0 ibuprofen [Children's Advil] 100 mg/5 mL suspension 400 mg Feeding Tube Q4H PRN (Reason: Headache) RF: 0 Promote with Fiber 0.06 gram-1 kcal/mL Liquid See Rx Instructions .ROUTE .COMPLEX RF: 0 glycerin (adult) Suppository 1 supp [place] Q3D PRN (Reason: Constipation) RF: 0 Referrals: Armani Wilkins MD [Primary Care Provider] -
--- NOTE | 2021-01-15 10:28 | DI.RAD.S_ITS ---
PROCEDURE: XR CHEST 2V INDICATIONS: shortness of breath TECHNIQUE: 2 views of the chest were acquired. COMPARISON: [facility], CR, XR CHEST 2V, 02/21/2020, 13:19. [facility], CR, XR CHEST 2V, 03/27/2020, 13:23. [facility], CR, XR CHEST 1V, 12/21/2020, 14:21. FINDINGS: Surgical changes and devices: Bilateral upper chest clips are seen. A gastrostomy tube is seen. Lungs and pleura: There is a left-sided pleural effusion. Likely fluid can be seen along the left oblique fissure. There is no pneumothorax. No definite right-sided pleural effusion is seen. Mild generalized interstitial prominence can be seen. Mediastinum: Mediastinal contours are normal. Heart size is normal. Bones and chest wall: No suspicious bony abnormalities. Age-appropriate bony degenerative changes are seen. Soft tissues appear unremarkable. IMPRESSION: Left-sided pleural effusion, with likely fluid along the left oblique fissure. Interstitial prominence is seen throughout. The interstitial prominence is nonspecific, yet may be related to pulmonary edema. Please consider atypical infection, including COVID pneumonia. If it would be helpful for clinical management decision making, please consider a dedicated chest CT. Postoperative and degenerative changes are seen. Dictated by: Yosef Mckeon M.D. on 01/15/2021 at 9:48 Approved by: Yosef Mckeon M.D. on 01/15/2021 at 9:50
[2021-01-15 11:10] LABS: Add Manual Diff / Slide Review NO; Basophils Absolute Auto 100 /uL (0-100); Basophils Percent Auto 0.9 % (0-2); Eosinophils Absolute Auto 100 /uL (0-450); Eosinophils Percent Auto 1.7 % (2-4); Hematocrit 37.2 % (36-46); Hemoglobin 12.6 g/dL (12.0-16.0); Lymphocytes Absolute Auto 400 /uL (1100-4500); Lymphocytes Percent Auto 4.3 % (25-40); Mean Corpuscular HGB Conc 33.9 % (30-36); Mean Corpuscular Hemoglobin 31.1 PG (26-34); Monocytes Absolute Auto 700 /uL (0-900); Monocytes Percent Auto 7.9 % (3-14); Neutrophils Absolute Auto 7000 /uL (1500-7000); Neutrophils Percent Auto 85.2 % (50-75); Platelet Count 336 X10^3/uL (150-400); Red Blood Cell Count 4.04 X10^6/uL (4.0-5.2); Red Cell Distribution Width 13.4 % (11.6-14.8); White Blood Cell Count 8.3 X10^3/uL (4.5-11.0)
[2021-01-15 11:25] LABS: Alanine Aminotransferase 10 IU/L (<35); Albumin 4.3 g/dL (3.5-5.0); Albumin Globulin Ratio 1.1 (1.0-2.8); Alkaline Phosphatase 107 U/L (38-126); Aspartate Aminotransferase 23 IU/L (14-36); BUN Creatinine Ratio 36.7 (6-22); Bilirubin Total 0.3 mg/dL (0.2-1.3); Blood Urea Nitrogen 33 mg/dL (7-17); Calcium 8.4 mg/dL (8.4-10.2); Carbon Dioxide 34 mmol/L (22-32); Chloride 94 mmol/L (98-107); Estimated Glomerular Filt Rate > 60.0 mL/min (>60); Globulin 3.9 g/dL (1.7-4.1); Glucose 88 mg/dL (80-110); HEMOLYSIS < 15 (0-50); Potassium 4.3 mmol/L (3.4-5.1); Sodium 134 mmol/L (137-145); Total Protein 8.2 g/dL (6.3-8.2)
--- NOTE | 2021-01-15 11:29 | DI.CT.S_ITS ---
PROCEDURE: CT CHEST W CON INDICATIONS: cough, short of breath, left pleural effusion TECHNIQUE: After the administration of intravenous contrast, 5 mm thick sections acquired from the pulmonary apices to the posterior costophrenic angles. 1 mm axial lung, 5 mm thick coronal and sagittal reformats and 7 mm axial MIP were acquired. For radiation dose reduction, the following was used: automated exposure control, adjustment of mA and/or kV according to patient size. COMPARISON: [facility], CT, CT SOFT TISSUE NECK WITH CONTRAST, 11/16/2018, 13:40. FINDINGS: Image quality: Excellent. Lungs and pleura: There is an enhancing left lower lobe mass which extends into the pleura and chest wall. The mass measures approximately 2.4 x 4.3 cm maximum axial dimension on series 2, image 43. The mass extends to the cortex of the left 9th rib with a small focus of suspected cortical erosion on series 2, image 40. A satellite nodule is present in the left lower lobe measuring 1.2 cm on series 2, image 41. There is a small left pleural effusion with significant intra-fissural component. Mediastinum: Heart size is normal. No pericardial effusion. No mediastinal or hilar adenopathy by size criteria. Thoracic aorta and central pulmonary arteries are normal in size. Esophagus is normal in caliber. No hiatal hernia. Bones and chest wall: Erosive lesion of the left 9th rib adjacent to the enhancing mass. No additional suspicious bone lesion. Thoracic vertebral body height and alignment are normal. Abdomen: Visualized upper abdominal solid organs appear normal. Upper abdominal bowel loops are normal in caliber. IMPRESSION: Enhancing left lower lobe mass with extension into the pleura and chest wall, with an adjacent left lower lobe satellite nodule. These findings are presumably malignant, although potentially in infectious or inflammatory process could create a similar appearance. Tissue sampling recommended. Dictated by: Mich Bhatt M.D. on 01/15/2021 at 12:12 Approved by: Mich Bhatt M.D. on 01/15/2021 at 12:19
== END 2021-01-15 16:49 | disposition home or self-care (01) ==
PROVIDERS: Emergency Provider Emergency Medicine; Family Provider Student in an Organized Health Care Education/Training Program; PCP Student in an Organized Health Care Education/Training Program
DX: J90 Pleural effusion, not elsewhere classified (principal); R91.8 Other nonspecific abnormal finding of lung field; R05 Cough
CPT/HCPCS: 36415; 71046; 71260; 80053; 83605; 85025; 87040; 87070; 87077; 87147; 87186; 87205; 99284

== ENCOUNTER 2021-01-18 03:13 | Emergency (ER) | payer MEDICARE, OTHER, MEDICAID, SELFPAY ==
[2020-03-26 17:32] VITALS: BMI 20.7
[2021-01-18] VITALS (8 sets, daily range): BP systolic 147–175; BP diastolic 65–75; PULSE 64–87; RESP 18; TEMP 36.6; O2SAT 98–100; BMI 17.8
--- NOTE | 2021-01-18 03:22 | DI.CT.S_ITS ---
PROCEDURE: CT CERVICAL SPINE WO CON INDICATIONS: Fall with midline neck pain TECHNIQUE: Noncontrast 3 mm thick sections acquired from the skull base to the T4 level. Sagittal and coronal reformats were then constructed. For radiation dose reduction, the following was used: automated exposure control, adjustment of mA and/or kV according to patient size. COMPARISON: None. FINDINGS: Image quality: Excellent. Bones: No fractures or dislocations. Visualized superior ribs are intact. Spine degenerative disc disease and facet arthropathy. Soft tissues: Prevertebral soft tissues are normal in thickness. No paravertebral hematomas. No apical pneumothoraces. Tracheostomy tube. Loculated left-sided pleural effusion. Small bicep pleural effusion. IMPRESSION: 1. No fracture. No acute osseous lesion. If symptoms and/or clinical suspicion for pathology persists, evaluation with MRI should be considered for further assessment. 2. Bilateral pleural effusions. Dictated by: Alejandra Mcintosh MD, PhD on 01/18/2021 at 8:02 Approved by: Alejandra Mcintosh MD, PhD on 01/18/2021 at 8:04
--- NOTE | 2021-01-18 03:22 | DI.CT.S_ITS ---
PROCEDURE: CT HEAD/BRAIN WO CON INDICATIONS: Fall with forehead laceration TECHNIQUE: Noncontrast 4.5 mm thick angled axial sections acquired from the foramen magnum to the vertex, with coronal and sagittal reformats. For radiation dose reduction, the following was used: automated exposure control, adjustment of mA and/or kV according to patient size. COMPARISON: None. FINDINGS: Image quality: Degraded by beam hardening artifact related to metallic foreign bodies adjacent to patient's head during image acquisition. CSF spaces: Basal cisterns are patent. No extra-axial fluid collections. The ventricles are symmetric in size and shape. Brain: No intracranial bleeds or masses. There is cerebral volume loss for age, with resultant ventricular and sulcal prominence. There are periventricular and deep white matter chronic small vessel ischemic changes. There is intracranial internal carotid artery atherosclerosis. Skull and face: Calvarium and visualized facial bones appear intact, without suspicious lesions. Left facial/periorbital soft tissue swelling. Sinuses: Visualized sinuses and mastoids are clear. IMPRESSION: No acute intracranial disease process within limitations of the study. Dictated by: Alejandra Mcintosh MD, PhD on 01/18/2021 at 7:35 Approved by: Alejandra Mcintosh MD, PhD on 01/18/2021 at 7:37
--- NOTE | 2021-01-18 03:26 | DI.CT.S_ITS ---
PROCEDURE: CT FACIAL BONES WO CON INDICATIONS: fall with swelling around Left eye TECHNIQUE: Noncontrast 2.5 mm thick axial images acquired from the mandible through the frontal sinuses, with coronal and sagittal reformatting. For radiation dose reduction, the following was used: automated exposure control, adjustment of mA and/or kV according to patient size. COMPARISON: None. FINDINGS: Image quality: Excellent. Bones and teeth: Orbital mcdaniel are intact. Sinus mcdaniel show no fracture or deformity. Nasal bones and septum are intact. Visualized portions of the mandible demonstrate no fractures or subluxation. Zygomatic arches are intact. Pterygoid plates are intact. Visualized portions of the skull base and auditory canals are intact. 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 Sinuses: Postsurgical changes compatible with prior functional endoscopic sinus surgery. Mastoid air cells are aerated. Soft tissues: Left malar eminence/periorbital soft tissue contusion. No enlarged lymph nodes. No soft tissue lacerations or debris. Vascular: Visualized vascular structures appear normal in the absence of contrast. Bony vascular foramina and canals are intact. IMPRESSION: No fracture. Dictated by: Alejandra Mcintosh MD, PhD on 01/18/2021 at 8:05 Approved by: Alejandra Mcintosh MD, PhD on 01/18/2021 at 8:07
--- NOTE | 2021-01-18 03:27 | ED.GENADULT ---
HPI - General Adult General Chief complaint: Fall Stated complaint: GLF Time Seen by Provider: 01/18/21 03:21 Source: patient, family and EMS Mode of arrival: EMS History of Present Illness HPI narrative: Patient is a 70-year-old female who is here for evaluation of injuries that she sustained when she fell forward hitting her head on the ground. She is not on anticoagulation. There was no loss of consciousness. She did trip forward landing on the ground. She did sustain a cut to the forehead. Also has bruising under the left eye. Initially did not complain of neck pain however developed a discomfort in route and so she was placed in a cervical collar no complaints of upper lower extremity discomfort. Related Data Home Medications Medication Instructions Recorded Confirmed ascorbic acid (vitamin C) 1,000 mg 500 mg FEEDING TUBE DAILY tab 01/06/18 01/01/21 tablet ibuprofen 100 mg/5 mL oral 400 mg FEEDING TUBE Q4H PRN ml 01/06/18 01/01/21 suspension (Children's Advil) glycerin (adult) 1 supp NV Q3D PRN 01/05/19 01/01/21 nutritional supplement-fiber 0.06 See Rx Instructions .ROUTE .COMPLEX 01/05/19 01/01/21 gram-1 kcal/mL oral liquid (Promote with Fiber) acetaminophen 500 mg/15 mL oral 1,000 mg PO Q6H PRN ml 02/28/20 01/01/21 liquid levothyroxine 25 mcg tablet 50 mcg PO DAILY tab 01/01/21 Previous Rx's Medication Instructions Recorded famotidine 20 mg tablet 20 mg FEEDING TUBE DAILY #90 tab 05/02/20 imipramine HCl 50 mg tablet 50 mg FEEDING TUBE BEDTIME #90 tab 05/02/20 levothyroxine 200 mcg tablet 225 mcg FEEDING TUBE DAILY #90 tab 05/02/20 meclizine 25 mg tablet 25 mg FEEDING TUBE Q6H PRN #240 tab 05/02/20 nystatin 100,000 unit/gram topical 1 applic TOPICAL DAILY #30 g 05/02/20 cream nystatin 100,000 unit/mL oral 5 ml PO BEDTIME #250 ml 05/02/20 suspension ondansetron 4 mg disintegrating 4 mg FEEDING TUBE TID PRN #270 tab 05/02/20 tablet silver nitrate applicators 75 %-25 1 applic TOP 2XW #100 each 05/02/20 % topical stick sodium chloride 0.9 % (flush) 20 ml IV .COMPLEX PRN #5400 ml 08/02/20 diazepam 5 mg/mL oral concentrate 2.5 mg PO BID PRN #30 ml 08/13/20 DISABLED PARKING PERMIT #1 ea 09/10/20 venlafaxine 75 mg tablet 75 mg FEEDING TUBE TID #270 tab 10/26/20 clonazepam 0.5 mg disintegrating 0.5 mg FEEDING TUBE TID #45 tab 11/08/20 tablet cetirizine 1 mg/mL oral solution 5 mg FEEDING TUBE Q12H PRN #960 ml 12/18/20 (Wal-Zyr (cetirizine)) clobetasol 0.05 % topical cream 1 applic TOPICAL DAILY #60 g 12/18/20 cyclobenzaprine 5 mg tablet 5 mg FEEDING TUBE TIDP PRN #270 tab 12/18/20 ferrous sulfate 220 mg (44 mg 330 mg FEEDING TUBE TID #2025 ml 12/18/20 iron)/5 mL oral elixir gabapentin 250 mg/5 mL oral 900 mg FEEDING TUBE BID #3240 ml 12/18/20 solution guaifenesin 200 mg/5 mL oral liquid 200 mg PO BID #946 ml 12/18/20 hydrocortisone 2.5 % topical cream 1 applic TOPICAL PRN PRN #90 g 12/18/20 ipratropium bromide 42 mcg (0.06 2 spray INTRANASAL TID #90 ml 12/18/20 %) nasal spray metoprolol tartrate 25 mg tablet 37.5 mg PO BID #270 tab 12/18/20 tobramycin-dexamethasone 0.3 %-0.1 1 applic .ROUTE .COMPLEX #10.5 g 12/18/20 % eye ointment (TobraDex) nebulizers (Innospire Go Nebulizer) #1 ea 12/31/20 Allergies Allergy/AdvReac Type Severity Reaction Status Date / Time amoxicillin [From Augmentin] Allergy Intermediate Severe Verified 01/15/21 10:13 Diarrhea cat dander Allergy Intermediate Verified 01/15/21 10:13 clavulanic acid Allergy Intermediate Severe Verified 01/15/21 10:13 [From Augmentin] Diarrhea Sulfa (Sulfonamide Allergy Unknown Verified 01/15/21 10:13 Antibiotics) Review of Systems Constitutional Constitutional: Reports as per HPI and Reports system reviewed and no additional complaints, except as documented Eyes Eyes: Reports system reviewed and no additional complaints, except as documented Cardiovascular Cardiovascular: Reports as per HPI and Reports system reviewed and no additional complaints, except as documented Respiratory Respiratory: Reports as per HPI and Reports system reviewed and no additional complaints, except as documented Gastrointestinal Gastrointestinal: Reports system reviewed and no additional complaints, except as documented Musculoskeletal Musculoskeletal: Reports system reviewed and no additional complaints, except as documented Integumentary/Breasts Skin/Breast: Reports system reviewed and no additional complaints, except as documented and Reports as per HPI Neurologic Neurologic: Reports system reviewed and no additional complaints, except as documented and Reports as per HPI Hematologic/Lymphatic On Anticoagulants: No 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) History of radiation therapy (~1992) Horners syndrome (~2010) Hypothyroid Kidney disease (~1974) Measles (~1952) Migraines MRSA (methicillin resistant Staphylococcus aureus) (~2015) Mumps (~1956) Peripheral neuropathy (~2010) Pituitary adenoma Rubella (~1959) Seizures (~1958) Thyroid cancer (~1969) Vocal cord paralysis (~2010) Surgical History Anesthesia History of foot surgery (~2013) History of neck surgery (~2009) History of surgery (~2010) History of thyroid surgery (~1982) History of thyroidectomy (~1969) Family History Father Cancer Diabetes mellitus History of heart disease Hyperlipidemia Hypertension Polycythemia vera Mother High cholesterol History of heart disease Sister Age: 75 High cholesterol Sister High cholesterol Mental health problem Sister Asthma Grandmother Parkinson's disease Grandfather Cancer Social History household members: spouse Smoking Status: Never smoker Smoking Status: Never smoker alcohol intake frequency: holidays/special occasions only Substance Use Type: does not use Exam Initial Vital Signs Initial Vital Signs: Vital Signs Temperature 97.8 F 01/18/21 03:15 Pulse Rate 87 01/18/21 03:15 Respiratory Rate 18 01/18/21 03:15 Blood Pressure 147/65 H 01/18/21 03:15 Pulse Oximetry 100 01/18/21 03:15 Const General: cooperative and comfortable HENUT Head: laceration Eyes Other: Bruising under left eye Neck Other: Tracheostomy in place Chest Chest: normal inspection of the chest Resp Effort & Inspection: normal respiratory effort Auscultation: clear to auscultation bilaterally Cardio Rate: regular rate Rhythm: regular rhythm GI Inspection: normal to inspection Palpation: soft Skin Other: Patient with a 4 cm laceration to the left side of the forehead. No active bleeding. Is irregular. Neuro General: patient alert, patient awake and moves all extremities Extrem Other: Patient does not seem to have any discomfort with movement of her upper extremities. Pelvis is stable. Has some tenderness with palpation of the right lower extremity this is not new for her. Psych Appearance: grossly normal and well kempt Procedures Laceration Repair Laceration 1: Site: face (For an) Side (If applicable): left Size (cm): 4 Description: stellate and irregular Depth: simple, single layer Local Anesthetic: lidocaine 1% and with bicarb Amount of anesthesia used (mL): 6 Pre-repair: wound explored and deep structures intact Skin layer closed with: nylon Size (cm): 4-0 Number of sutures: 8 Technique: simple, interrupted Course Orders Ordered: ED Orders 01/18/21 03:22 CT cervical spine wo con Stat CT head/brain wo con Stat 01/18/21 03:26 CT facial bones wo con Stat Discontinued Medications Acetaminophen (Acetaminophen 325 Mg Tablet) 650 mg PO NOW ONE Stop: 01/18/21 05:07 Last Admin: 01/18/21 05:09 Dose: 650 mg Documented by: HOLLAND Lidocaine/Sodium Bicarbonate (Lido 1%/Sod Bicarb 8.4% (10ml) 10 Ml Syringe) 10 ml INJ NOW ONE Stop: 01/18/21 03:22 Last Admin: 01/18/21 03:50 Dose: 10 ml Documented by: HOLLAND Vital Signs Vital signs: Vital Signs - 8 hr 01/18/21 03:15 01/18/21 03:17 01/18/21 03:18 Temperature 97.8 F Pulse Rate 87 66 66 Respiratory Rate 18 Blood Pressure 147/65 H 147/65 H Pulse Oximetry 100 99 99 01/18/21 03:38 01/18/21 04:00 01/18/21 04:13 Temperature Pulse Rate 64 68 69 Respiratory Rate Blood Pressure 175/70 H Pulse Oximetry 100 99 99 Medical Decision Making Imaging Data CT scan - head: Radiologist's Impression: No acute intracranial findings. Left periorbital when mild forehead soft tissue swelling CT - cervical spine: Radiologist's Impression: Postsurgical changes of the lower neck to the tracheostomy tube in bilateral pleural effusions No acute cervical findings CT facial bones: Radiologist's Impression: No acute facial bone fracture Soft tissue swelling MDM Narrative Medical decision making narrative: CT scan does not show any signs of fracture or intracranial hemorrhage. She does have bruising around the left eye which is not surprising given her presentation with the laceration is located. Laceration was closed as described above. Patient and were given care instructions and return precautions. They both expressed understanding and agreement. Discharge Plan Departure Patient Disposition: Home Clinical Impression: Forehead laceration, Contusion of eye, left, Contusion of nose, Abrasion of knee, left Instructions: Eye Contusion, DI for Laceration Repair, How to Prevent Falls Activity Restrictions/Additional Instructions: The stitches that were placed today do need to be removed in approximately 7-10 days. This can be done by either your primary doctor or the walk-in clinic. Until then you can shower like normal. I would not be surprised if you have worsening bruising around her left eye over the next couple days. Continue to take all of your medications as directed. Return to the emergency department for any new or worsening symptoms Prescriptions: No Action famotidine 20 mg tablet 20 mg feeding tube DAILY Qty: 90 RF: 3 imipramine HCl 50 mg tablet 50 mg feeding tube BEDTIME Qty: 90 RF: 3 levothyroxine 200 mcg tablet 225 mcg Feeding Tube DAILY Qty: 90 RF: 3 meclizine 25 mg tablet 25 mg Feeding Tube Q6H PRN (Reason: Dizziness) Qty: 240 RF: 3 nystatin 100,000 unit/gram cream 1 applic topical DAILY Qty: 30 RF: 11 nystatin 100,000 unit/mL suspension 5 ml PO BEDTIME Qty: 250 RF: 11 ondansetron 4 mg tablet,disintegrating 4 mg Feeding Tube TID PRN (Reason: Nausea) Qty: 270 RF: 3 silver nitrate applicators 75-25 % stick 1 applic TOP 2XW Qty: 100 RF: 11 sodium chloride 0.9 % (flush) Syringe 20 ml IV .COMPLEX PRN (Reason: IV line flush) Qty: 5400 RF: 3 (DME) DISABLED PARKING PERMIT See Rx Instructions .ROUTE .MEDSUPPLY Qty: 1 RF: 0 venlafaxine 75 mg tablet 75 mg feeding tube TID Qty: 270 RF: 3 Hold Instructions: Dose reduction to 150mg clonazepam 0.5 mg tablet,disintegrating 0.5 mg Feeding Tube TID Qty: 45 RF: 0 cetirizine [Wal-Zyr (cetirizine)] 1 mg/mL solution 5 mg feeding tube Q12H PRN (Reason: Secretions) Qty: 960 RF: 3 clobetasol 0.05 % cream 1 applic topical DAILY Qty: 60 RF: 3 cyclobenzaprine 5 mg tablet 5 mg feeding tube TIDP PRN (Reason: muscle spasm) Qty: 270 RF: 3 ferrous sulfate 220 mg (44 mg iron)/5 mL elixir 330 mg feeding tube TID Qty: 2025 RF: 3 gabapentin 250 mg/5 mL solution 900 mg Feeding Tube BID Qty: 3240 RF: 11 guaifenesin 200 mg/5 mL liquid 200 mg PO BID Qty: 946 RF: 3 hydrocortisone 2.5 % cream 1 applic TOPICAL PRN PRN (Reason: Rash) Qty: 90 RF: 3 ipratropium bromide 42 mcg (0.06 %) spray,non-aerosol 2 spray INTRANASAL TID Qty: 90 RF: 3 metoprolol tartrate 25 mg tablet 37.5 mg PO BID Qty: 270 RF: 3 TobraDex 0.3-0.1 % ointment 1 applic .ROUTE .COMPLEX Qty: 10.5 RF: 3 (DME) Innospire Go Nebulizer Misc See Rx Instructions .Route Qty: 1 RF: 0 diazepam 5 mg/mL concentrate 2.5 mg PO BID PRN (Reason: anxiety, muscle spasm) Qty: 30 RF: 5 levothyroxine 25 mcg tablet 50 mcg PO DAILY RF: 0 acetaminophen 500 mg/15 mL liquid 1,000 mg PO Q6H PRN (Reason: Headache) RF: 0 ascorbic acid (vitamin C) 1,000 mg tablet 500 mg Feeding Tube DAILY RF: 0 ibuprofen [Children's Advil] 100 mg/5 mL suspension 400 mg Feeding Tube Q4H PRN (Reason: Headache) RF: 0 Promote with Fiber 0.06 gram-1 kcal/mL Liquid See Rx Instructions .ROUTE .COMPLEX RF: 0 glycerin (adult) Suppository 1 supp NV Q3D PRN (Reason: Constipation) RF: 0 Referrals: Armani Wilkins MD [Primary Care Provider] -
[2021-01-18] MEDS: LIDO 1%/SOD BICARB 8.4% (10ML) 10 ML SYRINGE INJ (03:50)
[2021-01-18] MEDS: ACETAMINOPHEN 325 MG TABLET 650 MG PO (05:09)
== END 2021-01-18 05:36 | disposition home or self-care (01) ==
PROVIDERS: Emergency Provider Emergency Medicine; Family Provider Student in an Organized Health Care Education/Training Program; PCP Student in an Organized Health Care Education/Training Program
DX: S01.81XA Laceration without foreign body of other part of head, initial encounter (principal); S05.12XA Contusion of eyeball and orbital tissues, left eye, initial encounter; S00.33XA Contusion of nose, initial encounter; S80.212A Abrasion, left knee, initial encounter; W01.0XXA Fall on same level from slipping, tripping and stumbling without subsequent striking against object, initial encounter
CPT/HCPCS: 12013; 70450; 70486; 72125; 99283; 99284

== ENCOUNTER → 2021-02-26 12:16 | Outpatient (CLI) | payer MEDICARE, OTHER, MEDICAID, SELFPAY ==
[2020-03-26 17:32] VITALS: BMI 20.7
--- NOTE | 2021-02-26 12:19 | DI.RAD.S_ITS ---
PROCEDURE: XR CHEST 2V INDICATIONS: Cough, congestion, recent paraneoplastic effusion TECHNIQUE: 2 views of the chest were acquired. COMPARISON: [facility], CT, CT CHEST W CON, 01/15/2021, 11:29. [facility], CR, XR CHEST 2V, 01/15/2021, 10:24. FINDINGS: Surgical changes and devices: None. Lungs and pleura: Loculated appearing left pleural effusion is present which appears increased along the mid and upper chest. A small new right basilar pleural effusion is present. Increased interstitial markings throughout the aerated right lung. Persistent left basilar airspace opacities again noted. Mediastinum: Mediastinal contours are normal. Heart size is normal. Bones and chest wall: No suspicious bony abnormalities. Soft tissues appear unremarkable. IMPRESSION: 1. Increase in presumed loculated left pleural effusion from prior examination. 2. Small new right pleural effusion is present. 3. Diffuse interstitial opacities within the aerated right lung which appears new from prior examination and may represent atypical pneumonia or pulmonary edema. Correlate clinically. 4. Persistent left basilar airspace opacity consistent with atelectasis versus consolidation or neoplasm. Dictated by: Donnie Hu [facility] Interpreted: Rosanna Fountain MD on 02/26/2021 at 13:11 Transcribed by: ROSAURA on 02/26/2021 at 13:16 Approved by: Rosanna Fountain M.D. on 02/26/2021 at 16:15
== END ==
PROVIDERS: Family Provider Student in an Organized Health Care Education/Training Program; PCP Student in an Organized Health Care Education/Training Program; Referring Provider Student in an Organized Health Care Education/Training Program; Visit Provider Student in an Organized Health Care Education/Training Program
DX: J90 Pleural effusion, not elsewhere classified (principal); R05.9 Cough, unspecified
CPT/HCPCS: 71046

== ENCOUNTER → 2021-02-26 12:17 | Outpatient (CLI) | payer MEDICARE, OTHER, MEDICAID, SELFPAY ==
[2020-03-26 17:32] VITALS: BMI 20.7
== END ==
PROVIDERS: Family Provider Student in an Organized Health Care Education/Training Program; PCP Student in an Organized Health Care Education/Training Program; Referring Provider Student in an Organized Health Care Education/Training Program; Visit Provider Student in an Organized Health Care Education/Training Program
DX: R05.9 Cough, unspecified (principal); J18.9 Pneumonia, unspecified organism
CPT/HCPCS: 87070; 87205

== ENCOUNTER 2021-02-26 21:24 | Inpatient (IN) | payer MEDICARE, OTHER, MEDICAID, SELFPAY ==
[2020-03-26 17:32] VITALS: BMI 20.7
[2021-02-26] VITALS (8 sets, daily range): BP systolic 141–180; BP diastolic 71–87; PULSE 54–99; RESP 17–24; TEMP 36.1; O2SAT 87–96
--- NOTE | 2021-02-26 21:31 | DI.RAD.S_ITS ---
PROCEDURE: XR ABDOMEN MIN 2V INDICATIONS: abdominal pain TECHNIQUE: 2 views of the abdomen were acquired. COMPARISON: [facility], CR, XR ABDOMEN 1V, 01/05/2019, 0:53. FINDINGS: Surgical changes and devices: There is a gastrostomy tube in the left upper quadrant. Bowel: No pneumoperitoneum. The bowel gas pattern demonstrates moderate stool distention throughout the colon suggestive of constipation or obstipation. No definite dilated small bowel loops to suggest obstruction. Soft tissues: No suspicious abdominal calcifications. Bilateral pleural effusions are demonstrated within the visualized lung bases including a loculated component laterally and the left hemithorax. Bones: No suspicious bony abnormalities. IMPRESSION: 1. Moderate colonic stool distention suggestive of constipation or obstipation. No definite evidence bowel obstruction. 2. Bilateral pleural effusions within the visualized lung bases as well as a loculated component laterally in the left hemithorax. Recommend correlation with concurrent study of the chest. Dictated by: Hayden Lopez M.D. on 02/26/2021 at 22:33 Approved by: Hayden Lopez M.D. on 02/26/2021 at 22:34
--- NOTE | 2021-02-26 21:31 | DI.RAD.S_ITS ---
PROCEDURE: XR CHEST 1V INDICATIONS: cough, Shortness of breath TECHNIQUE: One view of the chest was acquired. COMPARISON: [facility], CT, CT CHEST W CON, 01/15/2021, 11:29. [facility], CR, XR CHEST 2V, 02/26/2021, 12:13. FINDINGS: Surgical changes and devices: Surgical clips are redemonstrated within the left neck and right chest wall. Lungs and pleura: There is persistent opacification of the majority of the left hemithorax with a loculated moderate left effusion laterally as well as small bilateral layering effusions. There are persistent confluent opacities within the left lung consistent with consolidation or atelectasis. Mild right basilar atelectasis or consolidation also redemonstrated. There is persistent pulmonary edema. No pneumothorax. Mediastinum: The left heart contours are obscured. Bones and chest wall: No suspicious bony lesions. Overlying soft tissues appear unremarkable. IMPRESSION: 1. Persistent opacification of the left hemithorax likely secondary to a moderate pleural effusion with a loculated component laterally. Small bilateral layering pleural fluid component also redemonstrated. 2. Opacification of the left lung consistent with consolidation or atelectasis. 3. Persistent pulmonary edema. Dictated by: Hayden Lopez M.D. on 02/26/2021 at 22:29 Approved by: Hayden Lopez M.D. on 02/26/2021 at 22:32
[2021-02-26 21:56] LABS: Alanine Aminotransferase 15 IU/L (<35); Albumin 4.1 g/dL (3.5-5.0); Alkaline Phosphatase 143 U/L (38-126); Aspartate Aminotransferase 27 IU/L (14-36); BUN Creatinine Ratio 27.3 (6-22); Bilirubin Total 0.2 mg/dL (0.2-1.3); Blood Urea Nitrogen 21 mg/dL (7-17); Calcium 8.1 mg/dL (8.4-10.2); Carbon Dioxide 33 mmol/L (22-32); Chloride 84 mmol/L (98-107); Estimated Glomerular Filt Rate > 60.0 mL/min (>60); Glucose 112 mg/dL (80-110); HEMOLYSIS < 15 (0-50); Potassium 4.5 mmol/L (3.4-5.1); Sodium 125 mmol/L (137-145); Total Protein 8.1 g/dL (6.3-8.2)
--- NOTE | 2021-02-26 21:57 | ED.SOB ---
HPI - SOB/Dyspnea General Chief Complaint: Shortness of Breath/Dyspnea Stated Complaint: Trach needs suctioning, abd pain Time Seen by Provider: 02/26/21 21:30 Source: patient, family and EMS Mode of arrival: EMS History of Present Illness HPI Narrative: 70-year-old female nonsmoker with history of vocal cord paralysis, peripheral neuropathy, Pedro syndrome, COPD, thyroid cancer presents by EMS for evaluation of difficulty in breathing. She had been having abdominal discomfort and was actually being driven in by her by private auto when she started having respiratory distress and there was some concern that her tracheal stent might be clogged. He was unable to suction her appropriately at home and called EMS for transportation. She has had no fever chills. She has had no nausea or vomiting. She has not reported to be dizzy, weak or lightheaded. Patient is currently in the early workup of a newly discovered L lung mass thought to be metastatic. She has upcoming appointments with medical oncology at [facility] Related Data Home Medications Medication Instructions Recorded Confirmed ascorbic acid (vitamin C) 1,000 mg 500 mg FEEDING TUBE DAILY tab 01/06/18 02/26/21 tablet ibuprofen 100 mg/5 mL oral 400 mg FEEDING TUBE Q4H PRN ml 01/06/18 02/26/21 suspension (Children's Advil) glycerin (adult) 1 supp LA Q3D PRN 01/05/19 02/26/21 nutritional supplement-fiber 0.06 See Rx Instructions .ROUTE .COMPLEX 01/05/19 02/26/21 gram-1 kcal/mL oral liquid (Promote with Fiber) acetaminophen 500 mg/15 mL oral 1,000 mg PO Q6H PRN ml 02/28/20 02/26/21 liquid levothyroxine 25 mcg tablet 50 mcg PO DAILY tab 01/01/21 02/26/21 Previous Rx's Medication Instructions Recorded famotidine 20 mg tablet 20 mg FEEDING TUBE DAILY #90 tab 05/02/20 imipramine HCl 50 mg tablet 50 mg FEEDING TUBE BEDTIME #90 tab 05/02/20 meclizine 25 mg tablet 25 mg FEEDING TUBE Q6H PRN #240 tab 05/02/20 nystatin 100,000 unit/gram topical 1 applic TOPICAL DAILY #30 g 05/02/20 cream nystatin 100,000 unit/mL oral 5 ml PO BEDTIME #250 ml 05/02/20 suspension ondansetron 4 mg disintegrating 4 mg FEEDING TUBE TID PRN #270 tab 05/02/20 tablet silver nitrate applicators 75 %-25 1 applic TOP 2XW #100 each 05/02/20 % topical stick sodium chloride 0.9 % (flush) 20 ml IV .COMPLEX PRN #5400 ml 08/02/20 DISABLED PARKING PERMIT #1 ea 09/10/20 venlafaxine 75 mg tablet 75 mg FEEDING TUBE TID #270 tab 10/26/20 cetirizine 1 mg/mL oral solution 5 mg FEEDING TUBE Q12H PRN #960 ml 12/18/20 (Kai-Brianyr (cetirizine)) clobetasol 0.05 % topical cream 1 applic TOPICAL DAILY #60 g 12/18/20 cyclobenzaprine 5 mg tablet 5 mg FEEDING TUBE TIDP PRN #270 tab 12/18/20 ferrous sulfate 220 mg (44 mg 330 mg FEEDING TUBE TID #2025 ml 12/18/20 iron)/5 mL oral elixir gabapentin 250 mg/5 mL oral 900 mg FEEDING TUBE BID #3240 ml 12/18/20 solution guaifenesin 200 mg/5 mL oral liquid 200 mg PO BID #946 ml 12/18/20 hydrocortisone 2.5 % topical cream 1 applic TOPICAL PRN PRN #90 g 12/18/20 ipratropium bromide 42 mcg (0.06 2 spray INTRANASAL TID #90 ml 12/18/20 %) nasal spray metoprolol tartrate 25 mg tablet 37.5 mg PO BID #270 tab 12/18/20 tobramycin-dexamethasone 0.3 %-0.1 1 applic .ROUTE .COMPLEX #10.5 g 12/18/20 % eye ointment (TobraDex) Sodium Bicarbonate Inj 8.4% #300 ea 02/12/21 clonazepam 0.5 mg disintegrating 0.5 mg FEEDING TUBE TID #270 tab 02/12/21 tablet nebulizers (Innospire Go Nebulizer) #1 ea 02/12/21 diazepam 5 mg/mL oral concentrate 2.5 mg PO BID PRN #30 ml 02/19/21 albuterol sulfate 2.5 mg INHALATION TID PRN #75 ml 02/20/21 duloxetine 30 mg capsule,delayed 30 mg PO DAILY #15 cap 02/26/21 release sprinkle fentanyl 25 mcg/hr transdermal 1 patch TRANSDERMAL Q72H #10 ea 02/26/21 patch levofloxacin 250 mg/10 mL oral 750 mg PO DAILY 10 Days #300 ml 02/26/21 solution levothyroxine 200 mcg tablet 288 mcg FEEDING TUBE DAILY #90 tab 02/26/21 oxycodone 5 mg tablet 5 mg PO Q4H PRN 10 Days #60 tab 02/26/21 Allergies Allergy/AdvReac Type Severity Reaction Status Date / Time amoxicillin [From Augmentin] Allergy Intermediate Severe Verified 02/26/21 11:18 Diarrhea cat dander Allergy Intermediate Verified 02/26/21 11:18 clavulanic acid Allergy Intermediate Severe Verified 02/26/21 11:18 [From Augmentin] Diarrhea Sulfa (Sulfonamide Allergy Unknown Verified 02/26/21 11:18 Antibiotics) Review of Systems Review of Systems Narrative: GENERAL: Denies chills, fatigue, malaise, fever, sweats. HEENT: Denies sinus pain, ear pain, sore throat, difficulty swallowing, dizziness. RESPIRATORY: See HPI CARDIOVASCULAR: Denies chest pain, palpitations, orthopnea, edema, GASTROINTESTINAL: See HPI : Denies dysuria, frequency, incontinence, hematuria, urinary retention. MUSCULOSKELETAL: denies weakness, joint pain, or bony pain SKIN: Denies rash, skin lesions, or other NEUROLOGIC: Denies weakness, headache, numbness, change in speech, confusion, seizures, incoordination. PSYCHIATRIC: No concerning psychosocial issues. 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) History of radiation therapy (~1992) Horners syndrome (~2010) Hypothyroid Kidney disease (~1974) Measles (~1952) Migraines MRSA (methicillin resistant Staphylococcus aureus) (~2015) Mumps (~1956) Peripheral neuropathy (~2010) Pituitary adenoma Rubella (~1959) Seizures (~1958) Thyroid cancer (~1969) Vocal cord paralysis (~2010) Surgical History Anesthesia History of foot surgery (~2013) History of neck surgery (~2009) History of surgery (~2010) History of thyroid surgery (~1982) History of thyroidectomy (~1969) Family History Father Cancer Diabetes mellitus History of heart disease Hyperlipidemia Hypertension Polycythemia vera Mother High cholesterol History of heart disease Sister Age: 75 High cholesterol Sister High cholesterol Mental health problem Sister Asthma Grandmother Parkinson's disease Grandfather Cancer Social History household members: spouse Smoking Status: Never smoker Smoking Status: Never smoker alcohol intake frequency: holidays/special occasions only Substance Use Type: does not use Exam Narrative Exam Narrative: GENERAL: [70 year old patient appears stated age. Well-developed patient, in mild distress. Thin and frail minimal increased work of breathing HEAD: Atraumatic. Normocephalic. EYES: Pupils equal round and reactive. Extraocular motions intact. No scleral icterus. No injection or drainage. ENT: Nose without bleeding, purulent drainage. Throat without erythema, tonsillar hypertrophy or exudate. Airway patent. NECK: Trachea midline. Non tender CARDIOVASCULAR: Regular rate and rhythm without murmurs, gallops, or rubs. RESPIRATORY: Minimal increased work of breathing, decreased lung sounds right base versus left with faint crackles GASTROINTESTINAL: Abdomen soft, generalized tenderness, no distension EXTREMITIES: No edema or joint tenderness. BACK: Nontender without deformity or crepitance. No flank tenderness. NEURO: AOx3. SKIN: No rash or erythema of visible areas Initial Vital Signs Initial Vital Signs: Vital Signs Pulse Rate 54 L 02/26/21 21:30 Pulse Oximetry 87 L 02/26/21 21:30 Course Orders Ordered: ED Orders 02/26/21 21:31 XR abdomen min 2V Stat XR chest 1V Stat 02/26/21 21:35 Complete Blood Count AUTO DIFF Stat Comprehensive Metabolic Panel Stat 02/26/21 22:42 CT chest abd pel w con Stat Discontinued Medications Sodium Chloride (Normal Saline 0.9%) 1,000 mls @ 1,000 mls/hr IV BOLUS ONE Stop: 02/26/21 22:30 Last Admin: 02/26/21 22:45 Dose: 1,000 mls/hr Documented by: SANTOS Reevaluation(s) Reevaluation #1: patient does have some increased oxygen requirements and when off supplental O2 she drops into the 80s. Vital Signs Vital signs: Vital Signs - 8 hr 02/26/21 21:30 02/26/21 21:31 02/26/21 21:36 Temperature 96.9 F L Pulse Rate 54 L 95 H 99 H Respiratory Rate 21 17 Blood Pressure 180/87 H 180/81 H Pulse Oximetry 87 L 96 93 02/26/21 22:00 02/26/21 22:08 02/26/21 22:30 Temperature Pulse Rate 90 92 H Respiratory Rate 22 22 20 Blood Pressure 141/76 H 152/71 H Pulse Oximetry 96 96 93 02/26/21 23:00 Temperature Pulse Rate 96 H Respiratory Rate 24 Blood Pressure 155/80 H Pulse Oximetry 94 MDM - SOB/Dyspnea Lab Data Result diagrams: 02/26/21 21:35 02/26/21 21:35 Labs: Lab Results 02/26/21 02/26/21 Range/Units 21:35 21:35 WBC 6.5 (4.5-11.0) X10^3/uL RBC 4.49 (4.0-5.2) X10^6/uL Hgb 13.8 (12.0-16.0) g/dL Hct 40.4 (36-46) % MCV 89.9 (80-100) fL MCH 30.6 (26-34) PG MCHC 34.1 (30-36) % RDW 14.3 (11.6-14.8) % Plt Count 481 H (150-400) X10^3/uL Neut % (Auto) 82.0 H (50-75) % Lymph % (Auto) 5.2 L (25-40) % [place] % (Auto) 8.0 (3-14) % Eos % (Auto) 3.8 (2-4) % Baso % (Auto) 1.0 (0-2) % Neut # (Auto) 5300 (1264-8519) /uL Lymph # (Auto) 300 L (0768-2151) /uL [place] # (Auto) 500 (0-900) /uL Eos # (Auto) 200 (0-450) /uL Baso # (Auto) 100 (0-100) /uL Sodium 125 L (137-145) mmol/L Potassium 4.5 (3.4-5.1) mmol/L Chloride 84 L (98-107) mmol/L Carbon Dioxide 33 H (22-32) mmol/L BUN 21 H (7-17) mg/dL Creatinine 0.77 (0.52-1.04) mg/dL Estimated GFR > 60.0 (>60) mL/min BUN/Creatinine Ratio 27.3 H (6-22) Glucose 112 H (80-110) mg/dL Calcium 8.1 L (8.4-10.2) mg/dL Total Bilirubin 0.2 (0.2-1.3) mg/dL AST 27 (14-36) IU/L ALT 15 (<35) IU/L Alkaline Phosphatase 143 H (38-126) U/L Total Protein 8.1 (6.3-8.2) g/dL Albumin 4.1 (3.5-5.0) g/dL Globulin 4.0 (1.7-4.1) g/dL Albumin/Globulin Ratio 1.0 (1.0-2.8) Imaging Data Chest x-ray: Radiologist's Impression: [address] [address] XRay Report Signed Patient: Aimee Day MR#: [id number] : 1950 Acct:[id number] Age/Sex: 70 / F Date of Service: 02/26/21 Loc: ED Accession Number: [id number] ?? Procedure: XR chest 1V Ordering Provider: Galindo Mendoza D.O. PROCEDURE:? XR CHEST 1V ? INDICATIONS:? cough, Shortness of breath ? TECHNIQUE:? One view of the chest was acquired.? ? COMPARISON:? [facility], CT, CT CHEST W CON, 01/15/2021, 11:29.? [facility], CR, XR CHEST 2V, 02/26/2021, 12:13. ? FINDINGS:? ? Surgical changes and devices:? Surgical clips are redemonstrated within the left neck and right chest wall. ? Lungs and pleura:? There is persistent opacification of the majority of the left hemithorax with a loculated moderate left effusion laterally as well as small bilateral layering effusions.? There are persistent confluent opacities within the left lung consistent with consolidation or atelectasis.? Mild right basilar atelectasis or consolidation also redemonstrated.? There is persistent pulmonary edema.? No pneumothorax. ? Mediastinum:? The left heart contours are obscured. ? Bones and chest wall:? No suspicious bony lesions.? Overlying soft tissues appear unremarkable.? ? IMPRESSION:? ? 1. Persistent opacification of the left hemithorax likely secondary to a moderate pleural effusion with a loculated component laterally.? Small bilateral layering pleural fluid component also redemonstrated. ? 2. Opacification of the left lung consistent with consolidation or atelectasis. ? 3. Persistent pulmonary edema. ? ? Dictated by: Hayden Lopez M.D. on 02/26/2021 at 22:29 ? ? Approved by: Hayden Lopez M.D. on 02/26/2021 at 22:32 ? Abdominal x-ray: Radiologist's Impression: [place] [address] XRay Report Signed Patient: Aimee Day MR#: [id number] : 1950 Acct:[id number] Age/Sex: 70 / F Date of Service: 02/26/21 Loc: ED Accession Number: [id number] ?? Procedure: XR abdomen min 2V Ordering Provider: Galindo Mendoza D.O. PROCEDURE:? XR ABDOMEN MIN 2V ? INDICATIONS:? abdominal pain ? TECHNIQUE:? 2 views of the abdomen were acquired.? ? COMPARISON:? [facility], , XR ABDOMEN 1V, 01/05/2019, 0:53. ? FINDINGS:? Surgical changes and devices:? There is a gastrostomy tube in the left upper quadrant.? ? Bowel:? No pneumoperitoneum.? The bowel gas pattern demonstrates moderate stool distention throughout the colon suggestive of constipation or obstipation.? No definite dilated small bowel loops to suggest obstruction. ? Soft tissues:? No suspicious abdominal calcifications.? Bilateral pleural effusions are demonstrated within the visualized lung bases including a loculated component laterally and the left hemithorax.? ? Bones:? No suspicious bony abnormalities.? ? IMPRESSION:? ? 1. Moderate colonic stool distention suggestive of constipation or obstipation.? No definite evidence bowel obstruction. ? 2. Bilateral pleural effusions within the visualized lung bases as well as a loculated component laterally in the left hemithorax.? Recommend correlation with concurrent study of the chest. ? ? Dictated by: Hayden Lopez M.D. on 02/26/2021 at 22:33 ? ? Approved by: Hayden Lopez M.D. on 02/26/2021 at 22:34 ? MDM Narrative Medical decision making narrative: Patient requiring supplemental oxygen which is new for her, and a normal day she will have pulse ox of 92-93%. Today without oxygen she drops into the 80s. This is likely a consequence of the evolution of her underlying illness, along with a newly discovered right-sided pleural effusion. Additionally she has low sodium which is likely contributing to her fatigue. There are no medications in her list obviously contributing to this, highly likely to be paraneoplastic and origin. Patient requires hospitalization due to her hypoxemic respiratory failure and symptomatic hyponatremia. She will potentially have consultation with Radiology for thoracentesis. Patient will be managed by hospitalist Discharge Plan Departure Patient Disposition: Admitted As Inpatient Prescriptions: No Action famotidine 20 mg tablet 20 mg feeding tube DAILY Qty: 90 RF: 3 imipramine HCl 50 mg tablet 50 mg feeding tube BEDTIME Qty: 90 RF: 3 meclizine 25 mg tablet 25 mg Feeding Tube Q6H PRN (Reason: Dizziness) Qty: 240 RF: 3 nystatin 100,000 unit/gram cream 1 applic topical DAILY Qty: 30 RF: 11 nystatin 100,000 unit/mL suspension 5 ml PO BEDTIME Qty: 250 RF: 11 ondansetron 4 mg tablet,disintegrating 4 mg Feeding Tube TID PRN (Reason: Nausea) Qty: 270 RF: 3 silver nitrate applicators 75-25 % stick 1 applic TOP 2XW Qty: 100 RF: 11 sodium chloride 0.9 % (flush) Syringe 20 ml IV .COMPLEX PRN (Reason: IV line flush) Qty: 5400 RF: 3 (DME) DISABLED PARKING PERMIT See Rx Instructions .ROUTE .MEDSUPPLY Qty: 1 RF: 0 venlafaxine 75 mg tablet 75 mg feeding tube TID Qty: 270 RF: 3 Hold Instructions: Transition to Cymbalta cetirizine [Wal-Zyr (cetirizine)] 1 mg/mL solution 5 mg feeding tube Q12H PRN (Reason: Secretions) Qty: 960 RF: 3 clobetasol 0.05 % cream 1 applic topical DAILY Qty: 60 RF: 3 cyclobenzaprine 5 mg tablet 5 mg feeding tube TIDP PRN (Reason: muscle spasm) Qty: 270 RF: 3 ferrous sulfate 220 mg (44 mg iron)/5 mL elixir 330 mg feeding tube TID Qty: 5 RF: 3 gabapentin 250 mg/5 mL solution 900 mg Feeding Tube BID Qty: 3240 RF: 11 guaifenesin 200 mg/5 mL liquid 200 mg PO BID Qty: 946 RF: 3 hydrocortisone 2.5 % cream 1 applic TOPICAL PRN PRN (Reason: Rash) Qty: 90 RF: 3 ipratropium bromide 42 mcg (0.06 %) spray,non-aerosol 2 spray INTRANASAL TID Qty: 90 RF: 3 metoprolol tartrate 25 mg tablet 37.5 mg PO BID Qty: 270 RF: 3 TobraDex 0.3-0.1 % ointment 1 applic .ROUTE .COMPLEX Qty: 10.5 RF: 3 clonazepam 0.5 mg tablet,disintegrating 0.5 mg Feeding Tube TID Qty: 270 RF: 0 (DME) Sodium Bicarbonate Inj 8.4% See Rx Instructions .Route .MEDSUPPLY Qty: 300 RF: 4 (DME) Innospire Go Nebulizer Misc See Rx Instructions .Route Qty: 1 RF: 0 diazepam 5 mg/mL concentrate 2.5 mg PO BID PRN (Reason: anxiety, muscle spasm) Qty: 30 RF: 4 albuterol sulfate 2.5 mg /3 mL (0.083 %) solution for nebulization 2.5 mg inhalation TID PRN (Reason: shortness of breath or wheezing) Qty: 75 RF: 0 levofloxacin 250 mg/10 mL solution 750 mg PO DAILY 10 Days Qty: 300 RF: 0 oxycodone 5 mg tablet 5 mg PO Q4H PRN (Reason: pain) 10 Days Qty: 60 RF: 0 levothyroxine 25 mcg tablet 50 mcg PO DAILY RF: 0 levothyroxine 200 mcg tablet 288 mcg Feeding Tube DAILY Qty: 90 RF: 3 fentanyl 25 mcg/hr patch 72 hour 1 patch transdermal Q72H Qty: 10 RF: 0 duloxetine 30 mg capsule, delayed rel sprinkle 30 mg PO DAILY Qty: 15 RF: 0 acetaminophen 500 mg/15 mL liquid 1,000 mg PO Q6H PRN (Reason: Headache) RF: 0 ascorbic acid (vitamin C) 1,000 mg tablet 500 mg Feeding Tube DAILY RF: 0 ibuprofen [Children's Advil] 100 mg/5 mL suspension 400 mg Feeding Tube Q4H PRN (Reason: Headache) RF: 0 Promote with Fiber 0.06 gram-1 kcal/mL Liquid See Rx Instructions .ROUTE .COMPLEX RF: 0 glycerin (adult) Suppository 1 supp LA Q3D PRN (Reason: Constipation) RF: 0 Referrals: Armani Wilkins MD [Primary Care Provider] - Admit Date/Time: 02/27/21 00:42
[2021-02-26 21:58] LABS: Add Manual Diff / Slide Review NO; Basophils Absolute Auto 100 /uL (0-100); Eosinophils Absolute Auto 200 /uL (0-450); Eosinophils Percent Auto 3.8 % (2-4); Hematocrit 40.4 % (36-46); Hemoglobin 13.8 g/dL (12.0-16.0); Lymphocytes Absolute Auto 300 /uL (1100-4500); Lymphocytes Percent Auto 5.2 % (25-40); Mean Corpuscular HGB Conc 34.1 % (30-36); Mean Corpuscular Hemoglobin 30.6 PG (26-34); Mean Corpuscular Volume 89.9 fL (80-100); Monocytes Absolute Auto 500 /uL (0-900); Neutrophils Absolute Auto 5300 /uL (1500-7000); Platelet Count 481 X10^3/uL (150-400); Red Blood Cell Count 4.49 X10^6/uL (4.0-5.2); Red Cell Distribution Width 14.3 % (11.6-14.8); White Blood Cell Count 6.5 X10^3/uL (4.5-11.0)
--- NOTE | 2021-02-26 22:13 | RT ---
Called to bedside at 2123 to assess pt. EMS stated pt has trach and needs suctioning, possible mucous plug. Upon arrival, pt fount to have Dooley T-tube instead. Suctioned pt 4 times, small to moderate thin/frothy secretions, with fair cough. Pt's has spare T-tube at bedside along with #6 Shiley and #8 Shiley trachs for emergency. Placed pt on 10 LPM and 35% FiO2 aerosol cool mist. Pt is tolerating it well. Per , pt takes albuterol SVN and hypertonic saline 3-4 times day. Pt's also has handouts to educate providers about the Dooley T-tube. and RN aware.
--- NOTE | 2021-02-26 22:42 | DI.CT.S_ITS ---
PROCEDURE: CT CHEST ABD PEL W CON INDICATIONS: increased shortness of breath, abdominal pain TECHNIQUE: After the administration of intravenous contrast, 5 mm thick sections acquired from the lung apices to the symphysis. 2.5 mm thick coronal and sagittal reformats were acquired. Additional 7 mm thick coronal maximum intensity projection (MIP) reformats acquired through the lungs. Optional 10-minute delayed imaging may be performed from the kidneys to the bladder. For radiation dose reduction, the following was used: automated exposure control, adjustment of mA and/or kV according to patient size. COMPARISON: None. FINDINGS: Image quality: Excellent. CHEST: Lungs: Patchy airspace opacities in both lungs. Passive atelectasis of both lungs due to moderate-sized bilateral pleural effusions, loculated in appearance on the left. Tracheostomy is in appropriate position. Mediastinum: No mediastinal hematomas. Heart size is normal. No pericardial effusion. Thoracic aorta and pulmonary arteries demonstrate normal size and enhancement. No mediastinal or hilar adenopathy. Esophagus is normal in caliber. No hiatal hernia. Chest wall: No rib fractures. No subcutaneous emphysema. No axillary or supraclavicular adenopathy. ABDOMEN/PELVIS: No acute process in the abdomen or pelvis. Percutaneous gastrostomy tube is in appropriate position. Surgical clips versus embolization coils in the right hemipelvis unchanged. IMPRESSION: Loculated left pleural effusion, moderate in size. Simple effusion on the right, also moderate. Patchy airspace opacities in the aerated lungs likely infectious or inflammatory. Dictated by: Mich Bhatt M.D. on 02/26/2021 at 23:35 Approved by: Mich Bhatt M.D. on 02/26/2021 at 23:37
[2021-02-26] MEDS: SODIUM CHLORIDE 0.9% 1,000 ML 1000 ML IV (22:45)
[2021-02-27] VITALS (43 sets, daily range): BP systolic 132–182; BP diastolic 70–90; PULSE 74–120; RESP 12–34; TEMP 36.8–37.2; O2SAT 85–100; BMI 24.2
--- NOTE | 2021-02-27 | PATH_ITS ---
Note [facility] Accession Number: [id number] TESTS RESULT FLAG UNITS REF RANGE LAB Clinician Provided Cytology Information No. of containers..01 Other (Miscellaneous) Source: [A] 01 RIGHT PLEURAL EFFUSI DIAGNOSIS: [A] 02 RIGHT PLEURAL EFFUSI SUSPICIOUS FOR MALIGNANCY. IMMUNOHISTOCHEMISTRY STUDIES PENDING; RESULTS WILL BE REPORTED AN ADDENDUM. Pathologist ICD10: 02 J90 Signed out by: Paola Yang MD, Pathologist NPI- [id number] Performed by: Grayson Novak, Airset Caster ([facility]) Gross description: 55 CC, RED, CLOUDY RECEIVED: FRESH IN ORANGE CAP CONTAINER. /VDU 02/28/2021 1014 Local FLAG LEGEND: L-Low Normal,H-High Normal,LL-Alert Low,HH-Alert High <-Panic Low,>-Panic High,A-Abnormal,AA-Critical Abnormal Performed at: 01 =Z [facility] [address], [place] [address] Hayden Cordoba MD, [facility] [address] [place] [phone] Sarah Small MD, Performed at: 01 [facility] [address], [place], [place] [id number] MD Hayden Cordoba MD Phone: [phone]
--- NOTE | 2021-02-27 | DI.RAD.S_ITS ---
PROCEDURE: XR CHEST 1V INDICATIONS: POST THORACENTSIS TECHNIQUE: One view of the chest was acquired. COMPARISON: [facility], CT, CT CHEST ABD PEL W CON, 02/26/2021, 22:50. [facility], US, US THORACENTESIS, 02/27/2021, 13:19. [facility], CR, XR CHEST 2V, 02/26/2021, 12:13. [facility], CR, XR CHEST 1V, 02/26/2021, 21:35. FINDINGS: Surgical changes and devices: Left lung apex postoperative clips are seen. Lungs and pleura: No pneumothorax is seen. The amount of right-sided pleural effusion has decreased compared to the prior examination. Persistent left hemithorax opacity is seen, which is similar to the prior. Mediastinum: Mediastinal contours appear normal. Heart size is normal. Bones and chest wall: No suspicious bony lesions. Overlying soft tissues appear unremarkable. IMPRESSION: No pneumothorax is seen. Decreased size of the right-sided pleural effusion. Left lung apex postoperative change, with persistent left-sided opacity. Dictated by: Yosef Mckeon M.D. on 02/27/2021 at 13:14 Approved by: Yosef Mckeon M.D. on 02/27/2021 at 13:16
--- NOTE | 2021-02-27 02:34 | DI.US.S_ITS ---
PROCEDURE: US THORACENTESIS INDICATIONS: HYPOXIA TECHNIQUE: The indications, alternatives, benefits, risks, and complications of the procedure were explained to the patient. Written informed consent was obtained and placed in the chart. The chest was examined sonographically, and an appropriate site was chosen for thoracentesis. The skin was prepared and draped in the usual sterile fashion, and 1% lidocaine was infiltrated from the skin down through the pleural surface. A 19-gauge catheter-covered needle was then introduced into the pleural space, the catheter was advanced and the needle was withdrawn, and thereafter pleural fluid was aspirated. The catheter was then removed and a dressing was applied. COMPARISON: None. FINDINGS: Access site: Right hemithorax. Needle: One-Step centesis catheter with introducer needle. Fluid volume and description: 1400 mL of clear, serous effusion Fluid sent for diagnostic testing: Sent for cytology. Medications: 1% lidocaine for local anaesthesia. Complications: None; post-procedural chest radiograph is pending to assess for pneumothorax. IMPRESSION: Successful ultrasound-guided thoracentesis. Dictated by: Neeraj Cabello M.D. on 02/27/2021 at 14:40 Approved by: Neeraj Cabello M.D. on 02/27/2021 at 14:41
--- NOTE | 2021-02-27 02:40 | P.HP_ITS ---
History of Present Illness History of Present Illness Date Patient Seen: 02/27/21 Time Patient Seen: 02:40 Chief complaint: Trach needs suctioning, abd pain Narrative: 70 y/o female with a history of vocal cord paralysis, peripheral neuropathy, vu syndrome, COPD, thyroid cancer who presented to the ED for evaluation of difficulty breathing. The patient is unable to provide any history. All history is obtained via the ED notes and previous medical records. Patient presented with abdominal discomfort. She was driven by her when she developed respiratory distress and there was concern that the tracheal stent maybe clogged. He was unable to suction her and called EMS to assist. She was brought to the ED for further evaluation. In the Emergency Department she was noted to be hypoxic with RA saturation of 80%. She is normally 91% on room air. She denies fever or chills, she has no nausea or vomiting. She has a new Left lung mass thought to be metastatic and has an appointment with the [facility] for further evaluation. Patient underwent Chest Xray and CT scanning of the chest. CT of the chest reveals a loculated left pleural effusion, moderate in size. There is also a moderate effusion on the right. There are patchy airspace opacities likely infectious or inflammatory. Her WBC is 6.5 H/H 13.8/40.4,Sodium 125. Patient is admitted to the hospital for Acute Hypoxic Respiratory Failure. 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) History of radiation therapy (~1992) Horners syndrome (~2010) Hypothyroid Kidney disease (~1974) Measles (~1952) Migraines MRSA (methicillin resistant Staphylococcus aureus) (~2015) Mumps (~1956) Peripheral neuropathy (~2010) Pituitary adenoma Rubella (~1959) Seizures (~1958) Thyroid cancer (~1969) Vocal cord paralysis (~2010) Surgical History Anesthesia History of foot surgery (~2013) History of neck surgery (~2009) History of surgery (~2010) History of thyroid surgery (~1982) History of thyroidectomy (~1970) Family & Social History Family History Father Cancer Diabetes mellitus History of heart disease Hyperlipidemia Hypertension Polycythemia vera Mother High cholesterol History of heart disease Sister Age: 75 High cholesterol Sister High cholesterol Mental health problem Sister Asthma Grandmother Parkinson's disease Grandfather Cancer Social History: household members spouse Tobacco & Substance use: Smoking Status Never smoker alcohol intake frequency holiday/special occasion Substance Use Type does not use Meds Home Medications and Allergies Home Medications Medication Instructions Recorded Confirmed Type ascorbic acid (vitamin C) 1,000 mg 500 mg FEEDING TUBE DAILY tab 01/06/18 02/26/21 History tablet ibuprofen 100 mg/5 mL oral 400 mg FEEDING TUBE Q4H PRN ml 01/06/18 02/26/21 History suspension (Children's Advil) glycerin (adult) 1 supp MO Q3D PRN 01/05/19 02/26/21 History nutritional supplement-fiber 0.06 See Rx Instructions .ROUTE .COMPLEX 01/05/19 02/26/21 History gram-1 kcal/mL oral liquid (Promote with Fiber) acetaminophen 500 mg/15 mL oral 1,000 mg PO Q6H PRN ml 02/28/20 02/26/21 History liquid famotidine 20 mg tablet 20 mg FEEDING TUBE DAILY #90 tab 05/02/20 02/26/21 Rx imipramine HCl 50 mg tablet 50 mg FEEDING TUBE BEDTIME #90 tab 05/02/20 02/26/21 Rx meclizine 25 mg tablet 25 mg FEEDING TUBE Q6H PRN #240 tab 05/02/20 02/26/21 Rx nystatin 100,000 unit/gram topical 1 applic TOPICAL DAILY #30 g 05/02/20 02/26/21 Rx cream nystatin 100,000 unit/mL oral 5 ml PO BEDTIME #250 ml 05/02/20 02/26/21 Rx suspension ondansetron 4 mg disintegrating 4 mg FEEDING TUBE TID PRN #270 tab 05/02/20 02/26/21 Rx tablet silver nitrate applicators 75 %-25 1 applic TOP 2XW #100 each 05/02/20 02/26/21 Rx % topical stick sodium chloride 0.9 % (flush) 20 ml IV .COMPLEX PRN #5400 ml 08/02/20 02/26/21 Rx DISABLED PARKING PERMIT #1 ea 09/10/20 02/26/21 Rx venlafaxine 75 mg tablet 75 mg FEEDING TUBE TID #270 tab 10/26/20 02/26/21 Rx cetirizine 1 mg/mL oral solution 5 mg FEEDING TUBE Q12H PRN #960 ml 12/18/20 02/26/21 Rx (Wal-Zyr (cetirizine)) clobetasol 0.05 % topical cream 1 applic TOPICAL DAILY #60 g 12/18/20 02/26/21 Rx cyclobenzaprine 5 mg tablet 5 mg FEEDING TUBE TIDP PRN #270 tab 12/18/20 02/26/21 Rx ferrous sulfate 220 mg (44 mg 330 mg FEEDING TUBE TID #2025 ml 12/18/20 02/26/21 Rx iron)/5 mL oral elixir gabapentin 250 mg/5 mL oral 900 mg FEEDING TUBE BID #3240 ml 12/18/20 02/26/21 Rx solution guaifenesin 200 mg/5 mL oral liquid 200 mg PO BID #946 ml 12/18/20 02/26/21 Rx hydrocortisone 2.5 % topical cream 1 applic TOPICAL PRN PRN #90 g 12/18/20 02/26/21 Rx ipratropium bromide 42 mcg (0.06 2 spray INTRANASAL TID #90 ml 12/18/20 02/26/21 Rx %) nasal spray metoprolol tartrate 25 mg tablet 37.5 mg PO BID #270 tab 12/18/20 02/26/21 Rx tobramycin-dexamethasone 0.3 %-0.1 1 applic .ROUTE .COMPLEX #10.5 g 12/18/20 02/26/21 Rx % eye ointment (TobraDex) levothyroxine 25 mcg tablet 50 mcg PO DAILY tab 01/01/21 02/26/21 History Sodium Bicarbonate Inj 8.4% #300 ea 02/12/21 02/26/21 Rx clonazepam 0.5 mg disintegrating 0.5 mg FEEDING TUBE TID #270 tab 02/12/21 02/26/21 Rx tablet nebulizers (Innospire Go Nebulizer) #1 ea 02/12/21 02/26/21 Rx diazepam 5 mg/mL oral concentrate 2.5 mg PO BID PRN #30 ml 02/19/21 02/26/21 Rx albuterol sulfate 2.5 mg INHALATION TID PRN #75 ml 02/20/21 02/26/21 Rx duloxetine 30 mg capsule,delayed 30 mg PO DAILY #15 cap 02/26/21 02/26/21 Rx release sprinkle fentanyl 25 mcg/hr transdermal 1 patch TRANSDERMAL Q72H #10 ea 02/26/21 02/26/21 Rx patch levofloxacin 250 mg/10 mL oral 750 mg PO DAILY 10 Days #300 ml 02/26/21 Rx solution levothyroxine 200 mcg tablet 288 mcg FEEDING TUBE DAILY #90 tab 02/26/21 02/26/21 Rx oxycodone 5 mg tablet 5 mg PO Q4H PRN 10 Days #60 tab 02/26/21 Rx Allergies Allergy/AdvReac Type Severity Reaction Status Date / Time amoxicillin [From Augmentin] Allergy Intermediate Severe Verified 02/26/21 11:18 Diarrhea cat dander Allergy Intermediate Verified 02/26/21 11:18 clavulanic acid Allergy Intermediate Severe Verified 02/26/21 11:18 [From Augmentin] Diarrhea Sulfa (Sulfonamide Allergy Unknown Verified 02/26/21 11:18 Antibiotics) Review of Systems Review of Systems Narrative: ROS is negative except as above Exam Vital Signs (past 8 hours): - 02/26/21 21:30 02/26/21 21:31 02/26/21 21:36 Temperature 96.9 F L Pulse Rate 54 L 95 H 99 H Respiratory Rate 21 17 Blood Pressure 180/87 H 180/81 H Pulse Oximetry 87 L 96 93 02/26/21 22:00 02/26/21 22:08 02/26/21 22:30 Temperature Pulse Rate 90 92 H Respiratory Rate 22 22 20 Blood Pressure 141/76 H 152/71 H Pulse Oximetry 96 96 93 02/26/21 23:00 02/26/21 23:30 02/27/21 00:00 Temperature Pulse Rate 96 H 87 86 Respiratory Rate 24 21 13 Blood Pressure 155/80 H 144/74 H 146/72 H Pulse Oximetry 94 92 92 02/27/21 00:30 02/27/21 01:00 02/27/21 01:30 Temperature Pulse Rate 89 86 85 Respiratory Rate 25 H 16 16 Blood Pressure 153/72 H 143/74 H 162/74 H Pulse Oximetry 95 91 92 02/27/21 02:00 Temperature Pulse Rate 87 Respiratory Rate 18 Blood Pressure Pulse Oximetry 94 Fraction of Inspired Oxygen 35 Oxygen Delivery Method Trach Collar Oxygen Flow Rate 10 Narrative Exam Narrative: Frail ill appearing female lying in bed HENMT Other: NC/Scar on the front center forehead Patient is unable to open her mouth Trach in place Eyes Other: sclera anicteric, no conjunctival ejection Neck Other: trach collar in place Resp Other: decreased breath sounds in the right base Scattered rhonchi in the left lung Cardio Other: RRR nl Sl S2 GI Other: abd: soft/ non tender/ non distended Skin Other: no edema Neuro Other: patient is awake and alert, she responds appropriately Strength is symmetric and equal Sensation grossly intact Extrem Other: lower extremities warm, no edema Objective Labs Result Diagrams: 02/26/21 21:35 02/26/21 21:35 Labs: Laboratory Results - last 24 hr 02/26/21 02/26/21 21:35 21:35 WBC 6.5 RBC 4.49 Hgb 13.8 Hct 40.4 MCV 89.9 MCH 30.6 MCHC 34.1 RDW 14.3 Plt Count 481 H Neut % (Auto) 82.0 H Lymph % (Auto) 5.2 L [place] % (Auto) 8.0 Eos % (Auto) 3.8 Baso % (Auto) 1.0 Neut # (Auto) 5300 Lymph # (Auto) 300 L [place] # (Auto) 500 Eos # (Auto) 200 Baso # (Auto) 100 Sodium 125 L Potassium 4.5 Chloride 84 L Carbon Dioxide 33 H BUN 21 H Creatinine 0.77 Estimated GFR > 60.0 BUN/Creatinine Ratio 27.3 H Glucose 112 H Calcium 8.1 L Total Bilirubin 0.2 AST 27 ALT 15 Alkaline Phosphatase 143 H Total Protein 8.1 Albumin 4.1 Globulin 4.0 Albumin/Globulin Ratio 1.0 Assessment & Plan Assessment & Plan narrative: 70 y/o female with a history of thyroid cancer, vocal cord paralysis, tracheostomy, chronic pain, recent pneumonia admitted for Acute Hypoxic Respiratory Failure -Patient with new loculated pleural effusion on the left -recent pneumonia with opacities on Xray may be recurrent -Oxygenation decreased to 87% on RA -Will arrange for ultrasound guided thoracentesis of the left lung tomorrow -HOme O2 if she qualifies -Antibiotics given opacities, hypoxia, and recent pneumonia -New diagnosis of probable metastatic lung cancer -Patient needs to follow up with [facility] as scheduled on -repeat procalcitonin -history of COPD, consider short course of steroids History of Thyroid Cancer -s/p radical head and neck surgery, now unable to speak with tracheostomy and PEG for oral feeding -now hypothyroid after radiation - continue home dose of lthyroxine Chronic Pain -continue fentanyl patch -continue duloxetine, gabapentin, Anemia -resume Ferrous sulfate at discharge Hypertension -continue metoprolol Dysphagia -G-tube dependent for nutrition Probable Malignant Lung Neoplasm -continue work up per [facility] -goal is to get patient to her scheduled Medical Oncology Appointment DVT prophylaxis Patient indicates she is a full code Her is her surrogate decision maker I have utilized all available resources to review, update, and confirm her home medications. Time Spent With Patient Critical Care time: I spent a total of [] minutes of critical care time on this patient's care today; this time is exclusive of procedural time.
--- NOTE | 2021-02-27 03:20 | PC.NURSE ---
She refused fentanyl patch,has one on her left chest that she stated was placed yesterday and that it is still good.The fentanyl patch was wasted per protocol since I had opened it.
[2021-02-27] MEDS: methylPREDNISolone 125 MG/2 ML VIAL 60 MG IV ×2 (03:38→15:28)
[2021-02-27] MEDS: levoFLOXacin 750 MG/150 ML PIGGYBACK 100 MG IV (03:39)
--- NOTE | 2021-02-27 03:54 | PC.NURSE ---
Her oxygen saturation dropped into the mid 80's.I awakened her and checked her oxygen delivery system and called resp.therapy to come and suction her.This brought her saturation to 91 percent which is her norm.She denied any discomfort[She remains alert and communicates by writing and nodding yes or no .
[2021-02-27] MEDS: ALBUTEROL 2.5 MG/3 ML NEB (ADULT) INH ×4 (08:01→19:14)
[2021-02-27] MEDS: LEVOTHYROXINE 100 MCG TABLET 200 MCG PO (08:25)
[2021-02-27] MEDS: LEVOTHYROXINE 88 MCG TABLET PO (08:25)
[2021-02-27] MEDS: clonazePAM 0.5 MG TABLET PO ×3 (08:25→20:32)
[2021-02-27] MEDS: METOPROLOL IR 25 MG TABLET PO (08:26)
[2021-02-27 08:46] LABS: Add Manual Diff / Slide Review NO; Basophils Absolute Auto 0 /uL (0-100); Basophils Percent Auto 0.3 % (0-2); Eosinophils Absolute Auto 0 /uL (0-450); Eosinophils Percent Auto 0.4 % (2-4); Hematocrit 39.7 % (36-46); Hemoglobin 13.4 g/dL (12.0-16.0); Lymphocytes Absolute Auto 300 /uL (1100-4500); Lymphocytes Percent Auto 3.9 % (25-40); Mean Corpuscular HGB Conc 33.7 % (30-36); Mean Corpuscular Hemoglobin 30.2 PG (26-34); Mean Corpuscular Volume 89.7 fL (80-100); Monocytes Absolute Auto 100 /uL (0-900); Monocytes Percent Auto 1.1 % (3-14); Neutrophils Absolute Auto 7100 /uL (1500-7000); Neutrophils Percent Auto 94.3 % (50-75); Platelet Count 317 X10^3/uL (150-400); Red Blood Cell Count 4.42 X10^6/uL (4.0-5.2); Red Cell Distribution Width 14.3 % (11.6-14.8); White Blood Cell Count 7.5 X10^3/uL (4.5-11.0)
[2021-02-27 08:51] LABS: INR 1.1 (0.9-1.3)
[2021-02-27 08:56] LABS: BUN Creatinine Ratio 30.5 (6-22); Blood Urea Nitrogen 18 mg/dL (7-17); Calcium 7.9 mg/dL (8.4-10.2); Carbon Dioxide 25 mmol/L (22-32); Chloride 88 mmol/L (98-107); Estimated Glomerular Filt Rate > 60.0 mL/min (>60); Glucose 125 mg/dL (80-110); HEMOLYSIS 15 (0-50); Potassium 5.2 mmol/L (3.4-5.1); Sodium 124 mmol/L (137-145)
--- NOTE | 2021-02-27 10:18 | DIET.CONS ---
Dietary Consultation Note RD awaiting accurate weight on this patient as current weight from ED is >10kg more than one month ago. Accurate weight necessary to calculate TF needs on this G-tube dependent patient. Electronically Signed by: Tish Hernandez 02/27/21 10:18 Clinical Dietitian [address] [id number]
[2021-02-27 10:21] LABS: NT-proBNP (BNP-Adult 18+) 795 pg/mL (<125)
[2021-02-27] MEDS: DULOXETINE 30 MG CAPSULE PO (10:27)
[2021-02-27] MEDS: OXYCODONE/ACETAMINOPHEN 5/325 TABLET 2 TAB PO ×3 (10:28→20:35)
[2021-02-27 10:29] LABS: Procalcitonin 0.16 ng/mL (<0.5)
--- NOTE | 2021-02-27 11:57 | DIET.PN1 ---
Dietary Progress Note Assessment: 70y F admitted with SOB and pleural effusions referred to nutrition for tube feeding reccs. Pt has g-tube and dependent of this for all nourishment and hydration. Per pts , pt only consuming 2/3 formula x3d secondary to feeling fullness, additionally, has not been taking normal amount of free water flushes for same reason. At home, pt uses organic, plant-based TF formula Liquid Hope, three 12oz pouches per day with 160mL free water flushes c each pouch for total free water flushes of 480mL/d in addition to fluid from formula. She would have additional fluids via g-tube as desired, however, has not asked for this for several days. Pts would prefer to bring in pts home formula rather than switch to hospital formula to not upset her GI system, RD agrees with this plan. Pts will run home for supplies and bring to bedside of room 221. Pts happy to provide feedings to pt but would also like nursing to help in case he is not available. Pts home formula routine provides 1350kcals (20kcal/kg) and 69g PRO (1g/kg), also 1,080mg sodium. Ht: 167.64 cm Wt: 68.039 kg BMI: 24.2 Last BM: () Labs: RBC 4.42 X10^6/uL (4.0-5.2) 02/27/21 08:30 Hgb 13.4 g/dL (12.0-16.0) 02/27/21 08:30 Hct 39.7 % (36-46) 02/27/21 08:30 Creatinine 0.59 mg/dL (0.52-1.04) 02/27/21 08:30 NT-Pro-B Natriuret Pep 795 pg/mL (<125) H 02/27/21 08:30 Nutrition Diagnosis: reduced tube feed tolerance r/t early satiety aeb pt presents c SOB, pleural effusions, reports consuming 66% normal feeding x3d and little to know added free water flushes. Interventions: 1. Recc inititating home TF formula and protocol when safe to do so as TID g-tube bolus feeding of 12oz liquid hope EN formula mixed c 2oz water followed by free water flushes of 60mL after each feed. Pt to remain upright for 90min after feeding. 2. Recc fluid management via IVF if pt unable to tolerate free water flushes into g-tube. Monitoring/Evaluations: consult prn Electronically Signed by: Tish Hernandez 02/27/21 11:57 [facility] [address] [address]
[2021-02-27 12:46] LABS: COVID19 - ADMIT (NP swab/PCR) Negative (Negative)
--- NOTE | 2021-02-27 19:49 | PC.NURSE ---
pt has a small band aid on rt. back from thoracentesis. pt is now on 97%RA. cont pulse ox. she was on 40%FIO2 12L 98%. pt has a peg tube. brought supplies, provider ok with giving routine tube feed. 2pa stand pivot. bilat LE weakness.
[2021-02-27] MEDS: FAMOTIDINE 20 MG TABLET PO (20:32)
[2021-02-27] MEDS: IMIPRAMINE HCL 25 MG TABLET 50 MG PO (20:33)
[2021-02-27] MEDS: METOPROLOL IR 25 MG TABLET 37.5 MG PO (20:33)
[2021-02-27] MEDS: SODIUM CHLORIDE 0.9% FLUSH 10 ML IV (21:08)
[2021-02-28] MEDS: ALBUTEROL 2.5 MG/3 ML NEB (ADULT) INH ×3 (01:08→10:47)
[2021-02-28 01:33] VITALS: PULSE 82; RESP 18; O2SAT 98
[2021-02-28 02:31] LABS: Sodium Urine Random 16 mmol/L (30-90)
[2021-02-28] MEDS: levoFLOXacin 750 MG/150 ML PIGGYBACK 100 MG IV (03:59)
[2021-02-28] MEDS: methylPREDNISolone 125 MG/2 ML VIAL 60 MG IV (03:59)
[2021-02-28 05:00] VITALS: BP 161/80; PULSE 98; RESP 20; TEMP 36.2; O2SAT 98
[2021-02-28] MEDS: LEVOTHYROXINE 88 MCG TABLET PO (06:33)
[2021-02-28] MEDS: LEVOTHYROXINE 100 MCG TABLET 200 MCG PO (06:33)
[2021-02-28 07:45] VITALS: PULSE 102; RESP 18; O2SAT 99
[2021-02-28 08:31] LABS: Add Manual Diff / Slide Review NO; Basophils Absolute Auto 0 /uL (0-100); Basophils Percent Auto 0.2 % (0-2); Eosinophils Absolute Auto 0 /uL (0-450); Eosinophils Percent Auto 0.1 % (2-4); Hematocrit 38.2 % (36-46); Hemoglobin 12.9 g/dL (12.0-16.0); Lymphocytes Absolute Auto 200 /uL (1100-4500); Lymphocytes Percent Auto 2.1 % (25-40); Mean Corpuscular HGB Conc 33.8 % (30-36); Mean Corpuscular Hemoglobin 30.3 PG (26-34); Mean Corpuscular Volume 89.7 fL (80-100); Monocytes Absolute Auto 200 /uL (0-900); Neutrophils Absolute Auto 8100 /uL (1500-7000); Neutrophils Percent Auto 95.6 % (50-75); Platelet Count 449 X10^3/uL (150-400); Red Blood Cell Count 4.25 X10^6/uL (4.0-5.2); White Blood Cell Count 8.5 X10^3/uL (4.5-11.0)
[2021-02-28 08:44] LABS: Blood Urea Nitrogen 24 mg/dL (7-17); Calcium 8.4 mg/dL (8.4-10.2); Carbon Dioxide 29 mmol/L (22-32); Chloride 91 mmol/L (98-107); Estimated Glomerular Filt Rate > 60.0 mL/min (>60); Glucose 125 mg/dL (80-110); HEMOLYSIS < 15 (0-50); Potassium 5.2 mmol/L (3.4-5.1); Sodium 128 mmol/L (137-145)
[2021-02-28] MEDS: DULOXETINE 30 MG CAPSULE PO (08:44)
[2021-02-28] MEDS: OXYCODONE/ACETAMINOPHEN 5/325 TABLET 2 TAB PO (08:44)
[2021-02-28] MEDS: clonazePAM 0.5 MG TABLET PO (08:44)
[2021-02-28] MEDS: METOPROLOL IR 25 MG TABLET 37.5 MG PO (08:45)
[2021-02-28 08:53] VITALS: BP 138/73; PULSE 108; RESP 18; TEMP 36.3; O2SAT 97
[2021-02-28] MEDS: SODIUM CHLORIDE 0.9% FLUSH 10 ML IV (09:24)
--- NOTE | 2021-02-28 10:15 | PM.DS.1 ---
History of Present Illness History of Present Illness Date Patient Seen: 02/28/21 Time Patient Seen: 10:16 Chief complaint: Trach needs suctioning, abd pain Narrative: Per Dr. Jarvis, ?70 y/o female with a history of vocal cord paralysis, peripheral neuropathy, vu syndrome, COPD, thyroid cancer who presented to the ED for evaluation of difficulty breathing.? The patient is unable to provide any history. All history is obtained via the ED notes and previous medical records. Patient presented with abdominal discomfort. She was driven by her when she developed respiratory distress and there was concern that the tracheal stent maybe clogged. He was unable to suction her and called EMS to assist. She was brought to the ED for further evaluation. In the Emergency Department she was noted to be hypoxic with RA saturation of 80%. She is normally 91% on room air.? She denies fever or chills, she has no nausea or vomiting. She has a new Left lung mass thought to be metastatic and has an appointment with the [facility] for further evaluation. Patient underwent Chest Xray and CT scanning of the chest. CT of the chest reveals a loculated left pleural effusion, moderate in size. There is also a moderate effusion on the right. There are patchy airspace opacities likely infectious or inflammatory. Her WBC is 6.5 H/H 13.8/40.4,Sodium 125. Patient is admitted to the hospital for Acute Hypoxic Respiratory Failure. Discharge Providers Provider Date of admission: 02/27/21 00:42 Discharge Date: 02/28/21 Primary care physician: Armani Wilkins MD Consults: 02/27/21 02:33 Consult to Dietitian, Adult Routine Comment: recommendations on tube feeds Reason For Exam: tube feeding Discharge provider: Blu Keenan DO Summary Hospital Course Discharge Diagnosis: 1. Acute respiratory failure with hypoxia, resolved. 2. Bacterial pneumonia 3. bilateral pleural effusion, likely malignant though exact etiology unknown 4. History of Thyroid Cancer 5. Hyponatremia Chronic Pain Chronic Anemia Hypertension Dysphagia Hospital Course: This is a 70-year-old female admitted to the hospital with acute respiratory failure with hypoxia. She was found to have bilateral pleural effusions. She wonder went thoracentesis with Radiology who drained 1400 cc of clear, serous fluid. Lab studies are currently pending according to the laboratory at this time studies have been sent out to [facility] for further analysis. Given description infectious etiologies for that much fluid are unlikely. She was recently diagnosed with a bacterial pneumonia and patient can continue outpatient antibiotics as previously prescribed by her PCP. Following her procedure she was no longer requiring supplemental oxygen. She improved much more quickly than expected. The patient also had hyponatremia with a sodium level of 125. This improved with IV fluids. Her urine sodium was found to be 16 indicative of a hypovolemic state. I recommend that she increase her intake through her feeding tube to help with her hyponatremia, she may also decrease free water intake as well. She has scheduled follow up tomorrow with the [facility]. Time Spent with Patient Time spent: Greater than 30 minutes Exam Vital Signs (past 8 hours): - 02/28/21 05:00 02/28/21 07:45 02/28/21 08:53 Temperature 97.2 F L 97.3 F L Pulse Rate 98 H 102 H 108 H Respiratory Rate 20 18 18 Blood Pressure 161/80 H 138/73 Pulse Oximetry 98 99 97 Fraction of Inspired Oxygen 35 Oxygen Delivery Method Humidification,Trach Collar Oxygen Flow Rate 10 Narrative Exam Narrative: Frail ill appearing female lying in bed HENMT Other:?NC/Scar on the front center forehead Trach in place Eyes Other:?sclera anicteric, no conjunctival ejection Neck Other:?trach collar in place, no erythema or induration Resp Other:?cta bilaterally other than diminished b/l breath sounds in the lung base. Cardio Other:?RRR nl Sl S2 GI Other:?abd: soft/ non tender/ non distended Skin Other:?no edema Neuro Other:?patient is awake and alert, she responds appropriately Strength is symmetric and equal Sensation grossly intact Extrem Other:?lower extremities warm, no edema Objective Labs Result Diagrams: 02/28/21 08:16 02/28/21 08:16 Labs: Laboratory Results - last 24 hr 02/27/21 02/27/21 02/28/21 08:30 11:29 02:00 WBC RBC Hgb Hct MCV MCH MCHC RDW Plt Count Neut % (Auto) Lymph % (Auto) Petroleum % (Auto) Eos % (Auto) Baso % (Auto) Neut # (Auto) Lymph # (Auto) Petroleum # (Auto) Eos # (Auto) Baso # (Auto) Sodium Potassium Chloride Carbon Dioxide BUN Creatinine Estimated GFR BUN/Creatinine Ratio Glucose Calcium NT-Pro-B Natriuret Pep 795 H Procalcitonin 0.16 Ur Random Sodium 16 L SARS-CoV-2 (PCR) Negative 02/28/21 02/28/21 08:16 08:16 WBC 8.5 RBC 4.25 Hgb 12.9 Hct 38.2 MCV 89.7 MCH 30.3 MCHC 33.8 RDW 14.0 Plt Count 449 H Neut % (Auto) 95.6 H Lymph % (Auto) 2.1 L Petroleum % (Auto) 2.0 L Eos % (Auto) 0.1 L Baso % (Auto) 0.2 Neut # (Auto) 8100 H Lymph # (Auto) 200 L Petroleum # (Auto) 200 Eos # (Auto) 0 Baso # (Auto) 0 Sodium 128 L Potassium 5.2 H Chloride 91 L Carbon Dioxide 29 BUN 24 H Creatinine 0.80 Estimated GFR > 60.0 BUN/Creatinine Ratio 30.0 H Glucose 125 H Calcium 8.4 NT-Pro-B Natriuret Pep Procalcitonin Ur Random Sodium SARS-CoV-2 (PCR) [facility] Medical History Abscess of left lung with pneumonia Cataracts, bilateral (~2010) Chicken pox (~1994) COPD (chronic obstructive pulmonary disease) (~2013) Endometriosis (~1984) 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) History of radiation therapy (~1992) Horners syndrome (~2010) Hypothyroid Kidney disease (~1974) Measles (~1952) Migraines MRSA (methicillin resistant Staphylococcus aureus) (~2015) Mumps (~1956) Peripheral neuropathy (~2010) Pituitary adenoma Rubella (~1959) Seizures (~1958) Thyroid cancer (~1969) Vocal cord paralysis (~2010) Surgical History Anesthesia History of foot surgery (~2013) History of neck surgery (~2009) History of surgery (~2010) History of thyroid surgery (~1982) History of thyroidectomy (~1969) Family History Father Cancer Diabetes mellitus History of heart disease Hyperlipidemia Hypertension Polycythemia vera Mother High cholesterol History of heart disease Sister Age: 75 High cholesterol Sister High cholesterol Mental health problem Sister Asthma Grandmother Parkinson's disease Grandfather Cancer Social History household members: spouse and caregiver Smoking Status: Never smoker alcohol intake: never Discharge Plan Discharge Plan Patient Disposition: Home Provider Discharge Comment: You were admitted to the hospital with fluid in your lung. The exact nature of the fluid is not known, labs were sent to an outside facility and will return later. You no longer are needing oxygen, but fluid may recur and there is still some fluid on the L. Please follow up with oncologists tomorrow to see if there is anything else that can be done as an outpatient. No changes to the antibiotics prescribed by Dr. Wilkins. Sodium level was slightly low but improved, this appears to be due to slight dehydration. Consider increasing fluid intake for a couple days at home. Discharge orders & Medications Prescriptions: Continued famotidine 20 mg tablet 20 mg feeding tube DAILY Qty: 90 RF: 3 imipramine HCl 50 mg tablet 50 mg feeding tube BEDTIME Qty: 90 RF: 3 meclizine 25 mg tablet 25 mg Feeding Tube Q6H PRN (Reason: Dizziness) Qty: 240 RF: 3 nystatin 100,000 unit/gram cream 1 applic topical DAILY Qty: 30 RF: 11 nystatin 100,000 unit/mL suspension 5 ml PO BEDTIME Qty: 250 RF: 11 ondansetron 4 mg tablet,disintegrating 4 mg Feeding Tube TID PRN (Reason: Nausea) Qty: 270 RF: 3 silver nitrate applicators 75-25 % stick 1 applic TOP 2XW Qty: 100 RF: 11 sodium chloride 0.9 % (flush) Syringe 20 ml IV .COMPLEX PRN (Reason: IV line flush) Qty: 5400 RF: 3 (DME) DISABLED PARKING [employer]MIT See Rx Instructions .ROUTE .MEDSUPPLY Qty: 1 RF: 0 venlafaxine 75 mg tablet 75 mg feeding tube TID Qty: 270 RF: 3 Hold Instructions: Transition to Cymbalta cetirizine [Wal-Zyr (cetirizine)] 1 mg/mL solution 5 mg feeding tube Q12H PRN (Reason: Secretions) Qty: 960 RF: 3 clobetasol 0.05 % cream 1 applic topical DAILY Qty: 60 RF: 3 cyclobenzaprine 5 mg tablet 5 mg feeding tube TIDP PRN (Reason: muscle spasm) Qty: 270 RF: 3 ferrous sulfate 220 mg (44 mg iron)/5 mL elixir 330 mg feeding tube TID Qty: 2025 RF: 3 gabapentin 250 mg/5 mL solution 900 mg Feeding Tube BID Qty: 3240 RF: 11 guaifenesin 200 mg/5 mL liquid 200 mg PO BID Qty: 946 RF: 3 hydrocortisone 2.5 % cream 1 applic TOPICAL PRN PRN (Reason: Rash) Qty: 90 RF: 3 ipratropium bromide 42 mcg (0.06 %) spray,non-aerosol 2 spray INTRANASAL TID Qty: 90 RF: 3 metoprolol tartrate 25 mg tablet 37.5 mg PO BID Qty: 270 RF: 3 TobraDex 0.3-0.1 % ointment 1 applic .ROUTE .COMPLEX Qty: 10.5 RF: 3 clonazepam 0.5 mg tablet,disintegrating 0.5 mg Feeding Tube TID Qty: 270 RF: 0 (DME) Sodium Bicarbonate Inj 8.4% See Rx Instructions .Route .MEDSUPPLY Qty: 300 RF: 4 (DME) Innospire Go Nebulizer Misc See Rx Instructions .Route Qty: 1 RF: 0 diazepam 5 mg/mL concentrate 2.5 mg PO BID PRN (Reason: anxiety, muscle spasm) Qty: 30 RF: 4 albuterol sulfate 2.5 mg /3 mL (0.083 %) solution for nebulization 2.5 mg inhalation TID PRN (Reason: shortness of breath or wheezing) Qty: 75 RF: 0 levofloxacin 250 mg/10 mL solution 750 mg PO DAILY 10 Days Qty: 300 RF: 0 levothyroxine 200 mcg tablet 288 mcg Feeding Tube DAILY Qty: 90 RF: 3 fentanyl 25 mcg/hr patch 72 hour 1 patch transdermal Q72H Qty: 10 RF: 0 duloxetine 30 mg capsule, delayed rel sprinkle 30 mg PO DAILY Qty: 15 RF: 0 acetaminophen 500 mg/15 mL liquid 1,000 mg PO Q6H PRN (Reason: Headache) RF: 0 ascorbic acid (vitamin C) 1,000 mg tablet 500 mg Feeding Tube DAILY RF: 0 ibuprofen [Children's Advil] 100 mg/5 mL suspension 400 mg Feeding Tube Q4H PRN (Reason: Headache) RF: 0 glycerin (adult) Suppository 1 supp GA Q3D PRN (Reason: Constipation) RF: 0 sennosides [Senna Laxative] 8.6 mg Tablet 8.6 mg PO BEDTIME RF: 0 polyethylene glycol 3350 [Miralax] 17 gram Powder In Packet 17 g PO DAILY PRN (Reason: Constipation) RF: 0 chlorpheniramine-pseudoephed 2-30 mg/5 mL Liquid 30 ml feeding tube QPM RF: 0 Follow up/Referrals: Armani Wilkins MD [Primary Care Provider] - Diet/Activity/Treatments Diet: Diet as Tolerated Diet comment: Please increase fluid intake for a few days, your sodium was slightly low. Activity: As tolerated Visit Report/Discharge Packet Instructions: Pleural Effusion, DI for Thoracentesis Discharge Data Primary Care Provider: Armani Wilkins Quality VTE Deep Vein Thrombosis/Pulmonary Embolism Present on Admission: No
[2021-02-28] MEDS: INFLUENZA VACCINE QIV 0.5 ML SYRINGE IM (11:28)
--- NOTE | 2021-02-28 12:03 | PC.NURSE ---
late note: pt 100%RA. LS dim. denied any dizziness or light headedness. generalize pain 5/10, gave percocet via peg tube. denied n/v. cms+. PIV SL. flu shot given ok with provider. has gotten flu shot last flu season with no reactions. PIV then dc'd. discharge summary given to patient and spouse.
--- NOTE | 2021-02-28 12:31 | CM.DANOTE ---
Patient is a 70 yo female who was admitted on 02/27/21 for trach suctioning. Pt has [facility] and [facility] for insurance and her PCP is Dr. Armani Wilkins. EMR was reviewed. Per MD, pt with hx of CA and likely mets to the lungs and on chronic tube feeds at baseline with PEG and admitted now with Pleural Effusion and had thoracentesis yesterday and pt much improved today. RT to assess for home oxygen but medically stable to d/c home today. SW met bedside with pt and spouse and explained role and they confirm they live in [place], [place] and have nutrition provided by [employer] and pt gets an all natural nutrition they like and pt also has private caregiving through [employer] (?) with caregivers they have loved for the past 6 years. Spouse very attentive and knowledgeable and pt able to participate in discussion but cannot verbally speak but alert and oriented. Pt and spouse very agreeable to d/c home today and spouse will transport and they do not anticipate any SW needs at this time. Plan: Patient to d/c home via spouse POV today and no further SW needs at this time. JANIYA Giang
[2021-03-01 18:04] LABS: Osmolality Urine 344 mOsmol/kg (.)
== END 2021-02-28 11:42 | disposition home or self-care (01) | DRG 186 ==
LOC: ED 22:04 → AC 02-27 00:43
PROVIDERS: Emergency Medicine; Internal Medicine; Admitting Provider Internal Medicine; Emergency Provider Emergency Medicine; Family Provider Student in an Organized Health Care Education/Training Program; PCP Student in an Organized Health Care Education/Training Program; Referring Provider Emergency Medicine; Visit Provider Internal Medicine
DX: J90 Pleural effusion, not elsewhere classified (principal); J96.01 Acute respiratory failure with hypoxia; J15.9 Unspecified bacterial pneumonia; E87.1 Hypo-osmolality and hyponatremia; J38.00 Paralysis of vocal cords and larynx, unspecified; G90.2 Horner's syndrome; Z85.850 Personal history of malignant neoplasm of thyroid; G89.29 Other chronic pain; D64.9 Anemia, unspecified; I10 Essential (primary) hypertension; G40.909 Epilepsy, unspecified, not intractable, without status epilepticus; J44.9 Chronic obstructive pulmonary disease, unspecified; E03.9 Hypothyroidism, unspecified; Z20.822 Contact with and (suspected) exposure to COVID-19; Z93.0 Tracheostomy status; Z23 Encounter for immunization; R05.9 Cough, unspecified
CPT/HCPCS: 32555; 36415; 71045; 71046; 71260; 74019; 74177; 80048; 80053; 83880; 83935; 84145; 84300; 85025; 85610; 87070; 87077; 87186; 87205; 87635; 90471; 90656; 94640; 94762; 96361; 96365; 96366; 99284; C9803; A9270; J1956; J2930; J7613; Q2038; Q9967

== ENCOUNTER 2021-03-03 20:06 | Inpatient (IN) | payer MEDICARE, OTHER, MEDICAID, SELFPAY ==
[2021-02-27 12:46] VITALS: BMI 24.2
[2021-03-03] VITALS (12 sets, daily range): BP systolic 123–156; BP diastolic 64–71; PULSE 72–95; RESP 20; TEMP 36.4; O2SAT 87–97
--- NOTE | 2021-03-03 20:37 | DI.RAD.S_ITS ---
PROCEDURE: XR ACUTE ABDOMEN SERIES INDICATIONS: significant constipation TECHNIQUE: One view chest and two views of the abdomen were acquired. COMPARISON: [facility], CR, XR CHEST 1V, 02/27/2021, 15:08. FINDINGS: Surgical changes and devices: Postsurgical changes are again seen in bilateral lower neck soft tissues and right axilla.. Possible postsurgical changes in left side of abdomen are seen. Chest: There is suggestion of small bilateral pleural effusion and bibasilar atelectasis. Persistent opacity over left hemithorax is not significantly changed. There is a small right apical pneumothorax. No gross left-sided pneumothorax. Abdomen: There is large amount of fecal matter throughout the colon extending to rectum. No gross free air is seen. No suspicious calcifications. Visualized solid organ contours appear normal. Bones: No suspicious bony lesions. IMPRESSION: 1. Significant constipation. No gross free air. 2. Persistent hazy opacity over left hemithorax not significantly changed from prior study. Small right apically pneumothorax. Suggestion of trace bilateral pleural effusion and bibasilar atelectasis. No gross left-sided pneumothorax. Dictated by: Michael Tapia M.D. on 03/03/2021 at 21:06 Approved by: Michael Tapia M.D. on 03/03/2021 at 21:10
--- NOTE | 2021-03-03 23:00 | PC.NURSE ---
stand by and assistance with manual dis impaction by Dr Mendoza. Patient tolerated well, moderate amount of toya light stool removed.
[2021-03-03] MEDS: BISACODYL 10 MG SUPP PR (23:03)
[2021-03-04] VITALS (19 sets, daily range): BP systolic 128–178; BP diastolic 59–84; PULSE 88–103; RESP 16–28; TEMP 36.3–36.7; O2SAT 88–100; BMI 17.5
--- NOTE | 2021-03-04 00:02 | PC.NURSE ---
Patient at bedside, suctioned patient with home supplies. Pt tolerated well, small amount of thick mucous removed.
--- NOTE | 2021-03-04 01:08 | PC.NURSE ---
Addendum entered by Ann Galeano R.N. 03/04/21 01:09: back to baseline low to mid 90's. Patient's reports that home oxygen was mentioned at last PCP appointment but they didn't feel her numbers were low enough. Original Note: Patient trailed off oxygen, sats dropped down into low 80's. Patient placed back on 2LNC and increased back to patients baseling
--- NOTE | 2021-03-04 01:13 | ED.ABDPAIN ---
HPI - Abdominal Pain General Chief Complaint: Abdominal Pain Stated Complaint: SUPER CONSTIPATION Time Seen by Provider: 03/03/21 20:18 Source: patient and family Mode of arrival: Ambulatory History of Present Illness HPI narrative: 70-year-old female nonsmoker with history of vocal cord paralysis, peripheral neuropathy, Pedro syndrome, COPD, thyroid cancer presents with a chief complaint of increasing abdominal discomfort and difficulty with bowel movements over at least the past few days. They been trying stool softeners, glycerin suppository and even an enema at home with little to no relief. She has had increasing pain with any attempts at feeding through her feeding to. She denies nausea or vomiting. She has had no fever or chills. She was recently told that she is not a candidate for chemotherapy due to the advanced nature of her lung cancer and they feel like it likely involves lungs, pleura and nodes. She has not been on oxygen home thus far but the conversation has been initiated with her PCP Related Data Home Medications Medication Instructions Recorded Confirmed ascorbic acid (vitamin C) 1,000 mg 500 mg FEEDING TUBE DAILY tab 01/06/18 02/27/21 tablet ibuprofen 100 mg/5 mL oral 400 mg FEEDING TUBE Q4H PRN ml 01/06/18 02/27/21 suspension (Children's Advil) glycerin (adult) 1 supp LA Q3D PRN 01/05/19 02/27/21 acetaminophen 500 mg/15 mL oral 1,000 mg PO Q6H PRN ml 02/28/20 02/27/21 liquid chlorpheniramine-pseudoephedrine 2 30 ml FEEDING TUBE QPM 02/27/21 02/27/21 mg-30 mg/5 mL oral liquid polyethylene glycol 3350 17 gram 17 g PO DAILY PRN 02/27/21 02/27/21 oral powder packet (Miralax) sennosides 8.6 mg tablet (Senna 8.6 mg PO BEDTIME 02/27/21 02/27/21 Laxative) Previous Rx's Medication Instructions Recorded famotidine 20 mg tablet 20 mg FEEDING TUBE DAILY #90 tab 05/02/20 imipramine HCl 50 mg tablet 50 mg FEEDING TUBE BEDTIME #90 tab 05/02/20 meclizine 25 mg tablet 25 mg FEEDING TUBE Q6H PRN #240 tab 05/02/20 nystatin 100,000 unit/gram topical 1 applic TOPICAL DAILY #30 g 05/02/20 cream nystatin 100,000 unit/mL oral 5 ml PO BEDTIME #250 ml 05/02/20 suspension ondansetron 4 mg disintegrating 4 mg FEEDING TUBE TID PRN #270 tab 05/02/20 tablet silver nitrate applicators 75 %-25 1 applic TOP 2XW #100 each 05/02/20 % topical stick sodium chloride 0.9 % (flush) 20 ml IV .COMPLEX PRN #5400 ml 08/02/20 DISABLED PARKING PERMIT #1 ea 09/10/20 venlafaxine 75 mg tablet 75 mg FEEDING TUBE TID #270 tab 10/26/20 cetirizine 1 mg/mL oral solution 5 mg FEEDING TUBE Q12H PRN #960 ml 12/18/20 (Jason (cetirizine)) clobetasol 0.05 % topical cream 1 applic TOPICAL DAILY #60 g 12/18/20 cyclobenzaprine 5 mg tablet 5 mg FEEDING TUBE TIDP PRN #270 tab 12/18/20 ferrous sulfate 220 mg (44 mg 330 mg FEEDING TUBE TID #2025 ml 12/18/20 iron)/5 mL oral elixir gabapentin 250 mg/5 mL oral 900 mg FEEDING TUBE BID #3240 ml 12/18/20 solution guaifenesin 200 mg/5 mL oral liquid 200 mg PO BID #946 ml 12/18/20 hydrocortisone 2.5 % topical cream 1 applic TOPICAL PRN PRN #90 g 12/18/20 ipratropium bromide 42 mcg (0.06 2 spray INTRANASAL TID #90 ml 12/18/20 %) nasal spray metoprolol tartrate 25 mg tablet 37.5 mg PO BID #270 tab 12/18/20 tobramycin-dexamethasone 0.3 %-0.1 1 applic .ROUTE .COMPLEX #10.5 g 12/18/20 % eye ointment (TobraDex) Sodium Bicarbonate Inj 8.4% #300 ea 02/12/21 clonazepam 0.5 mg disintegrating 0.5 mg FEEDING TUBE TID #270 tab 02/12/21 tablet nebulizers (Innospire Go Nebulizer) #1 ea 02/12/21 diazepam 5 mg/mL oral concentrate 2.5 mg PO BID PRN #30 ml 02/19/21 albuterol sulfate 2.5 mg INHALATION TID PRN #75 ml 02/20/21 duloxetine 30 mg capsule,delayed 30 mg PO DAILY #15 cap 02/26/21 release sprinkle fentanyl 25 mcg/hr transdermal 1 patch TRANSDERMAL Q72H #10 ea 02/26/21 patch levofloxacin 250 mg/10 mL oral 750 mg PO DAILY 10 Days #300 ml 02/26/21 solution levothyroxine 200 mcg tablet 288 mcg FEEDING TUBE DAILY #90 tab 02/26/21 Allergies Allergy/AdvReac Type Severity Reaction Status Date / Time amoxicillin [From Augmentin] Allergy Intermediate Severe Verified 02/26/21 11:18 Diarrhea cat dander Allergy Intermediate Verified 02/26/21 11:18 clavulanic acid Allergy Intermediate Severe Verified 02/26/21 11:18 [From Augmentin] Diarrhea Sulfa (Sulfonamide Allergy Unknown Diarrhea Verified 02/27/21 14:46 Antibiotics) Review of Systems Review of Systems Narrative: GENERAL: Denies chills, fatigue, malaise, fever, sweats. HEENT: Denies sinus pain, ear pain, sore throat, difficulty swallowing, dizziness. RESPIRATORY: Denies dyspnea, cough, wheezing, hemoptysis, sputum. CARDIOVASCULAR: Denies chest pain, palpitations, orthopnea, edema, GASTROINTESTINAL: See HP : Denies dysuria, frequency, incontinence, hematuria, urinary retention. MUSCULOSKELETAL: denies weakness, joint pain, or bony pain SKIN: Denies rash, skin lesions, or other NEUROLOGIC: Denies weakness, headache, numbness, change in speech, confusion, seizures, incoordination. PSYCHIATRIC: No concerning psychosocial issues. 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) History of radiation therapy (~1992) Horners syndrome (~2010) Hypothyroid Kidney disease (~1974) Measles (~1952) Migraines MRSA (methicillin resistant Staphylococcus aureus) (~2015) Mumps (~1956) Peripheral neuropathy (~2010) Pituitary adenoma Rubella (~1959) Seizures (~1958) Thyroid cancer (~1969) Vocal cord paralysis (~2010) Surgical History Anesthesia History of foot surgery (~2013) History of neck surgery (~2009) History of surgery (~2010) History of thyroid surgery (~1982) History of thyroidectomy (~1969) Family History Father Cancer Diabetes mellitus History of heart disease Hyperlipidemia Hypertension Polycythemia vera Mother High cholesterol History of heart disease Sister Age: 75 High cholesterol Sister High cholesterol Mental health problem Sister Asthma Grandmother Parkinson's disease Grandfather Cancer Social History household members: spouse and caregiver Smoking Status: Never smoker alcohol intake: never Smoking Status: Never smoker alcohol intake frequency: holidays/special occasions only Substance Use Type: does not use Exam Narrative Exam Narrative: GENERAL: [70] year old patient appears stated age. Thin no obvious significant acute distress HEAD: Atraumatic. Normocephalic. Temporal wasting EYES: Pupils equal round and reactive. Extraocular motions intact. No scleral icterus. No injection or drainage. ENT: Nose without bleeding, purulent drainage. Throat without erythema, tonsillar hypertrophy or exudate. Airway patent. NECK: Trachea midline. Non tender CARDIOVASCULAR: Regular rate and rhythm without murmurs, gallops, or rubs. RESPIRATORY: Decreased breath sounds bilaterally left greater than right with crackles throughout GASTROINTESTINAL: Abdomen soft, minimal tenderness and decreased bowel sounds throughout RECTAL: Moderate amount of firm stool in rectal vault, removed by myself, rectal performed with patient permission and female nursing irrigating pump operator at the bedside EXTREMITIES: No edema or joint tenderness. BACK: Nontender without deformity or crepitance. No flank tenderness. NEURO: AOx3. SKIN: No rash or erythema of visible areas Initial Vital Signs Initial Vital Signs: Vital Signs Temperature 97.5 F L 03/03/21 20:09 Pulse Rate 76 03/03/21 20:09 Respiratory Rate 20 03/03/21 20:09 Blood Pressure 123/64 03/03/21 20:09 Pulse Oximetry 96 03/03/21 20:09 Course Orders Ordered: ED Orders 03/03/21 20:37 XR acute abdomen series Stat 03/04/21 01:25 Basic Metabolic Panel Stat Complete Blood Count AUTO DIFF Stat Troponin & CK Cardiac Panel Stat 03/04/21 01:[address] angio head and neck Stat Urine Drug Screen, Rapid Stat EKG-12 Lead Stat 03/04/21 01:56 Creatinine Urine Random Stat Sodium Urine Random Stat 03/04/21 02:28 COVID19 - ADMIT (SPOOL WORKER swab/PCR) Stat 03/04/21 03:02 Consult to Speech Therapy Evaluate & Treat Sodium Chloride (Normal Saline 0.9%) 1,000 mls @ 150 mls/hr IV CONT CELY Last Admin: 03/04/21 02:35 Dose: 150 mls/hr Documented by: VALENTE Discontinued Medications Bisacodyl (Bisacodyl 10 Mg Supp) 10 mg LA NOW ONE Stop: 03/03/21 23:01 Last Admin: 03/03/21 23:03 Dose: 10 mg Documented by: VALENTE Sodium Biphosphate/Sodium Phosphate (Fleets Enema) 1 each LA NOW ONE Stop: 03/03/21 23:48 Last Admin: 03/04/21 00:02 Dose: Not Given Documented by: VALENTE Reevaluation(s) Reevaluation #1: 0127 -called to see patient as she has developed a blank stare in the absence of any seizure or other stroke-like symptoms. states that she has been doing this off and on since she was admitted in the hospital about 1 week ago. 0130 -call to see patient with right-sided facial droop. Code stroke activated. 0150 - patient back from CT. Facial droop improved though still slightly there, patient is non-verbal due to prior surgeries Vital Signs Vital signs: Vital Signs - 8 hr 03/03/21 20:09 03/03/21 20:21 03/03/21 20:26 Temperature 97.5 F L Pulse Rate 76 73 Respiratory Rate 20 Blood Pressure 123/64 147/68 H Pulse Oximetry 96 91 03/03/21 20:30 03/03/21 21:01 03/03/21 21:30 Temperature Pulse Rate 72 78 73 Respiratory Rate Blood Pressure Pulse Oximetry 87 L 95 92 03/03/21 22:00 03/03/21 22:30 03/03/21 23:00 Temperature Pulse Rate 75 81 84 Respiratory Rate Blood Pressure Pulse Oximetry 91 97 97 03/03/21 23:30 03/03/21 23:47 03/03/21 23:59 Temperature Pulse Rate 83 95 H Respiratory Rate Blood Pressure 156/71 H Pulse Oximetry 95 94 95 03/04/21 00:00 03/04/21 00:01 03/04/21 00:30 Temperature Pulse Rate 93 H Respiratory Rate Blood Pressure 178/76 H Pulse Oximetry 97 90 L 03/04/21 01:00 03/04/21 01:30 03/04/21 01:54 Temperature Pulse Rate 88 93 H 95 H Respiratory Rate Blood Pressure 141/70 H 164/70 H Pulse Oximetry 93 88 L 95 03/04/21 02:00 Temperature Pulse Rate 94 H Respiratory Rate Blood Pressure 141/84 H Pulse Oximetry 92 MDM - Abdominal Pain Lab Data Result diagrams: 03/04/21 01:25 03/04/21 01:25 Labs: Lab Results 03/04/21 03/04/21 03/04/21 Range/Units 01:25 01:25 01:25 WBC 10.7 (4.5-11.0) X10^3/uL RBC 3.92 L (4.0-5.2) X10^6/uL Hgb 11.9 L (12.0-16.0) g/dL Hct 35.2 L (36-46) % MCV 89.7 (80-100) fL MCH 30.4 (26-34) PG MCHC 33.9 (30-36) % RDW 14.3 (11.6-14.8) % Plt Count 422 H (150-400) X10^3/uL Neut % (Auto) 90.1 H (50-75) % Lymph % (Auto) 2.3 L (25-40) % [place] % (Auto) 5.3 (3-14) % Eos % (Auto) 2.1 (2-4) % Baso % (Auto) 0.2 (0-2) % Neut # (Auto) 9700 H (2661-1183) /uL Lymph # (Auto) 200 L (6080-3805) /uL [place] # (Auto) 600 (0-900) /uL Eos # (Auto) 200 (0-450) /uL Baso # (Auto) 0 (0-100) /uL Sodium 124 L (137-145) mmol/L Potassium 4.7 (3.4-5.1) mmol/L Chloride 87 L (98-107) mmol/L Carbon Dioxide 28 (22-32) mmol/L BUN 26 H (7-17) mg/dL Creatinine 0.86 (0.52-1.04) mg/dL Estimated GFR > 60.0 (>60) mL/min BUN/Creatinine Ratio 30.2 H (6-22) Glucose 101 (80-110) mg/dL Calcium 7.9 L (8.4-10.2) mg/dL Total Creatine Kinase 46 (30-135) U/L CK-MB (CK-2) TNP CK-MB (CK-2) Rel Index TNP Troponin I < 0.012 (0.01-0.034) ng/mL Point of care testing: Point of Care Testing Glucose POC 103 Imaging Data Abdominal x-ray: Radiologist's Impression: Aimee Day 70 F [address] [id number] ReportSigned Patient: Aimee Day AMR#: [id number]: 1950cct:[id number]/Sex: 70 / FDate of Service: 03/03/21Loc: EDAccession Number: [id number] Procedure: XR acute abdomen series Ordering Provider: Galindo Mendoza D.O. PROCEDURE: XR ACUTE ABDOMEN SERIES INDICATIONS: significant constipation TECHNIQUE: One view chest and two views of the abdomen were acquired. COMPARISON: [facility], , XR CHEST 1V, 02/27/2021, 15:08. FINDINGS: Surgical changes and devices: Postsurgical changes are again seen in bilateral lower neck soft tissues and right axilla.. Possible postsurgical changes in left side of abdomen are seen. Chest: There is suggestion of small bilateral pleural effusion and bibasilar atelectasis. Persistent opacity over left hemithorax is not significantly changed. There is a small right apical pneumothorax. No gross left-sided pneumothorax. Abdomen: There is large amount of fecal matter throughout the colon extending to rectum. No gross free air is seen. No suspicious calcifications. Visualized solid organ contours appear normal. Bones: No suspicious bony lesions. IMPRESSION: 1. Significant constipation. No gross free air. 2. Persistent hazy opacity over left hemithorax not significantly changed from prior study. Small right apically pneumothorax. Suggestion of trace bilateral pleural effusion and bibasilar atelectasis. No gross left-sided pneumothorax. Dictated by: Michael Tapia M.D. on 03/03/2021 at 21:06 Approved by: Michael Tapia M.D. on 03/03/2021 at 21:[address] [facility] Narrative Medical decision making narrative: After combination of manual disimpaction, suppository and enema patient had a moderate-sized bowel movement with improvement in symptoms. The patient has had pulse ox in the upper 80s for her stay and is requiring oxygen by nasal cannula at 2 L to stay in the 90s. There is a small apical PTX, but not large enough to require chest tube, discussed with gen surgery, they share this opinion. Patient had a brief neuro episode with R sided facial droop with rapid improvement. I did discuss the risk/benefit of TPA with and we share the opinion that with minimal symptoms already improving in apatient non-verbal at baseline that there is no indication for TPA. Discharge Plan Departure Patient Disposition: Admitted As Inpatient Clinical Impression: Brain TIA, Pleural effusion, Acute hyponatremia Admit Date/Time: 03/04/21 03:10 Admit Provider: Rachel Gupta
--- NOTE | 2021-03-04 01:27 | DI.CT.S_ITS ---
PROCEDURE: CT ANGIO HEAD AND NECK INDICATIONS: confusion, R sided facial weakness TECHNIQUE: 8After the administration of intravenous contrast, 1 mm thick sections acquired from the aortic arch through the [place] of [place]. Post-contrast 4.5 mm thick sections then re-acquired from the foramen magnum to the vertex. 3-dimensional yyrrfnm-eoupwgrkc-fcrxgsfafu (MIP) and/or volume rendering reformats were acquired of the central intracranial vasculature and neck separately. COMPARISON: [facility], CR, XR CHEST 1V, 02/27/2021, 15:08. [facility], CT, CT STROKE, 03/04/2021, 1:32. [facility], CT, CT CHEST ABD PEL W CON, 02/26/2021, 22:50. FINDINGS: Image quality: Excellent. BRAIN: CSF spaces: Ventricles are normal in size and shape. Basal cisterns are patent. No extra-axial fluid collections. Brain: No midline shift. No intracranial bleeds or masses. Garcia-white matter interface appears intact. Skull and face: Calvarium and facial bones appear intact, without suspicious lesions. Orbits appear normal. Sinuses: Sinuses and mastoids are clear. HEAD CT ANGIOGRAPHY: Anterior circulation: Intracranial internal carotid arteries are normal in size and flow. The flow within the paired anterior cerebral arteries is normal and symmetric. The flow within the middle cerebral arteries is normal and symmetric. The anterior communicating artery is seen. No aneurysms are seen. Posterior circulation: Visualized portions of the vertebral arteries demonstrate normal caliber, and join to form a normal appearing basilar artery. Flow within the posterior cerebral arteries is normal and symmetric. No aneurysms are seen. NECK CT ANGIOGRAPHY: Carotid system: The great vessels demonstrate a conventional anatomy as they arise from the aortic arch. There is an approximately 30% proximal left common carotid artery stenosis. The bifurcation regions are both widely patent. The internal carotid arteries demonstrate mild bilateral proximal stenosis, less than 50%. Posterior circulation: The origins of the vertebral arteries both appear widely patent. The more superior extracranial portions of both vertebral arteries also demonstrate normal courses and calibers. They join to form a normal appearing basilar artery. Soft tissues: Visualized neck soft tissues demonstrate no suspicious abnormalities. There is a minimal right apically pneumothorax. This was present on a previous post thoracentesis chest x-ray from 5 days ago. There is right apical pleural parenchymal scarring. There is at least a moderate right pleural effusion. Again noted is a left apical multiloculated pleural effusion. 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 Bones: No suspicious bony lesions. Visualized cervical spine appears normally aligned. IMPRESSION: 1. No evidence acute stroke, hemorrhage, or mass. 2. Unremarkable CTA head. No stenosis, aneurysm, occlusion, or focal filling defect. 3. 30% left common carotid artery stenosis, mild bilateral internal carotid artery stenosis. 4. Bilateral pleural effusions. The left pleural effusion is multiloculated. 5. Minimal right apical pneumothorax, present after a previous thoracentesis from 5 days ago. Comment: Final report is concordant with preliminary interpretation provided by [facility]. Any quantitative measurements of stenosis were performed using NASCET criteria. Dictated by: Raymundo Schwab M.D. on 03/04/2021 at 8:06 Approved by: Raymundo Schwab M.D. on 03/04/2021 at 8:35
--- NOTE | 2021-03-04 01:27 | DI.CT.S_ITS ---
PROCEDURE: CT STROKE INDICATIONS: confusion, R sided facial weakness TECHNIQUE: Noncontrast 4.5 mm thick angled axial sections acquired from the foramen magnum to the vertex, with coronal reformats. For radiation dose reduction, the following was used: automated exposure control, adjustment of mA and/or kV according to patient size. COMPARISON: [facility], CT, CT HEAD/BRAIN WO CON, 01/18/2021, 3:28. FINDINGS: Image quality: Excellent. CSF spaces: Basal cisterns are patent. No extra-axial fluid collections. The ventricles are symmetric in size and shape. Brain: No intracranial bleeds or masses. There is cerebral volume loss for age, with resultant ventricular and sulcal prominence. There are periventricular and deep white matter chronic small vessel ischemic changes. There is intracranial internal carotid artery atherosclerosis. Stable vascular densities in the bilateral MCAs, right more prominent than the left. Skull and face: Calvarium and visualized facial bones appear intact, without suspicious lesions. Sinuses: Visualized sinuses and mastoids are clear. IMPRESSION: 1. CT head without acute intracranial abnormalities or acute calvarial fractures. 2. Stable age-related senescent changes and sequela of chronic small vessel ischemic disease. Findings were discussed telephonically with Dr. Mendoza at 0159 hrs. This study fulfills neurological imaging criteria for inclusion or exclusion of acute stroke therapies based on available published neurological guidelines. Dictated by: Neeraj Cabello M.D. on 03/04/2021 at 1:56 Approved by: Neeraj Cabello M.D. on 03/04/2021 at 2:01
[2021-03-04 01:38] LABS: Add Manual Diff / Slide Review NO; Basophils Absolute Auto 0 /uL (0-100); Basophils Percent Auto 0.2 % (0-2); Eosinophils Absolute Auto 200 /uL (0-450); Eosinophils Percent Auto 2.1 % (2-4); Hematocrit 35.2 % (36-46); Hemoglobin 11.9 g/dL (12.0-16.0); Lymphocytes Absolute Auto 200 /uL (1100-4500); Lymphocytes Percent Auto 2.3 % (25-40); Mean Corpuscular HGB Conc 33.9 % (30-36); Mean Corpuscular Hemoglobin 30.4 PG (26-34); Mean Corpuscular Volume 89.7 fL (80-100); Monocytes Absolute Auto 600 /uL (0-900); Monocytes Percent Auto 5.3 % (3-14); Neutrophils Absolute Auto 9700 /uL (1500-7000); Neutrophils Percent Auto 90.1 % (50-75); Platelet Count 422 X10^3/uL (150-400); Red Blood Cell Count 3.92 X10^6/uL (4.0-5.2); Red Cell Distribution Width 14.3 % (11.6-14.8); White Blood Cell Count 10.7 X10^3/uL (4.5-11.0)
[2021-03-04 01:50] LABS: BUN Creatinine Ratio 30.2 (6-22); Blood Urea Nitrogen 26 mg/dL (7-17); Calcium 7.9 mg/dL (8.4-10.2); Carbon Dioxide 28 mmol/L (22-32); Chloride 87 mmol/L (98-107); Estimated Glomerular Filt Rate > 60.0 mL/min (>60); Glucose 101 mg/dL (80-110); HEMOLYSIS < 15 (0-50); Potassium 4.7 mmol/L (3.4-5.1); Sodium 124 mmol/L (137-145)
[2021-03-04 02:04] LABS: Creatine Kinase 46 U/L (30-135)
[2021-03-04 02:17] LABS: Troponin I < 0.012 ng/mL (0.01-0.034)
--- NOTE | 2021-03-04 02:20 | PC.NURSE ---
Addendum entered by Ann Galeano R.N. 03/04/21 02:23: 0120 time of events Original Note: Patient continued to have complaints of dizziness, upon entering room patient had blank stare, not blinking and delayed response to verbal stimulation. Dr Mendoza called to bedside, IV started. Code Stroke activated. Patient did not tolerate lying flat well, squeezes hand to confirm dizziness is bad. Non verbal and facial droop resolved by time we returned to room from CT. Patient grimacing, squeezes hand to confirm stomach hurts. Placed patient on bedpan, gas expelled no BM.
[2021-03-04] MEDS: SODIUM CHLORIDE 0.9% 1,000 ML 150 ML IV (02:35)
--- NOTE | 2021-03-04 03:01 | PC.NURSE ---
Patient at baseline minimal verbal communication, trach in place. History of vocal cord paralysis.
--- NOTE | 2021-03-04 03:02 | PC.NURSE ---
Patient require suction of secretions at times. Non verbal, has G Tube
[2021-03-04 03:36] LABS: COVID19 - ADMIT (NP swab/PCR) Negative (Negative)
--- NOTE | 2021-03-04 04:30 | RT ---
Pt arrived in room 221. Placed pt on 5 LPM and 28% FiO2 heated aerosol/trach collar per home regimen according to . Pt is tolerating trach collar. Per , pt takes albuterol 3-4 times per day as needed. Recommending home SVN regimen. Pt has 2 trachs at bedside for emergencies: #4.0 mm Shiley cuffed trach, #6.0 Shiley cuffed trach. also has extra Dooley T-tube at bedside as well.
[2021-03-04] MEDS: SODIUM CHLORIDE 0.9% 1,000 ML 100 ML IV ×2 (06:22→17:26)
[2021-03-04] MEDS: LEVOTHYROXINE 88 MCG TABLET TUBE (06:31)
[2021-03-04] MEDS: LEVOTHYROXINE 100 MCG TABLET 200 MCG TUBE (06:31)
[2021-03-04] MEDS: ONDANSETRON 4 MG/2 ML INJ IV (06:31)
[2021-03-04] MEDS: fentaNYL 25 MCG/PATCH TOP (06:32)
--- NOTE | 2021-03-04 06:40 | P.HP_ITS ---
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 She has a tracheostomy, and feeding tube. Per the emergency department provider she had been constipated for number of days despite having enemas and attempts were done in the emergency department to disimpact her which were finally successful. After they completed that procedure staff called in the emergency department provider as she had developed a blank stare which not appear to be seizure. Her told the ED provider that she has been doing this off and on since she was admitted to the hospital 1 week ago. At 1:30 a.m. she developed a right-sided facial droop and a code stroke was activated. At 1:50 a.m. the facial droop had improved however was still present. The patient is nonverbal due to surgeries on her neck. Emergency department requested that the patient be admitted for further stroke rule out as she was considered to be a full code at that time. They also were concerned about her sodium which was 124. And they were also concerned with her hypoxemia with oxygen requiring 4 L. Patient is on able to provide a history or a review of systems. Much of the information about her symptoms are provided by her . On February 27 the patient was admitted for a very similar presentation with having a low sodium of 125. At that time she had abdominal discomfort with concerned that the tracheal stent might be clogged. At that time she was hypoxic. She underwent thoracentesis at that time under Interventional Radiology who drained 400 cc of clear serous fluid and was treated for bacterial pneumonia and discharged on antibiotics at that time. She was hydrated with IV fluids and discharged on the next day. Noncontrast CT ruled out any acute intracranial abnormalities or acute [place] Ricky fractures. Head and neck CTA was reported to me to be negative and the final report is pending. Chest and abdomen x-ray to evaluate the extent of her constipation did indicate that she had a small left hemithorax that had not been significantly changed from prior study. She has a small right apical pneumothorax. On February 28 she had undergone a thoracentesis of which 1400 cc were drained. Decision not to drain the other lung was made due to her metastasis. Patient is afebrile, blood pressure 128/59, heart rate 94, respiratory rate 28, she is at 5 L with an FiO2 of 28, she weighs 52.3 kg with a BMI of 17.5. She is mildly anemic with a hemoglobin of 11.9 and hematocrit of 35.2 platelet count is 422 sodium was 124 BUN 26, calcium 7.9, urine sodium and creatinine are pending, COVID-19 PCR is negative. 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) History of radiation therapy (~1992) Horners syndrome (~2010) Hypothyroid Kidney disease (~1974) Measles (~1952) Migraines MRSA (methicillin resistant Staphylococcus aureus) (~2015) Mumps (~1956) Peripheral neuropathy (~2010) Pituitary adenoma Rubella (~1959) Seizures (~1958) Thyroid cancer (~1969) Vocal cord paralysis (~2010) Surgical History Anesthesia History of foot surgery (~2013) History of neck surgery (~2009) History of surgery (~2010) History of thyroid surgery (~1982) History of thyroidectomy (~1969) Family & Social History Family History Father Cancer Diabetes mellitus History of heart disease Hyperlipidemia Hypertension Polycythemia vera Mother High cholesterol History of heart disease Sister Age: 75 High cholesterol Sister High cholesterol Mental health problem Sister Asthma Grandmother Parkinson's disease Grandfather Cancer Social History: household members spouse,caregiver Tobacco & Substance use: Smoking Status Never smoker alcohol intake never alcohol intake frequency holiday/special occasion Substance Use Type does not use Meds Home Medications and Allergies Home Medications Medication Instructions Recorded Confirmed Type ascorbic acid (vitamin C) 1,000 mg 500 mg FEEDING TUBE DAILY tab 01/06/18 02/27/21 History tablet ibuprofen 100 mg/5 mL oral 400 mg FEEDING TUBE Q4H PRN ml 01/06/18 02/27/21 History suspension (Children's Advil) glycerin (adult) 1 supp WV Q3D PRN 01/05/19 02/27/21 History acetaminophen 500 mg/15 mL oral 1,000 mg PO Q6H PRN ml 02/28/20 02/27/21 History liquid famotidine 20 mg tablet 20 mg FEEDING TUBE DAILY #90 tab 05/02/20 02/27/21 Rx imipramine HCl 50 mg tablet 50 mg FEEDING TUBE BEDTIME #90 tab 05/02/20 02/27/21 Rx meclizine 25 mg tablet 25 mg FEEDING TUBE Q6H PRN #240 tab 05/02/20 02/27/21 Rx nystatin 100,000 unit/gram topical 1 applic TOPICAL DAILY #30 g 05/02/20 02/27/21 Rx cream nystatin 100,000 unit/mL oral 5 ml PO BEDTIME #250 ml 05/02/20 02/27/21 Rx suspension ondansetron 4 mg disintegrating 4 mg FEEDING TUBE TID PRN #270 tab 05/02/20 02/27/21 Rx tablet silver nitrate applicators 75 %-25 1 applic TOP 2XW #100 each 05/02/20 02/27/21 Rx % topical stick sodium chloride 0.9 % (flush) 20 ml IV .COMPLEX PRN #5400 ml 08/02/20 02/27/21 Rx DISABLED PARKING PERMIT #1 ea 09/10/20 02/27/21 Rx venlafaxine 75 mg tablet 75 mg FEEDING TUBE TID #270 tab 10/26/20 02/27/21 Rx cetirizine 1 mg/mL oral solution 5 mg FEEDING TUBE Q12H PRN #960 ml 12/18/20 02/27/21 Rx (Wal-Zyr (cetirizine)) clobetasol 0.05 % topical cream 1 applic TOPICAL DAILY #60 g 12/18/20 02/27/21 Rx cyclobenzaprine 5 mg tablet 5 mg FEEDING TUBE TIDP PRN #270 tab 12/18/20 02/27/21 Rx ferrous sulfate 220 mg (44 mg 330 mg FEEDING TUBE TID #2025 ml 12/18/20 02/27/21 Rx iron)/5 mL oral elixir gabapentin 250 mg/5 mL oral 900 mg FEEDING TUBE BID #3240 ml 12/18/20 02/27/21 Rx solution guaifenesin 200 mg/5 mL oral liquid 200 mg PO BID #946 ml 12/18/20 02/27/21 Rx hydrocortisone 2.5 % topical cream 1 applic TOPICAL PRN PRN #90 g 12/18/20 02/27/21 Rx ipratropium bromide 42 mcg (0.06 2 spray INTRANASAL TID #90 ml 12/18/20 02/27/21 Rx %) nasal spray metoprolol tartrate 25 mg tablet 37.5 mg PO BID #270 tab 12/18/20 02/27/21 Rx tobramycin-dexamethasone 0.3 %-0.1 1 applic .ROUTE .COMPLEX #10.5 g 12/18/20 02/27/21 Rx % eye ointment (TobraDex) Sodium Bicarbonate Inj 8.4% #300 ea 02/12/21 02/27/21 Rx clonazepam 0.5 mg disintegrating 0.5 mg FEEDING TUBE TID #270 tab 02/12/21 02/27/21 Rx tablet nebulizers ([employer] Go Nebulizer) #1 ea 02/12/21 02/27/21 Rx diazepam 5 mg/mL oral concentrate 2.5 mg PO BID PRN #30 ml 02/19/21 02/27/21 Rx albuterol sulfate 2.5 mg INHALATION TID PRN #75 ml 02/20/21 02/27/21 Rx duloxetine 30 mg capsule,delayed 30 mg PO DAILY #15 cap 02/26/21 02/27/21 Rx release sprinkle fentanyl 25 mcg/hr transdermal 1 patch TRANSDERMAL Q72H #10 ea 02/26/21 02/27/21 Rx patch levofloxacin 250 mg/10 mL oral 750 mg PO DAILY 10 Days #300 ml 02/26/21 03/04/21 Rx solution levothyroxine 200 mcg tablet 288 mcg FEEDING TUBE DAILY #90 tab 02/26/21 02/27/21 Rx chlorpheniramine-pseudoephedrine 2 30 ml FEEDING TUBE QPM 02/27/21 02/27/21 History mg-30 mg/5 mL oral liquid polyethylene glycol 3350 17 gram 17 g PO DAILY PRN 02/27/21 02/27/21 History oral powder packet (Miralax) sennosides 8.6 mg tablet (Senna 8.6 mg PO BEDTIME 02/27/21 02/27/21 History Laxative) Allergies Allergy/AdvReac Type Severity Reaction Status Date / Time amoxicillin [From Augmentin] Allergy Intermediate Severe Verified 02/26/21 11:18 Diarrhea cat dander Allergy Intermediate Verified 02/26/21 11:18 clavulanic acid Allergy Intermediate Severe Verified 02/26/21 11:18 [From Augmentin] Diarrhea Sulfa (Sulfonamide Allergy Unknown Diarrhea Verified 02/27/21 14:46 Antibiotics) Review of Systems Review of Systems ROS: Yes unobtainable due to endotracheal tube Exam Vital Signs (past 8 hours): - 03/03/21 23:00 03/03/21 23:30 03/03/21 23:47 Temperature Pulse Rate 84 83 95 H Respiratory Rate Blood Pressure 156/71 H Pulse Oximetry 97 95 94 03/03/21 23:59 03/04/21 00:00 03/04/21 00:01 Temperature Pulse Rate 93 H Respiratory Rate Blood Pressure 178/76 H Pulse Oximetry 95 97 03/04/21 00:30 03/04/21 01:00 03/04/21 01:30 Temperature Pulse Rate 88 93 H Respiratory Rate Blood Pressure 141/70 H Pulse Oximetry 90 L 93 88 L 03/04/21 01:54 03/04/21 02:00 03/04/21 02:30 Temperature Pulse Rate 95 H 94 H 89 Respiratory Rate Blood Pressure 164/70 H 141/84 H 145/66 H Pulse Oximetry 95 92 88 L 03/04/21 03:00 03/04/21 03:13 03/04/21 03:30 Temperature 98.1 F Pulse Rate 93 H 103 H 93 H Respiratory Rate 28 H Blood Pressure 133/60 149/65 H 128/59 L Pulse Oximetry 95 96 94 Fraction of Inspired Oxygen 28 Oxygen Delivery Method Trach Collar Oxygen Flow Rate 5 Narrative Exam Narrative: Gen: Alert, oriented, thin and very ill-appearing 70 y.o. female, appears very uncomfortable HEENT: normocephalic, atraumatic, left eye conjunctiva appears to have a burst blood vessel, unequal pupil size, sclera non-icteric, oral mucosa dry Neck: supple, full ROM, no JVD, trachea is midline Resp: She has a tracheostomy, Lungs CTA, she appeared to be trying to manipulate the actual oxygen feed mechanism CV: RRR, no murmur or rubs Abd: She has a feeding tube of which the stoma appears normal without inf ection. Soft, non-tender, normoactive BTs Skin: no lesions or rashes, dry and intact Neuro: Alert and oriented X 4 unable to speak except in whispers which today her speech was not intelligible to me Extremities: moves all 4 extremities, is ambulatory, negative Maurizio?s sign Psyche: normal mood and affect. Objective Labs Result Diagrams: 03/04/21 01:25 03/04/21 01:25 Labs: Laboratory Results - last 24 hr 03/04/21 03/04/21 03/04/21 01:25 01:25 01:25 WBC 10.7 RBC 3.92 L Hgb 11.9 L Hct 35.2 L MCV 89.7 MCH 30.4 MCHC 33.9 RDW 14.3 Plt Count 422 H Neut % (Auto) 90.1 H Lymph % (Auto) 2.3 L Tripp % (Auto) 5.3 Eos % (Auto) 2.1 Baso % (Auto) 0.2 Neut # (Auto) 9700 H Lymph # (Auto) 200 L Tripp # (Auto) 600 Eos # (Auto) 200 Baso # (Auto) 0 Sodium 124 L Potassium 4.7 Chloride 87 L Carbon Dioxide 28 BUN 26 H Creatinine 0.86 Estimated GFR > 60.0 BUN/Creatinine Ratio 30.2 H Glucose 101 Calcium 7.9 L Total Creatine Kinase 46 CK-MB (CK-2) TNP CK-MB (CK-2) Rel Index TNP Troponin I < 0.012 SARS-CoV-2 (PCR) 03/04/21 02:28 WBC RBC Hgb Hct MCV MCH MCHC RDW Plt Count Neut % (Auto) Lymph % (Auto) Tripp % (Auto) Eos % (Auto) Baso % (Auto) Neut # (Auto) Lymph # (Auto) Tripp # (Auto) Eos # (Auto) Baso # (Auto) Sodium Potassium Chloride Carbon Dioxide BUN Creatinine Estimated GFR BUN/Creatinine Ratio Glucose Calcium Total Creatine Kinase CK-MB (CK-2) CK-MB (CK-2) Rel Index Troponin I SARS-CoV-2 (PCR) Negative Assessment & Plan Assessment & Plan narrative: Aimee Day is initially admitted for further stroke workup which would have included a MRI and echocardiogram. Given her poor prognosis and her now wanting to have her be DNR/DNI, he would not be prudent to pursue aggressive workup given that it would not exchange operator. I recommend that a day team have portia discussion with the about trying to make her co mfortable with the possibility of having her go into hospice care. 1. Hyponatremia, acute, present on admission * Continue normal saline at 100 mL/hour. 2. Hypoxemia, chronic * Patient normally saturates at about 91% on 4 L * I have requested RT work with the patient on making the appropriate adjust ments for supplemental oxygen 3. TIA versus stroke, acute, present on admission * Discussed whether not to pursue further imaging is the patient is not likely to be a candidate for anti thrombolytics given her current medical conditions. * I recommend that social work have discussion with patient's about end of life goals. He did change her code status to DNR/DNI when in fact he told the emergency department provider prior to his coming to the floor that he she was a full code. She has an advance directive and her chart and her is her DPOA. VTE Prophylaxis: Wells risk score 2.5 Enoxaparin 40 mg subQ once daily Patient is admitted to the inpatient service due to the severity of disease, risks of further disease progression and this stay is expected to exceed 2 midnights. FEN: IV fluids: NS at 100 ml/hour, diet: tube feedings, labs: CBC, C/BMP, liver enzymes, Mag, PT/INR Consultants None Dispo: probable discharge to home Code status: DNR/DNI as discussed with the patient who identifies her as her surrogate and POA. [X] I have utilized all available immediate resources to obtain, update, or review of the patient's current medications COVID-19 COVID-19 status: Negative Result date/Date tested (Pos, Neg/Pending): 03/04/21 Time Spent With Patient Critical Care time: I spent a total of [] minutes of critical care time on this patient's care today; this time is exclusive of procedural time. Scores Wells' Criteria for PE Clinical signs and symptoms of DVT: No PE is #1 Dx or equally likely: No Heart rate > 100: No Immobilization at least 3 days or surg in previous 4 weeks: Yes History of PE or DVT: No Hemoptysis: No Malignancy w/Treatment within 6 months or palliative: Yes Wells' PE Score total: 2.5 Quality MIPS - Admit I confirm the patient?s Advance Care Plan is present, Code status is documented, Surrogate decision maker is in patient?s record [If Yes, STOP here]: Yes MIPS - DC The patient has current or prior documentation of left ventricular ejection fraction (LVEF) less than 40%, or moderate or severely depressed left ventricular systolic function.: No
[2021-03-04 06:55] LABS: UR Morphine/Opiate cutoff 300 Negative (Negative); Ur Creatinine Normal (Normal); Ur Specific Gravity Normal (Normal); Urine Amphetamines Negative (Negative); Urine Barbiturates Negative (Negative); Urine Benzodiazepines Positive (Negative); Urine Cocaine Negative (Negative); Urine MDMA Negative (Negative); Urine Methadone Negative (Negative); Urine Methamphetamines Negative (Negative); Urine Oxycodone Positive (Negative); Urine Phencyclidine Negative (Negative); Urine Tetrahydrocannabinol Negative (Negative); Urine Tricyclic Antidepressant Negative (Negative); Urine pH Normal (Normal)
[2021-03-04 07:13] LABS: Creatinine Urine Random 35.6 mg/dL; Sodium Urine Random 42 mmol/L (30-90)
--- NOTE | 2021-03-04 07:18 | PC.NURSE ---
Report received from ED. Care assumed 0346. Pt. grimacing as though in pain but otherwise minimally responsive. Grimace is assymetrical with right-sided droop. Non-verbal (baseline) with trach. History obtained from spouse, who also seems to be a very attentive caregiver. He left briefly to return home for meds, his own CPAP, etc. Trach collar with oxygen, heated humidification. Pt increasingly alert throughout night. Using call light appropriately. Able to communicate some needs; points to trach to indicate need for suctioning, points to midsection when needs bedpan. Asking for both often. Able to turn self in bed with a little assistance, st on bedpan many times--pt seems to still feel like she has more stool to evacuate--but with no results. Eventually voided x2 near end of shift. Declined enema, suppository. Accepted Zofran. Getting thick opaque secretions from trach tube. Pressure spots on each of posterior thighs--red, blanchable, intact. Waffle cushion placed. Missing tips of two toes of left foot, epithialized and clean. Clearly has peripheral artery disease. Trach site and G-tube site both chronic, clean, without problems. back at bedside.
--- NOTE | 2021-03-04 07:46 | DI.MRI.S_ITS ---
PROCEDURE: MR HEAD/BRAIN WO CON INDICATIONS: abnormal neuro exam TECHNIQUE: Non-contrast axial T1 spin echo, axial T2 fast spin echo, sagittal and axial FLAIR, coronal T2 fast spin echo, axial gradient echo, axial diffusion and ADC through the brain. COMPARISON: [facility], MR, STROKE PROTOCOL (PNL), 05/30/2010, 7:30. [facility], MR, SEIZURE BRAIN W & W/O CONT, 04/30/2012, 11:43. [facility], CT, CT STROKE, 03/04/2021, 1:32. FINDINGS: Image quality: There are motion artifacts. CSF spaces: Ventricles appear symmetric in size and shape. Basal cisterns are patent. No extra-axial fluid collections. Brain: No intracranial bleeds or mass effects. There is mild cerebral volume loss for age. There are foci T2 hyperintensity in the periventricular white matter. Brainstem appears normal. Diffusion-weighted images show no acute ischemic insults. No chronic ischemic insults. Normal intravascular flow voids are present. Skull and face: Calvarial bone marrow is normal in signal. Orbits are normal. Sinuses: Sinuses and mastoids are clear. IMPRESSION: 1. Motion artifacts. No definitive acute intracranial abnormalities. 2. There are foci of T2 hyperintensity in periventricular white matter, most likely secondary to chronic small vessel ischemic changes. A differential diagnosis is a demyelinating process such as multiple sclerosis. Recommend clinical correlation. Dictated by: Ori Locke M.D. on 03/04/2021 at 16:06 Approved by: Ori Locke M.D. on 03/04/2021 at 16:11
--- NOTE | 2021-03-04 07:47 | DI.ECHO.S_ITS ---
[facility] +---------+ : : [address] [address] : : : : [id number] : : : : Phone: [phone]+ Echocardiogram Report + + :Name: KENNA GREENFIELD Study Date: 03/04/2021 Height: 67 in : :[facility] ReadingLocation: Weight: 115 lb : : Gender: Female BSA: 1.6 m2 : :: 1950 Age: 70 yrs BP: 128/59 mmHg: :Reason For Study: CVA : :Ordering Physician: JARETH, : :SOURAV Performed By: Fiona Carson : :Referring: SOURAV TEMPLETON : + + Interpretation Summary Patient had tracheostomy with oxygen tube. The left ventricle is normal in size and wall thickness. Left ventricular systolic function appears normal without focal wall motion abnormalities. The ejection fraction is estimated to be 65-70%. The right ventricle is normal in size and function. The left atrium grossly appears normal in size. The right atrium grossly appears normal in size. There is no significant valvular heart disease. The aortic root is normal size. There is a small loculated pericardial effusion and there is a small loculated effusion anteriorly that is extrapericardial. No obvious source for CVA. Procedure: A two-dimensional transthoracic echocardiogram with color flow and Doppler was performed. The study quality was technically adequate. The patient had an echocardiogram, but there is no comparison study available. The patient was in sinus rhythm with heart rates between 88-100 bpm during the exam. Left Ventricle: The left ventricle is normal in size and wall thickness. Left ventricular systolic function appears normal without focal wall motion abnormalities. The ejection fraction is estimated to be 65-70%. Diastolic parameters suggest probable normal left ventricular diastolic function and normal filling pressures. Right Ventricle: The right ventricle is normal in size and function. Atria: The left atrium grossly appears normal in size. The right atrium grossly appears normal in size. There is no Doppler evidence for an interatrial shunt. Mitral Valve: There is mild mitral annular calcification. There is no mitral regurgitation noted. Aortic Valve: The aortic valve is trileaflet. The aortic valve opens well. There is no aortic valve stenosis. No aortic regurgitation is present. Tricuspid Valve: The tricuspid valve is normal in structure and function. There is trace tricuspid regurgitation. Pulmonic Valve: The pulmonic valve is not well visualized. There is no pulmonic valvular regurgitation. There is no significant valvular heart disease. Great Vessels: The aortic root is normal size. The dimensions of the ascending aorta are normal. The IVC is of normal diameter and collapses less than 50% with a sniff. This suggests a right atrial pressure of 8 mm Hg. Pericardium/ Pleura There is an anterior echo-free space consistent with a fat pad. There is a small loculated pericardial effusion. MMode/2D Measurements & Calculations LVIDd: 4.2 cm LVOT diam: 2.1 cm LVIDs: 2.7 cm Ao root diam: 3.4 cm FS: 35.9 % IVSd: 0.98 cm LVPWd: 0.90 cm LV dejesus. diameter/BSA (cm/m^2): 2.6 LV sys. diameter/BSA (cm/m^2): 1.7 IVC diam: 1.3 cm RVD1 (basal): 3.0 cm TAPSE: 2.1 cm Doppler Measurements & Calculations Ao V2 max: 105.7 cm/sec LVOT Max Moises: 90.6 cm/sec Ao V2 mean: 67.8 cm/sec LV V1 max P.3 mmHg Ao max P.5 mmHg LV V1 VTI: 18.0 cm Ao mean P.2 mmHg JEROME(I,D): 3.2 cm2 Ao V2 VTI: 20.1 cm JEROME(V,D): 3.1 cm2 sev ratio: 0.90 JEROME indexed to BSA (cm^2/m^2): 2.0 MV E max moises: 76.5 cm/sec PA V2 max: 84.2 cm/sec MV A max moises: 78.7 cm/sec PA V2 mean: 57.3 cm/sec MV E/A: 0.97 PA mean P.5 mmHg Med Peak E' Moises: 10.4 cm/sec PA pr(Accel): 58.4 mmHg E/E' med: 7.4 Lat Peak E' Moises: 5.5 cm/sec E/E' lat: 14.0 E/e' average: 10.7 MV dec time: 0.22 sec SV(LVOT): 64.8 ml Reading Physician:03:40 PM
[2021-03-04] MEDS: OXYCODONE 5 MG/5 ML ORAL SOLUTION PO ×3 (08:16→22:53)
[2021-03-04 08:56] LABS: Appearance Urine UA CLEAR; Bilirubin Urine UA NEGATIVE (NEGATIVE); Color Urine UA YELLOW; Glucose Urine UA NEGATIVE (Negative); Ketones Urine UA 2+ (NEGATIVE); Leukocyte Esterase Urine UA TRACE (NEGATIVE); Nitrite Urine UA NEGATIVE (Negative); Occult Blood Urine UA 2+ (Negative); Protein Urine UA NEGATIVE (Negative); Specific Gravity Urine UA <=1.005 (1.000-1.035); Urobilinogen Urine UA 0.2 E.U./dL (0.2)
[2021-03-04 09:06] LABS: pH Urine UA 5.5 (4.5-8.0)
[2021-03-04 09:12] LABS: Bacteria Urine None Seen; Culture Indicated Urine Cult Not Indicated; RBC Urine 1-5/HPF (0-5/HPF); WBC Urine None Seen (0-5/HPF)
[2021-03-04] MEDS: clonazePAM 0.5 MG TABLET TUBE ×2 (09:39→22:55)
[2021-03-04] MEDS: ENOXAPARIN 40 MG/0.4 ML SYRINGE SUBCUT (09:39)
[2021-03-04] MEDS: GABAPENTIN 600 MG TABLET 900 MG TUBE ×2 (09:40→22:55)
[2021-03-04] MEDS: FERROUS SULFATE 300 MG/5 ML TUBE ×2 (09:41→22:57)
[2021-03-04] MEDS: MECLIZINE HCL 12.5 MG TABLET 25 MG TUBE (09:42)
[2021-03-04] MEDS: METOPROLOL IR 25 MG TABLET 37.5 MG TUBE ×2 (09:42→22:53)
--- NOTE | 2021-03-04 09:57 | DIET.PN1 ---
Addendum entered by Tish Hernandez 03/04/21 12:31: Pt reports to nursing he has been giving pt 1c TF formula every hour secondary to poor feeding tolerance. Upon RD discussion c spouse, they would like feeding pump trial to give spouse respite from feeding in hospital, and at a rate pt more likely to tolerate over bolus feeds. Recc continuing pts home Functional Formularies Liquid Hope via g-tube using continuous pump in open system bag. Recc sterile transfer of three 12oz formula tetra-packs into kangaroo open system bag undiluted. Recc feeding at rate of 125mL/h using pump over 8hr from 9am-5pm after which bag and tubing is discarded and replaced the next day. Recc 120mL free water flushes q4h. Formula plus water flushes provide 1,356mL free water (26mL/kg). Recc medical management of IVF to meet pts additional fluid needs as well as for hyponatremia correction. Original Note: Dietary Progress Note Dietary Progress Note Assessment: 70y F admitted with obstipation, code stroke called in ED. Pt has g-tube and dependent of this for all nourishment and hydration. Per pts , pt only consuming 2/3 formula x3d secondary to feeling fullness, additionally, has not been taking normal amount of free water flushes for same reason. At home, pt uses organic, plant-based TF formula Liquid Hope, three 12oz pouches per day with 160mL free water flushes c each pouch for total free water flushes of 480mL/d in addition to fluid from formula. She would have additional fluids via g-tube as desired, however, has not asked for this for several days. Pts would prefer to bring in pts home formula rather than switch to hospital formula to not upset her GI system, RD agrees with this plan. Pts will run home for supplies and bring to bedside of room 221. Pts happy to provide feedings to pt but would also like nursing to help in case he is not available. Pts home formula routine provides 1350kcals (20kcal/kg) and 69g PRO (1g/kg), also 1,080mg sodium. Ht: 167.64 cm Wt: 52.3 kg BMI: 18.1 Last BM: disimpacted of toya colored stool in ED Labs: Na 124 L, BUN 26 H, Nutrition Diagnosis: 1. reduced tube feed tolerance r/t early satiety aeb pt presents c SOB, pleural effusions, reports consuming 66% normal feeding x3d and little to know added free water flushes. 2. Inadequate fluid intake r/t early satiety aeb pt admitted obstipated c stool throughout colon, pt has not been consuming her normal amount of EN or free water flushes at home secondary to early satiety, Na 124 L, BUN 26 H, pt c recent thoracentesis of over 1 L. 3. Severe Acute on Chronic Protein Calorie Malnutrition r/t difficulty feeding and metastatic cancer aeb BMI 18.1 (severe for age), pt G-tube dependent not tolerating TF x1w, pt c two thorocentesis this week removing >1L fluid, pt readmitted for obstipation with code stroke called in ED. Interventions: 1. Recc inititating home TF formula and protocol when safe to do so as TID g-tube bolus feeding of 12oz liquid hope EN formula mixed c 2oz water followed by free water flushes of 60mL after each feed. Pt to remain upright for 90min after feeding. 2. Recc fluid management via IVF if pt unable to tolerate free water flushes into g-tube. Monitoring/Evaluations: consult prn Electronically Signed by: Tish Hernandez 03/04/21 09:57 Clinical Dietitian [address] [address]
--- NOTE | 2021-03-04 12:16 | ST.OP.ACL ---
Visit Care Team Role Provider Type Armani Wilkins MD Family Provider Physician Primary Care Provider Specialty: Internal Medicine Address: [address] [place] [address], [address], [place], [address] Email: [email or web address] Galindo Mendoza DO Emergency Provider Physician Referring Provider Specialty: Emergency Medicine Address: [address] [place] [address], [id number] Email: [email or web address] Duarte Admit Provider Physician Attending Provider Specialty: Internal Medicine Address: [address] [place] [address], [id number] Email: [email or web address] Adult Cognitive Linguistic Evaluation STEREOTYPE MOLDER Adult Cognitive Linguistic Eval Start: 03/04/21 12:03 Freq: Status: Active Protocol: Document 03/04/21 12:04 [email or web address] (Rec: 03/04/21 12:16 LNK [id number]) Adult Cognitive Linguistic Evaluation Session Time Visit Start Time 11:40 Visit Stop Time 12:00 Total Visit Minutes 20 Setting Assessment Location Acute Care Visit Type Note Type Initial evaluation Patient Information Identification Type Name Medical History Received orders for evaluation of pt. Pt has a tracheotomy, is tube fed and is aphonic but able to read and write. Pt was asleep in her room. Spoke with pt's who noted that pt is able to speak in a very soft whisper but relies on a communication board and/ or writing pad at home. Subjective Patient Report Pt was in bed sleepiy. Spoke with about pt's communication needs. He noted that pt has a communication board at home and will use writing to communicate. Findings/Results Findings Family education re: communication board use. This ST brought pt a communication board as hers was at home and a pad of paper with a pen to aid her in communication. Pt's reported that pt is able to speak, but in a soft whisper that takes a lot of energy (due to bilateral vocal fold paralysis). Continuing ST is not indicated at this time. Will d/c.
[2021-03-04] MEDS: diazePAM 5 MG TABLET 2.5 MG TUBE (14:37)
--- NOTE | 2021-03-04 16:07 | CM.DANOTE ---
DCP: Case received, EMR reviewed. Patient was sleeping, but , Wolf, was present in the room. Introduced self and role. Was able to obtain information from spouse regarding patient's care needs, and what type of support she is currently getting. DCP assessment completed with information currently available. Patient is a 70 year old female who admitted early this morning to the care of the hospitalist team. PCP: Dr. Wilkins. Payer: confirmed: Medicare/. Patient came to the hospital via private vehicle secondary to having some constipation issues. Patient has history of cancer, and has been treated at [facility]. Patient has a trach and feeding tube. According to spouse, patient was recently in the ER having some fluid removed. Patient is here with pneumonia. Met with patient's , Wolf. He is the primary caregiver. He mentioned that patient has an RN that comes out 3 times a week through [facility]. He mentioned, he decided that instead of using [facility], he decided to use the nursing services with [facility] instead, since he is her primary caregiver. He indicated that patient has a hospital bed, a elevator chair that goes up the stairs. She also has a power wheel chair, as well as a hospital bed and a wheel chair van. He indicated, since Thursday, she had been more independent with her FWW, but that has changed, and she is weeker. He indicated that she has been getting chemo down at [facility], due to the intensity of her cancer needs. Spouse had mentioned that patient had been on hospice before, and if needed, would consider them again. He has the equipment to care for her at home if this is what is recommended. He will discuss with hospitalist once all of her lab work is in. P: DCP to continue to follow. Plan is for patient to go home, either to resume with nursing through the state, or a hospice referral. Kim Moreno RN/Research Executive Discharge Planning/Care Management CM Discharge Assessment Start: 03/04/21 16:05 Freq: Status: Active Protocol: Document 03/04/21 16:05 (Rec: 03/04/21 16:07 [id number]) Discharge Planning Assessment Assigned Pipeline Gang Supervisor Kim Moreno RN/Research Executive Advance Directives? Yes: POLST Advance Directives on File Yes History Provided By Patient,Family Member,Medical Record Prior Living Arrangements House Household Members spouse,caregiver Type of transporation used prior to Relies on Others admit Independent with ADL's No Is patient alert and oriented? Yes Needs Assistance With Bathing,Eating,Grooming,Meal Prep,Toileting,Managing Medications,Home Chores / Shopping Caregiver for Another No Comment State CM is Ok [place] # [phone] Barriers to Discharge No Comment is very supportive. Discharge Plan Home Transportation Arrangement Family to provide transport Referrals Initiated None needed,Other Additional Comment brought up hospice, but not until testing is completed and conversation with hospitalist is had. Whiteboard Updated in Patient Room with Yes name and ext. # of Pipeline Gang Supervisor Review Status In Process Next Review Type Continued Stay Review
[2021-03-04] MEDS: FLEETS ENEMA 1 EACH PR (17:30)
--- NOTE | 2021-03-04 18:01 | P.PN_ITS ---
Subjective Subjective Interval history: Patient denies any acute complaints this morning. at bedside helped fill-in other history. Exam Vital Signs (past 8 hours): - 03/04/21 11:22 03/04/21 13:48 Pulse Rate 92 H Respiratory Rate 16 Blood Pressure 139/78 Pulse Oximetry 97 100 Fraction of Inspired Oxygen 28 Oxygen Delivery Method Trach Collar Oxygen Flow Rate 28 Const Other: Patient is sitting up in bed, in no apparent acute distress. Eyes Other: No scleral icterus appreciated. Neck Other: Trach in place with trach collar. Resp Other: Diminished breath sounds bilaterally. No adventitious breath sounds appreciated. Cardio Other: Regular rate and rhythm. S1 and S2 heart sounds auscultated with no extra heart sounds or murmurs appreciated. No peripheral edema. GI Other: Soft, non-distended, non-tender. Bowel sounds present. Neuro Other: CN II-XII intact. No focal motor neurological deficitis appreciated. Extrem Other: Palpable dorsalis pedis pulses bilaterally. Objective Labs Result Diagrams: 03/04/21 01:25 03/04/21 01:25 Labs: Laboratory Results - last 24 hr 03/04/21 03/04/21 03/04/21 01:25 01:25 01:25 WBC 10.7 RBC 3.92 L Hgb 11.9 L Hct 35.2 L MCV 89.7 MCH 30.4 MCHC 33.9 RDW 14.3 Plt Count 422 H Neut % (Auto) 90.1 H Lymph % (Auto) 2.3 L [place] % (Auto) 5.3 Eos % (Auto) 2.1 Baso % (Auto) 0.2 Neut # (Auto) 9700 H Lymph # (Auto) 200 L [place] # (Auto) 600 Eos # (Auto) 200 Baso # (Auto) 0 Sodium 124 L Potassium 4.7 Chloride 87 L Carbon Dioxide 28 BUN 26 H Creatinine 0.86 Estimated GFR > 60.0 BUN/Creatinine Ratio 30.2 H Glucose 101 Calcium 7.9 L Total Creatine Kinase 46 CK-MB (CK-2) TNP CK-MB (CK-2) Rel Index TNP Troponin I < 0.012 Urine Color Urine Appearance Urine pH Ur Specific [place] Urine Protein Urine Glucose (UA) Urine Ketones Urine Occult Blood Urine Nitrate Urine Bilirubin Urine Urobilinogen Ur Leukocyte Esterase Urine RBC Urine WBC Urine Bacteria Ur Culture Indicated? Ur Random Sodium Urine Creatinine U Opiates 300ng/mL cut Ur Oxycodone Screen Urine Methadone Screen Ur Barbiturates Screen U Tricyclic Antidepress Ur Phencyclidine Scrn Ur Amphetamines Screen U Methamphetamines Scrn Ur MDMA Scrn (Ecstasy) U Benzodiazepines Scrn Urine Cocaine Screen U Marijuana (THC) Screen SARS-CoV-2 (PCR) 03/04/21 03/04/21 03/04/21 02:28 06:30 06:30 WBC RBC Hgb Hct MCV MCH MCHC RDW Plt Count Neut % (Auto) Lymph % (Auto) [place] % (Auto) Eos % (Auto) Baso % (Auto) Neut # (Auto) Lymph # (Auto) [place] # (Auto) Eos # (Auto) Baso # (Auto) Sodium Potassium Chloride Carbon Dioxide BUN Creatinine Estimated GFR BUN/Creatinine Ratio Glucose Calcium Total Creatine Kinase CK-MB (CK-2) CK-MB (CK-2) Rel Index Troponin I Urine Color Urine Appearance Urine pH Ur Specific [place] Urine Protein Urine Glucose (UA) Urine Ketones Urine Occult Blood Urine Nitrate Urine Bilirubin Urine Urobilinogen Ur Leukocyte Esterase Urine RBC Urine WBC Urine Bacteria Ur Culture Indicated? Ur Random Sodium 42 Urine Creatinine 35.6 U Opiates 300ng/mL cut Negative Ur Oxycodone Screen Positive H Urine Methadone Screen Negative Ur Barbiturates Screen Negative U Tricyclic Antidepress Negative Ur Phencyclidine Scrn Negative Ur Amphetamines Screen Negative U Methamphetamines Scrn Negative Ur MDMA Scrn (Ecstasy) Negative U Benzodiazepines Scrn Positive H Urine Cocaine Screen Negative U Marijuana (THC) Screen Negative SARS-CoV-2 (PCR) Negative 03/04/21 06:30 WBC RBC Hgb Hct MCV MCH MCHC RDW Plt Count Neut % (Auto) Lymph % (Auto) [place] % (Auto) Eos % (Auto) Baso % (Auto) Neut # (Auto) Lymph # (Auto) [place] # (Auto) Eos # (Auto) Baso # (Auto) Sodium Potassium Chloride Carbon Dioxide BUN Creatinine Estimated GFR BUN/Creatinine Ratio Glucose Calcium Total Creatine Kinase CK-MB (CK-2) CK-MB (CK-2) Rel Index Troponin I Urine Color Yellow Urine Appearance Clear Urine pH 5.5 Ur Specific [place] <=1.005 Urine Protein Negative Urine Glucose (UA) Negative Urine Ketones 2+ H Urine Occult Blood 2+ H Urine Nitrate Negative Urine Bilirubin Negative Urine Urobilinogen 0.2 Ur Leukocyte Esterase Trace H Urine RBC 1-5/hpf Urine WBC None seen Urine Bacteria None seen Ur Culture Indicated? 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) History of radiation therapy (~1992) Horners syndrome (~2010) Hypothyroid Kidney disease (~1974) Measles (~1952) Migraines MRSA (methicillin resistant Staphylococcus aureus) (~2015) Mumps (~1956) Peripheral neuropathy (~2010) Pituitary adenoma Rubella (~1959) Seizures (~1958) Thyroid cancer (~1969) Vocal cord paralysis (~2010) Surgical History Anesthesia History of foot surgery (~2013) History of neck surgery (~2009) History of surgery (~2010) History of thyroid surgery (~1982) History of thyroidectomy (~1969) Family History Father Cancer Diabetes mellitus History of heart disease Hyperlipidemia Hypertension Polycythemia vera Mother High cholesterol History of heart disease Sister Age: 75 High cholesterol Sister High cholesterol Mental health problem Sister Asthma Grandmother Parkinson's disease Grandfather Cancer Social History household members: spouse and caregiver Smoking Status: Never smoker alcohol intake: never Assessment & Plan Time Spent With Patient Critical Care time: I spent a total of [] minutes of critical care time on this patient's care today; this time is exclusive of procedural time.
--- NOTE | 2021-03-04 19:37 | PC.NURSE ---
Frequent suctioning needed this morning with thick cream colored secretions. Patient alert and able to answer some questions, and her also remains at bedside to help with her care. Medicated with prn diazepam prior to MR brain and patient able to tolerate and complete test today. Patient attempted to use bedpan after test and was unable to void. Bladder scan showed approximately 900, order to straight cath received and completed and patient tolerated well. Enema given. Patient comfortable and laying on her left side sleeping. Brief in place. Tube feedings implemented as ordered. IV fluids infusing. Call light within reach.
[2021-03-04] MEDS: NYSTATIN SUSP 500,000 UNIT/5 ML UDC 500000 UNIT PO (22:53)
[2021-03-04] MEDS: SENNOSIDES 8.6 MG TABLET TUBE (22:55)
[2021-03-04] MEDS: IPRATROPIUM 0.06% NASAL 15 ML 2 SPRAY NASAL (22:57)
[2021-03-05] VITALS (8 sets, daily range): BP systolic 138–175; BP diastolic 73–96; PULSE 76–102; RESP 15–18; TEMP 36.1–36.6; O2SAT 96–100
[2021-03-05 07:02] LABS: BUN Creatinine Ratio 30.5 (6-22); Blood Urea Nitrogen 18 mg/dL (7-17); Carbon Dioxide 28 mmol/L (22-32); Chloride 95 mmol/L (98-107); Estimated Glomerular Filt Rate > 60.0 mL/min (>60); Glucose 125 mg/dL (80-110); HEMOLYSIS < 15 (0-50); Potassium 4.2 mmol/L (3.4-5.1); Sodium 131 mmol/L (137-145)
[2021-03-05 07:49] LABS: Add Manual Diff / Slide Review NO; Basophils Absolute Auto 0 /uL (0-100); Basophils Percent Auto 0.3 % (0-2); Eosinophils Absolute Auto 100 /uL (0-450); Eosinophils Percent Auto 1.3 % (2-4); Hematocrit 33.5 % (36-46); Hemoglobin 11.4 g/dL (12.0-16.0); Lymphocytes Absolute Auto 300 /uL (1100-4500); Lymphocytes Percent Auto 3.4 % (25-40); Mean Corpuscular Hemoglobin 30.5 PG (26-34); Mean Corpuscular Volume 89.6 fL (80-100); Monocytes Absolute Auto 900 /uL (0-900); Neutrophils Absolute Auto 8400 /uL (1500-7000); Platelet Count 428 X10^3/uL (150-400); Red Blood Cell Count 3.74 X10^6/uL (4.0-5.2); Red Cell Distribution Width 14.5 % (11.6-14.8); White Blood Cell Count 9.8 X10^3/uL (4.5-11.0)
[2021-03-05] MEDS: MECLIZINE HCL 12.5 MG TABLET 25 MG TUBE (09:34)
[2021-03-05] MEDS: clonazePAM 0.5 MG TABLET TUBE ×3 (09:34→21:03)
[2021-03-05] MEDS: ENOXAPARIN 40 MG/0.4 ML SYRINGE SUBCUT (09:35)
[2021-03-05] MEDS: GABAPENTIN 600 MG TABLET 900 MG TUBE ×2 (09:35→21:04)
[2021-03-05] MEDS: FERROUS SULFATE 300 MG/5 ML TUBE ×3 (09:36→21:03)
[2021-03-05] MEDS: METOPROLOL IR 25 MG TABLET 37.5 MG TUBE ×2 (09:36→21:03)
[2021-03-05] MEDS: OXYCODONE 5 MG/5 ML ORAL SOLUTION PO ×3 (09:37→21:03)
[2021-03-05] MEDS: DULOXETINE 30 MG CAPSULE PO (09:38)
--- NOTE | 2021-03-05 11:09 | PM.PN.1 ---
Subjective Subjective Interval history: Patient denies any acute complaints this morning. at bedside was inquiring about the patient's pleural effusions, and we discussed different treatment strategies at length. They are very appreciative of the care they're being provided here. Exam Vital Signs (past 8 hours): - 03/07/21 04:55 03/07/21 08:06 Temperature 98.9 F 98.1 F Pulse Rate 114 H 65 Respiratory Rate 23 22 Blood Pressure 173/85 H 194/92 H Pulse Oximetry 97 96 Fraction of Inspired Oxygen 28 Oxygen Delivery Method Humidification,Trach Collar Oxygen Flow Rate 2 Const Other: Patient sitting up in bed comfortably upon my entering the room, in no apparent acute distress. Eyes Other: No scleral icterus appreciated. Neck Other: No carotid bruits appreciated. Tracheostomy in place with no surrounding erythema or purulence. Resp Other: Diminished breath sounds bilaterally, worse on the left. Scattered areas of good air exchange. No adventitious breath sounds appreciated. Cardio Other: Regular rate and rhythm. S1 and S2 heart sounds appreciated, with no extra heart sounds or murmurs noted. No peripheral edema appreciated. GI Other: PEG tube securely in place with no surrounding erythema or purulence. Soft, non-distended, non-tender. Bowel sounds present. Extrem Other: Palpable and equal radial and dorsalis pedis pulses bilaterally. Objective Labs Result Diagrams: 03/07/21 05:31 03/07/21 07:15 Labs: Laboratory Results - last 24 hr 03/07/21 03/07/21 03/07/21 05:30 05:31 07:15 WBC 7.2 RBC 4.15 Hgb 12.5 Hct 37.2 MCV 89.6 MCH 30.1 MCHC 33.6 RDW 14.2 Plt Count 366 Neut % (Auto) 76.2 H Lymph % (Auto) 5.6 L [place] % (Auto) 12.0 Eos % (Auto) 5.6 H Baso % (Auto) 0.6 Neut # (Auto) 5500 Lymph # (Auto) 400 L [place] # (Auto) 900 Eos # (Auto) 400 Baso # (Auto) 0 Sodium 133 L Potassium 3.8 Chloride 97 L Carbon Dioxide 28 BUN 9 Creatinine 0.48 L Estimated GFR > 60.0 BUN/Creatinine Ratio 18.8 Glucose 117 H Calcium 8.2 L Total Bilirubin 0.3 AST 20 ALT 13 Alkaline Phosphatase 116 Total Protein 6.9 Albumin 3.5 Globulin 3.4 Albumin/Globulin Ratio 1.0 Urine Color Yellow Urine Appearance Clear Urine pH 6.5 Ur Specific [place] 1.010 Urine Protein 2+ H Urine Glucose (UA) Negative Urine Ketones Negative Urine Occult Blood 2+ H Urine Nitrate Negative Urine Bilirubin Negative Urine Urobilinogen 0.2 Ur Leukocyte Esterase Trace H Urine RBC 1-5/hpf Urine WBC 0-1/hpf Urine Bacteria Few (2-10) H Hyaline Casts 0-1/lpf Ur Culture Indicated? 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) History of radiation therapy (~1992) Horners syndrome (~2010) Hypothyroid Kidney disease (~1974) Measles (~1952) Migraines MRSA (methicillin resistant Staphylococcus aureus) (~2015) Mumps (~1956) Peripheral neuropathy (~2010) Pituitary adenoma Rubella (~1959) Seizures (~1958) Thyroid cancer (~1969) Vocal cord paralysis (~2010) Surgical History Anesthesia History of foot surgery (~2013) History of neck surgery (~2009) History of surgery (~2010) History of thyroid surgery (~1982) History of thyroidectomy (~1969) Family History Father Cancer Diabetes mellitus History of heart disease Hyperlipidemia Hypertension Polycythemia vera Mother High cholesterol History of heart disease Sister Age: 75 High cholesterol Sister High cholesterol Mental health problem Sister Asthma Grandmother Parkinson's disease Grandfather Cancer Social History household members: spouse Smoking Status: Never smoker alcohol intake: never Assessment & Plan Assessment & Plan narrative: Assessment: 1. Constipation/obstipation, likely due to polypharmacy 2. Hx of metastatic thyroid cancer, status post thyroidectomy 3. Acquired hypothyroidism 4. Hx of reconstructive neck surgery leading to tracheostomy placement 5. 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 Bilateral pleural effusions, loculated on the left, likely malignancy-associated 7. Minimal right lung apical pneumothorax 8. Hypocalcemia, likely secondary to parathyroidectomy 9. Hyponatremia, likely due to SIADH 10. Small foci to periventricular white matter, likely due to chronic small vessel ischemic changes 11. PEG-tube dependent for nutrition 12. Hx of anxiety/depression Plan: 1. Found significant relief with enemas inpatient. Her medications are all appropriate for her chronic conditions, making weaning very difficult. Therefore, a good bowel regimen is essential outpatient, with patient and her knowing this. 2. The patient has been battling this cancer for decades. She is being followed by an oncologist based out of [place]. 3. Will continue home levothyroxine. 4. At home, the patient is well-maintained on 4 liters oxygen, typically. She has not required much supplemental oxygen here. 5. This was discovered fairly recently, according to the patient's . She is undergoing palliative radiation therapy in [place]. 6. She has underwent multiple therapeutic thoracentesis fairly recently. Per , cytology report is pending in [place]. Loculations on the left will have to be broken down, likely with recombinant DNAse, for effective drainage. 7. This likely occurred secondary to a thoracentesis. Appears to be well-contained, non-expanding, and is not contributing to patient's current illness. 8. Calcium replenished inpatient. Appreciate nutrition consult recommendations regarding tube feed Ca supplementation. 9. The patient has multiple conditions that predispose to SIADH. Na has remained stable. 10. This was revealed on MRI brain that was completed inpatient due to concern for TIA at one point. Echocardiogram unremarkable. I did discuss with the patient and her that it is important to follow-up with outpatient neurology for this matter. 11. Appreciate nutrition consult's assistance. 12. Will continue home antidepressant, anxiolytic medications. VTE prophylaxis: Lovenox 40 mg daily Disposition: Home with home health care, once clinically stable Time Spent With Patient Critical Care time: I spent a total of [] minutes of critical care time on this patient's care today; this time is exclusive of procedural time.
[2021-03-05] MEDS: CALCIUM GLUCONATE 9.3 MEQ in SODIUM CHLORIDE 0.9% 50 ML 140 ML IV (12:38)
--- NOTE | 2021-03-05 13:45 | PT.IIE ---
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) History of radiation therapy (~1992) Horners syndrome (~2010) Hypothyroid Kidney disease (~1974) Measles (~1952) Migraines MRSA (methicillin resistant Staphylococcus aureus) (~2015) Mumps (~1956) Peripheral neuropathy (~2010) Pituitary adenoma Rubella (~1959) Seizures (~1958) Thyroid cancer (~1969) Vocal cord paralysis (~2010) Physical Therapy Inpatient Evaluation/Re-Eval M1 PT/OT-IP Prior Functional Status Start: 03/05/21 14:44 Freq: NEEDED Status: Active Protocol: Document 03/05/21 13:45 AB (Rec: 03/05/21 14:58 AB [email or web address]) Medical Review Prior Functional Status Medical History Reviewed Yes Communication pt is non verbal due to tracheostomy but able to nod/ shake her head to answer questions Mobility and Gait pt informed PT that she is usually in bed and has not been walking much and has been using a power w/c for mobility inside and outside that house; able to step transfer using FWW bed<> bedside commode and spouse assists as needed; pt also has a rolling shower chair that she transfers into and spouse rolls her to the shower and assists her with showers but stated that she is able to get dressed by herself and spouse assists as needed. Social History Household Members spouse Living Arrangements House Number of Floors (Floors) Two Floors Number of Stairs To Enter/Railing? pt has a chair lift to get into the house and also to get into the bedroom level Home Environment Walk in Shower Home Equipment Front Wheel Walker,Manual Wheelchair,Power Wheelchair/ Scooter,Bedside Commode, Hospital Bed,Bed Rails Additional Social History Comment has rolling shower chairs has 3 power w/c/scooters M2 PT-IP Current Condition Start: 03/05/21 14:44 Freq: NEEDED Status: Active Protocol: Document 03/05/21 13:45 AB (Rec: 03/05/21 14:58 AB [email or web address]) Physical Therapy Current Condition Current Condition Evaluation Date 03/05/21 Treatment Diagnosis obstipation; TIA; generalized weakness Onset Date 03/04/21 M3 PT-IP Subjective Start: 03/05/21 14:44 Freq: NEEDED Status: Active Protocol: Document 03/05/21 13:45 AB (Rec: 03/05/21 14:58 AB [email or web address]) Subjective Physical Therapy Visit Type Type Initial Evaluation Visit Start Time 13:45 Visit Stop Time 14:05 Total Visit Minutes 20 Number of SOCIAL MEDIA CONTENT SPECIALIST Visits 0 Physical Therapy Visit Comments Patient Comments hesistant to do PT but agreed to move a little M4 PT-IP Mobility and Gait Start: 03/05/21 14:44 Freq: NEEDED Status: Active Protocol: Document 03/05/21 13:45 AB (Rec: 03/05/21 14:58 AB [email or web address]) PT-Bed Mobility Assessment Supine to Sit Supine to Sit Standby Assistance,Head of Bed Elevated Sit to Supine Sit to Supine Standby Assistance,Head of Bed Elevated PT-Transfer Assessment Sit to and From Stand Sit to and from Stand Standby Assistance,1 Person Assistance,Use of Upper Extremities Equipment Transfer Assistive Device Gait Belt,Front Wheeled Walker Orthotic/Prosthetic Devices or Brace: No Comments Mobility Comments pt completed supine to sit SBA . able to sit on EOB SBA. completed sit to stand SBA and able to take ~ 3 steps towards HOB. requested to go back to bed. completed sit to supine SBA. positioned pt in bed. call light and table placed within reach. Pt's feeding tube suddenly disconnected and informed nurse. Nurse in room reconnecting beeding tube to pt and took over pt's care. Gait Assessment Gait Gait Assistance Required: Standby Assistance Distance (Feet) 2 Able to Maintain Weight Bearing Status Yes During Gait Assistive Devices Assistive Device Gait Belt,Front Wheeled Walker Factors Limiting Gait Function Factors Limiting Gait Function Decreased Activity Tolerance, Decreased Strength,Poor Balance,Poor Safety Awareness Comments Gait Comments able to take side steps towards HOB SBA using FWW PT-Balance Assessment Sitting Balance and Reactions Static Sitting Balance Ability Good Dynamic Sitting Balance Ability Good Standing Balance and Reactions Static Standing Balance Ability Fair Dynamic Standing Balance Ability Fair Device Used FWW M5 PT-IP Objective Assessments Start: 03/05/21 14:44 Freq: NEEDED Status: Active Protocol: Document 03/05/21 13:45 AB (Rec: 03/05/21 14:58 AB [id number]) Orientation Orientation/Cognition Level of Alertness Alert Orientation Name Memory Description No Deficits Noted Comments unable to verbalize needs due to tracheostomy Gross Range of Motion Lower Extremity ROM Assessment Within Functional Limits Strength Lower Extremity Strength Assessment Within Functional Limits Coordination Assessment Gross Coordination Gross Coordination WNL Sensation Assessment Sensation Gross Sensation WNL Muscle Tone Muscle Tone WNL Yes M6 PT-IP Treatment Start: 03/05/21 14:44 Freq: NEEDED Status: Active Protocol: Document 03/05/21 13:45 AB (Rec: 03/05/21 14:58 AB [id number]) Physical Therapy Treatment Education Education Provided Safety M7 PT-IP Assessment and Plan Start: 03/05/21 14:44 Freq: NEEDED Status: Active Protocol: Document 03/05/21 13:45 AB (Rec: 03/05/21 14:58 AB [email or web address]) PT Summary Assessment and Plan Potential Rehabilitation Potential Fair Status of Condition at Evaluation Stable Summary Impairments Pain,ROM,Strength,Balance, Coordination,Sensation,Tone, Cognition,Bed Mobility, Transfers,Gait,Activity Tolerance Assessment Summary PT eval completed. Pt requiring SBA with mobility and pt has her spouse to assists her at home. Pt usually stays in bed at home and has not been walking and informed PT that she usually just uses her bedside commode for toileting needs and also has been using her power w/c for mobility. Pt is at OF and no further PT indicated at this time. Frequency of Treatment Frequency Of Treatment Discharge Discharge Recommendations Transportation Needs at Discharge Private Vehicle
[2021-03-05] MEDS: SODIUM CHLORIDE 0.9% 1,000 ML 100 ML IV (14:56)
[2021-03-05] MEDS: IPRATROPIUM 0.06% NASAL 15 ML 2 SPRAY NASAL ×2 (15:09→21:05)
--- NOTE | 2021-03-05 16:25 | OT.IPNOTE ---
Spoke to pt regarding OT needs, pt able to gesture and nod when questions asked whether she would like to have OT services while in the hospital. Pt states that her assists her with all her needs as needed and has all the equipment at home. Therefore discharge Ot services at this time.
[2021-03-05] MEDS: NYSTATIN SUSP 500,000 UNIT/5 ML UDC 500000 UNIT PO (21:03)
[2021-03-05] MEDS: SENNOSIDES 8.6 MG TABLET TUBE (21:04)
[2021-03-05] MEDS: diazePAM 5 MG TABLET 2.5 MG TUBE (22:02)
[2021-03-06] VITALS (11 sets, daily range): BP systolic 168–190; BP diastolic 84–99; PULSE 84–167; RESP 16–22; TEMP 36.3–37.2; O2SAT 94–98
[2021-03-06] MEDS: LEVOTHYROXINE 88 MCG TABLET TUBE (04:06)
[2021-03-06] MEDS: LEVOTHYROXINE 100 MCG TABLET 200 MCG TUBE (04:06)
[2021-03-06] MEDS: diazePAM 5 MG TABLET 2.5 MG TUBE (04:06)
[2021-03-06] MEDS: OXYCODONE 5 MG/5 ML ORAL SOLUTION PO ×5 (04:07→21:42)
[2021-03-06] MEDS: MORPHINE 2 MG/ML INJ IV (04:36)
[2021-03-06] MEDS: ONDANSETRON 4 MG/2 ML INJ IV (04:45)
[2021-03-06 05:48] LABS: Add Manual Diff / Slide Review NO; Basophils Absolute Auto 100 /uL (0-100); Basophils Percent Auto 0.7 % (0-2); Eosinophils Absolute Auto 400 /uL (0-450); Eosinophils Percent Auto 4.6 % (2-4); Hematocrit 36.9 % (36-46); Hemoglobin 12.3 g/dL (12.0-16.0); Lymphocytes Absolute Auto 300 /uL (1100-4500); Lymphocytes Percent Auto 4.4 % (25-40); Mean Corpuscular HGB Conc 33.4 % (30-36); Mean Corpuscular Hemoglobin 29.9 PG (26-34); Mean Corpuscular Volume 89.6 fL (80-100); Monocytes Absolute Auto 900 /uL (0-900); Monocytes Percent Auto 11.4 % (3-14); Neutrophils Absolute Auto 6300 /uL (1500-7000); Neutrophils Percent Auto 78.9 % (50-75); Platelet Count 392 X10^3/uL (150-400); Red Blood Cell Count 4.12 X10^6/uL (4.0-5.2); Red Cell Distribution Width 14.2 % (11.6-14.8); White Blood Cell Count 7.9 X10^3/uL (4.5-11.0)
[2021-03-06 05:57] LABS: BUN Creatinine Ratio 20.8 (6-22); Blood Urea Nitrogen 11 mg/dL (7-17); Calcium 7.7 mg/dL (8.4-10.2); Carbon Dioxide 30 mmol/L (22-32); Chloride 98 mmol/L (98-107); Estimated Glomerular Filt Rate > 60.0 mL/min (>60); Glucose 117 mg/dL (80-110); HEMOLYSIS < 15 (0-50); Magnesium 1.8 mg/dL (1.6-2.3); Potassium 4.1 mmol/L (3.4-5.1); Sodium 132 mmol/L (137-145)
[2021-03-06] MEDS: MECLIZINE HCL 12.5 MG TABLET 25 MG TUBE (09:09)
[2021-03-06] MEDS: DULOXETINE 30 MG CAPSULE PO (09:10)
[2021-03-06] MEDS: GABAPENTIN 600 MG TABLET 900 MG TUBE ×2 (09:10→21:39)
[2021-03-06] MEDS: clonazePAM 0.5 MG TABLET TUBE ×3 (09:11→21:39)
[2021-03-06] MEDS: ENOXAPARIN 40 MG/0.4 ML SYRINGE SUBCUT (09:12)
[2021-03-06] MEDS: METOPROLOL IR 25 MG TABLET 37.5 MG TUBE ×2 (09:13→21:39)
[2021-03-06] MEDS: NYSTATIN SUSP 500,000 UNIT/5 ML UDC 500000 UNIT PO ×2 (09:14→21:39)
[2021-03-06] MEDS: FERROUS SULFATE 300 MG/5 ML TUBE ×3 (09:20→21:39)
[2021-03-06] MEDS: SODIUM CHLORIDE 0.9% 1,000 ML 100 ML IV ×2 (09:42→19:43)
[2021-03-06] MEDS: IPRATROPIUM 0.06% NASAL 15 ML 2 SPRAY NASAL ×3 (10:11→21:39)
--- NOTE | 2021-03-06 11:15 | PM.PN.1 ---
Subjective Subjective Interval history: The patient denies any recurrence of constipation/obstipation. She and her are happy with the current bowel regimen. They are understandably reluctant to wean down medications that are likely contributing to her slow intestinal motility. She reports feeling OK but not quite back to general baseline. Exam Vital Signs (past 8 hours): - 03/07/21 04:55 03/07/21 08:06 03/07/21 10:00 Temperature 98.9 F 98.1 F Pulse Rate 114 H 65 Respiratory Rate 23 22 Blood Pressure 173/85 H 194/92 H Pulse Oximetry 97 96 97 Fraction of Inspired Oxygen 28 Oxygen Delivery Method Humidification,Trach Collar Oxygen Flow Rate 2 Narrative Exam Narrative: Const Other: Patient sitting up in bed comfortably upon my entering the room, in no apparent acute distress. Eyes Other: No scleral icterus appreciated. Neck Other: No carotid bruits appreciated. Tracheostomy in place with no surrounding erythema or purulence. Resp Other: Diminished breath sounds bilaterally, worse on the left. Scattered areas of good air exchange. No adventitious breath sounds appreciated. Cardio Other: Regular rate and rhythm. S1 and S2 heart sounds appreciated, with no extra heart sounds or murmurs noted. No peripheral edema appreciated. GI Other: PEG tube securely in place with no surrounding erythema or purulence. Soft, non-distended, non-tender. Bowel sounds present. Extrem Other: Palpable and equal radial and dorsalis pedis pulses bilaterally. Objective Labs Result Diagrams: 03/07/21 05:31 03/07/21 07:15 Labs: Laboratory Results - last 24 hr 03/07/21 03/07/21 03/07/21 05:30 05:31 07:15 WBC 7.2 RBC 4.15 Hgb 12.5 Hct 37.2 MCV 89.6 MCH 30.1 MCHC 33.6 RDW 14.2 Plt Count 366 Neut % (Auto) 76.2 H Lymph % (Auto) 5.6 L [place] % (Auto) 12.0 Eos % (Auto) 5.6 H Baso % (Auto) 0.6 Neut # (Auto) 5500 Lymph # (Auto) 400 L [place] # (Auto) 900 Eos # (Auto) 400 Baso # (Auto) 0 Sodium 133 L Potassium 3.8 Chloride 97 L Carbon Dioxide 28 BUN 9 Creatinine 0.48 L Estimated GFR > 60.0 BUN/Creatinine Ratio 18.8 Glucose 117 H Calcium 8.2 L Total Bilirubin 0.3 AST 20 ALT 13 Alkaline Phosphatase 116 Total Protein 6.9 Albumin 3.5 Globulin 3.4 Albumin/Globulin Ratio 1.0 Urine Color Yellow Urine Appearance Clear Urine pH 6.5 Ur Specific [place] 1.010 Urine Protein 2+ H Urine Glucose (UA) Negative Urine Ketones Negative Urine Occult Blood 2+ H Urine Nitrate Negative Urine Bilirubin Negative Urine Urobilinogen 0.2 Ur Leukocyte Esterase Trace H Urine RBC 1-5/hpf Urine WBC 0-1/hpf Urine Bacteria Few (2-10) H Hyaline Casts 0-1/lpf Ur Culture Indicated? 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) History of radiation therapy (~1992) Horners syndrome (~2010) Hypothyroid Kidney disease (~1974) Measles (~1952) Migraines MRSA (methicillin resistant Staphylococcus aureus) (~2015) Mumps (~1956) Peripheral neuropathy (~2010) Pituitary adenoma Rubella (~1959) Seizures (~1958) Thyroid cancer (~1969) Vocal cord paralysis (~2010) Surgical History Anesthesia History of foot surgery (~2013) History of neck surgery (~2009) History of surgery (~2010) History of thyroid surgery (~1982) History of thyroidectomy (~1969) Family History Father Cancer Diabetes mellitus History of heart disease Hyperlipidemia Hypertension Polycythemia vera Mother High cholesterol History of heart disease Sister Age: 75 High cholesterol Sister High cholesterol Mental health problem Sister Asthma Grandmother Parkinson's disease Grandfather Cancer Social History household members: spouse Smoking Status: Never smoker alcohol intake: never Assessment & Plan Assessment & Plan narrative: Assessment: 1. Constipation/obstipation, likely due to polypharmacy 2. Hx of metastatic thyroid cancer, status post thyroidectomy 3. Acquired hypothyroidism 4. Hx of reconstructive neck surgery leading to tracheostomy placement 5. 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 Bilateral pleural effusions, loculated on the left, likely malignancy-associated 7. Minimal right lung apical pneumothorax 8. Hypocalcemia, likely secondary to parathyroidectomy 9. Hyponatremia, likely due to SIADH 10. Small foci to periventricular white matter, likely due to chronic small vessel ischemic changes 11. PEG-tube dependent for nutrition 12. Hx of anxiety/depression Plan: 1. Found significant relief with enemas inpatient. Her medications are all appropriate for her chronic conditions, making weaning very difficult. Therefore, a good bowel regimen is essential outpatient, with patient and her knowing this. 2. The patient has been battling this cancer for decades. She is being followed by an oncologist based out of [place]. 3. Will continue home levothyroxine. 4. At home, the patient is well-maintained on 4 liters oxygen, typically. She has not required much supplemental oxygen here. 5. This was discovered fairly recently, according to the patient's . She is undergoing palliative radiation therapy in [place]. 6. She has underwent multiple therapeutic thoracentesis fairly recently. Per , cytology report is pending in [place]. Loculations on the left will have to be broken down, likely with recombinant DNAse, for effective drainage. 7. This likely occurred secondary to a thoracentesis. Appears to be well-contained, non-expanding, and is not contributing to patient's current illness. 8. Calcium replenished inpatient. Appreciate nutrition consult recommendations regarding tube feed Ca supplementation. 9. The patient has multiple conditions that predispose to SIADH. Na has remained stable. 10. This was revealed on MRI brain that was completed inpatient due to concern for TIA at one point. Echocardiogram unremarkable. I did discuss with the patient and her that it is important to follow-up with outpatient neurology for this matter. 11. Appreciate nutrition consult's assistance. 12. Will continue home antidepressant, anxiolytic medications. VTE prophylaxis: Lovenox 40 mg daily Disposition: Home with home health care, once clinically stable Time Spent With Patient Critical Care time: I spent a total of [] minutes of critical care time on this patient's care today; this time is exclusive of procedural time.
--- NOTE | 2021-03-06 12:13 | DIET.PN1 ---
Addendum entered by Tish Hernandez 03/06/21 13:38: Pt tolerating cyclic PEG feeding via pump. Pt and spouse would like to continue cyclic pump feeding at home on current schedule to better meet pts nutrition needs secondary to poor tolerance of bolus PEG feeding. Pts spouse will purchase kefir to meet pts calcium needs, if not tolerating, will choose liquid calcium supplement. Original Note: Dietary Progress Note RD Note: RD contacted by nursing regarding pt with low calcium needing repletion complicated by pt being NPO requiring all medications and nourishments to go through PEG tube. Pts home TF formula [employer] Liquid Hope provides 810mg calcium per day which is 390mg below pts daily needs. Pts spouse could gravity feed equivalent of 390mg liquid calcium supplement into PEG daily or alternately, gravity feed 8oz Jess's whole milk kefir daily which provides 390mg calcium. Jess's kefir is commonly fed through PEG tubes in the hospital and home setting when antibiotics are given to reduce chance of c.diff infection. RD will communicate with pt and spouse regarding their preference. Electronically Signed by: Tish Hernandez 03/06/21 12:13 Clinical Dietitian [address] [address]
[2021-03-06] MEDS: CALCIUM GLUCONATE 9.3 MEQ in SODIUM CHLORIDE 0.9% 50 ML 140 ML IV (12:28)
[2021-03-06] MEDS: ALBUTEROL 2.5 MG/3 ML NEB (ADULT) INH (23:01)
[2021-03-07] VITALS: BP 155/78; PULSE 86; RESP 20; TEMP 37.2; O2SAT 96
[2021-03-07] MEDS: OXYCODONE 5 MG/5 ML ORAL SOLUTION PO (00:44)
[2021-03-07 04:55] VITALS: BP 173/85; PULSE 114; RESP 23; TEMP 37.2; O2SAT 97
--- NOTE | 2021-03-07 05:20 | PC.NURSE ---
03/07 @ 0500 Blood Sugar checked on patient. Blood Sugar is 83. Reported to Jose L Medina RN
--- NOTE | 2021-03-07 05:30 | PC.NURSE ---
0505 - Altered by to change in patient's behavior. Patient had removed gown, was rocking back and forth, and softly clapping with an animated smile on her face. stated this was not normal and appeared worried. Not responding to verbal or tactile stimuli when attempting to get her attention and reorientate. BP 173/85, HR 114, O2 97%, Temp 98.9, R 22, BGC 83. Patient did not appear in any immediate distress. Provider notified and came to bedside. RT notified and suctioning performed. UA sent to lab. 0525 - Patient behavior back to baseline and is resting comfortably.
[2021-03-07 05:32] LABS: Appearance Urine UA CLEAR; Bilirubin Urine UA NEGATIVE (NEGATIVE); Color Urine UA YELLOW; Glucose Urine UA NEGATIVE (Negative); Ketones Urine UA NEGATIVE (NEGATIVE); Leukocyte Esterase Urine UA TRACE (NEGATIVE); Nitrite Urine UA NEGATIVE (Negative); Occult Blood Urine UA 2+ (Negative); Protein Urine UA 2+ (Negative); Urobilinogen Urine UA 0.2 E.U./dL (0.2)
[2021-03-07 05:33] LABS: pH Urine UA 6.5 (4.5-8.0)
[2021-03-07 05:34] LABS: Bacteria Urine Few (2-10); Hyaline Casts Urine 0-1/LPF; RBC Urine 1-5/HPF (0-5/HPF)
[2021-03-07 05:35] LABS: Culture Indicated Urine Specimen Cultured; WBC Urine 0-1/HPF (0-5/HPF)
[2021-03-07] MEDS: LEVOTHYROXINE 100 MCG TABLET 200 MCG TUBE (05:47)
[2021-03-07] MEDS: LEVOTHYROXINE 88 MCG TABLET TUBE (05:48)
[2021-03-07] MEDS: fentaNYL 25 MCG/PATCH TOP (05:48)
[2021-03-07] MEDS: SODIUM CHLORIDE 0.9% 1,000 ML 100 ML IV (05:50)
[2021-03-07 06:11] LABS: Add Manual Diff / Slide Review NO; Basophils Absolute Auto 0 /uL (0-100); Basophils Percent Auto 0.6 % (0-2); Eosinophils Absolute Auto 400 /uL (0-450); Eosinophils Percent Auto 5.6 % (2-4); Hematocrit 37.2 % (36-46); Hemoglobin 12.5 g/dL (12.0-16.0); Lymphocytes Absolute Auto 400 /uL (1100-4500); Lymphocytes Percent Auto 5.6 % (25-40); Mean Corpuscular HGB Conc 33.6 % (30-36); Mean Corpuscular Hemoglobin 30.1 PG (26-34); Mean Corpuscular Volume 89.6 fL (80-100); Monocytes Absolute Auto 900 /uL (0-900); Neutrophils Absolute Auto 5500 /uL (1500-7000); Neutrophils Percent Auto 76.2 % (50-75); Platelet Count 366 X10^3/uL (150-400); Red Blood Cell Count 4.15 X10^6/uL (4.0-5.2); Red Cell Distribution Width 14.2 % (11.6-14.8); White Blood Cell Count 7.2 X10^3/uL (4.5-11.0)
[2021-03-07] MEDS: IPRATROPIUM 0.06% NASAL 15 ML 2 SPRAY NASAL (07:49)
[2021-03-07 08:06] VITALS: BP 194/92; PULSE 65; RESP 22; TEMP 36.7; O2SAT 96
[2021-03-07] MEDS: FERROUS SULFATE 300 MG/5 ML TUBE (08:16)
[2021-03-07] MEDS: DULOXETINE 30 MG CAPSULE PO (08:16)
[2021-03-07] MEDS: ENOXAPARIN 40 MG/0.4 ML SYRINGE SUBCUT (08:16)
[2021-03-07] MEDS: GABAPENTIN 600 MG TABLET 900 MG TUBE (08:16)
[2021-03-07] MEDS: METOPROLOL IR 25 MG TABLET 37.5 MG TUBE (08:16)
[2021-03-07 08:17] LABS: Alanine Aminotransferase 13 IU/L (<35); Albumin 3.5 g/dL (3.5-5.0); Alkaline Phosphatase 116 U/L (38-126); Aspartate Aminotransferase 20 IU/L (14-36); BUN Creatinine Ratio 18.8 (6-22); Bilirubin Total 0.3 mg/dL (0.2-1.3); Blood Urea Nitrogen 9 mg/dL (7-17); Calcium 8.2 mg/dL (8.4-10.2); Carbon Dioxide 28 mmol/L (22-32); Chloride 97 mmol/L (98-107); Estimated Glomerular Filt Rate > 60.0 mL/min (>60); Globulin 3.4 g/dL (1.7-4.1); Glucose 117 mg/dL (80-110); HEMOLYSIS < 15 (0-50); Potassium 3.8 mmol/L (3.4-5.1); Sodium 133 mmol/L (137-145); Total Protein 6.9 g/dL (6.3-8.2)
[2021-03-07] MEDS: SODIUM CHLORIDE 0.9% FLUSH 10 ML IV (08:17)
[2021-03-07] MEDS: OXYCODONE 5 MG/5 ML ORAL SOLUTION TUBE (08:19)
[2021-03-07] MEDS: MECLIZINE HCL 12.5 MG TABLET 25 MG TUBE (08:19)
[2021-03-07 10:00] VITALS: O2SAT 97
--- NOTE | 2021-03-07 10:30 | PC.NURSE ---
Addendum entered by Traci Pettit R.N. 03/07/21 11:36: 40mg lisinopril given via peg. Went over dc instructions with patients , questions answered.Patient taken via wc to vehicle driven by spouse. Patient had all belongings. Original Note: Patient c/o pain to lower back,10/27, given 5mg oxycodone oral solution through the peg tube. Residual checked prior to medical customer service representative, no residual noted. Patient lungs coarse throughout, suctioning patient. Patient BP elevated 194/92, metoprolol given rechecked BP197/108 Dr Nunn notified and orders received.
[2021-03-07] MEDS: lisinopriL 20 MG TABLET 40 MG PO (11:05)
--- NOTE | 2021-03-07 12:24 | P.PN_ITS ---
Subjective Subjective Interval history: Patient reports feeling completely back to baseline. She denies abd pain, fever/chills, urinary issues. She endorses passing gas and denies any further constipation. She reports wanting to go home, and so does her . Exam Vital Signs (past 8 hours): - 03/07/21 04:55 03/07/21 08:06 03/07/21 10:00 Temperature 98.9 F 98.1 F Pulse Rate 114 H 65 Respiratory Rate 23 22 Blood Pressure 173/85 H 194/92 H Pulse Oximetry 97 96 97 Fraction of Inspired Oxygen 28 Oxygen Delivery Method Humidification,Trach Collar Oxygen Flow Rate 2 Narrative Exam Narrative: Narrative Exam Narrative: Const Other: Patient sitting up in bed comfortably and drawing on on a paper pad upon my entering the room, in no apparent acute distress. Eyes Other: No scleral icterus appreciated. Neck Other: No carotid bruits appreciated. Tracheostomy in place with no surrounding erythema or purulence. Resp Other: Diminished breath sounds bilaterally, worse on the left. Scattered areas of good air exchange. No adventitious breath sounds appreciated. Cardio Other: Regular rate and rhythm. S1 and S2 heart sounds appreciated, with no extra heart sounds or murmurs noted. No peripheral edema appreciated. GI Other: PEG tube securely in place with no surrounding erythema or purulence. Soft, non- distended, non-tender. Bowel sounds present. Extrem Other: Palpable and equal radial and dorsalis pedis pulses bilaterally. Objective Labs Result Diagrams: 03/07/21 05:31 03/07/21 07:15 Labs: Laboratory Results - last 24 hr 03/07/21 03/07/21 03/07/21 05:30 05:31 07:15 WBC 7.2 RBC 4.15 Hgb 12.5 Hct 37.2 MCV 89.6 MCH 30.1 MCHC 33.6 RDW 14.2 Plt Count 366 Neut % (Auto) 76.2 H Lymph % (Auto) 5.6 L [place] % (Auto) 12.0 Eos % (Auto) 5.6 H Baso % (Auto) 0.6 Neut # (Auto) 5500 Lymph # (Auto) 400 L [place] # (Auto) 900 Eos # (Auto) 400 Baso # (Auto) 0 Sodium 133 L Potassium 3.8 Chloride 97 L Carbon Dioxide 28 BUN 9 Creatinine 0.48 L Estimated GFR > 60.0 BUN/Creatinine Ratio 18.8 Glucose 117 H Calcium 8.2 L Total Bilirubin 0.3 AST 20 ALT 13 Alkaline Phosphatase 116 Total Protein 6.9 Albumin 3.5 Globulin 3.4 Albumin/Globulin Ratio 1.0 Urine Color Yellow Urine Appearance Clear Urine pH 6.5 Ur Specific [place] 1.010 Urine Protein 2+ H Urine Glucose (UA) Negative Urine Ketones Negative Urine Occult Blood 2+ H Urine Nitrate Negative Urine Bilirubin Negative Urine Urobilinogen 0.2 Ur Leukocyte Esterase Trace H Urine RBC 1-5/hpf Urine WBC 0-1/hpf Urine Bacteria Few (2-10) H Hyaline Casts 0-1/lpf Ur Culture Indicated? 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) History of radiation therapy (~1992) Horners syndrome (~2010) Hypothyroid Kidney disease (~1974) Measles (~1952) Migraines MRSA (methicillin resistant Staphylococcus aureus) (~2015) Mumps (~1956) Peripheral neuropathy (~2010) Pituitary adenoma Rubella (~1959) Seizures (~1958) Thyroid cancer (~1969) Vocal cord paralysis (~2010) Surgical History Anesthesia History of foot surgery (~2013) History of neck surgery (~2009) History of surgery (~2010) History of thyroid surgery (~1982) History of thyroidectomy (~1969) Family History Father Cancer Diabetes mellitus History of heart disease Hyperlipidemia Hypertension Polycythemia vera Mother High cholesterol History of heart disease Sister Age: 75 High cholesterol Sister High cholesterol Mental health problem Sister Asthma Grandmother Parkinson's disease Grandfather Cancer Social History household members: spouse Smoking Status: Never smoker alcohol intake: never Assessment & Plan Assessment & Plan narrative: Assessment: 1. Constipation/obstipation, likely due to polypharmacy 2. Hx of metastatic thyroid cancer, status post thyroidectomy 3. Acquired hypothyroidism 4. Hx of reconstructive neck surgery leading to tracheostomy placement 5. 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 Bilateral pleural effusions, loculated on the left, likely malignancy- associated 7. Minimal right lung apical pneumothorax 8. Hypocalcemia, likely secondary to parathyroidectomy 9. Hyponatremia, likely due to SIADH 10. Small foci to periventricular white matter, likely due to chronic small vessel ischemic changes 11. PEG-tube dependent for nutrition 12. Hx of anxiety/depression Plan: 1. Found significant relief with enemas inpatient. Her medications are all appropriate for her chronic conditions, making weaning very difficult. Therefore, a good bowel regimen is essential outpatient, with patient and her knowing this. 2. The patient and her have been battling this cancer for decades. She is being followed by an oncologist based out of [place]. 3. Will continue home levothyroxine. 4. At home, the patient is well-maintained on 4 liters oxygen, typically. She has not required much supplemental oxygen here. 5. This was discovered fairly recently, according to the patient's . She is undergoing palliative radiation therapy in [place]. 6. She has underwent multiple therapeutic thoracentesis fairly recently. Per , cytology report is pending in [place]. Loculations on the left will have to be broken down, likely with recombinant DNAse, for effective drainage. 7. This likely occurred secondary to a thoracentesis. Appears to be well- contained, non-expanding, and is not contributing to patient's current illness. 8. Calcium replenished inpatient. Appreciate nutrition consult recommendations regarding tube feed Ca supplementation. 9. The patient has multiple conditions that predispose to SIADH. Na has remained stable. 10. This was revealed on MRI brain that was completed inpatient due to concern for TIA at one point. Echocardiogram unremarkable. I did discuss with the patient and her that it is important to follow-up with outpatient neurology for this matter. 11. Appreciate nutrition consult's assistance. 12. Will continue home antidepressant, anxiolytic medications. VTE prophylaxis: Lovenox 40 mg daily Disposition: Home with home health care, once clinically stable Time Spent With Patient Critical Care time: I spent a total of [] minutes of critical care time on this patient's care today; this time is exclusive of procedural time.
--- NOTE | 2021-03-07 12:29 | P.DS_ITS ---
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 Although her polypharmacy is contributing to her presenting complaint, the medications are essential for her many chronic but stable conditions, making weaning off said meds very difficult. There was concern for possible TIA at one point inpatient but MRI brain revealed small foci of hypodensities to the periventricular white matter, likely due to chronic small vessel ischemic changes. However, multiple sclerosis is certainly a consideration, although it would by an atypical presentation, and patient and her were strongly advised to follow-up with a neurologist outpatient for further workup, if deemed necessary. The patient receives her oncologic care in [place]. Discharge Providers Provider Date of admission: 03/04/21 03:10 Discharge Date: 03/07/21 Primary care physician: Armani Wilkins MD Consults: 03/04/21 03:02 Consult to Speech Therapy Evaluate & Treat Comment: Physician Instructions: Evaluate and treat 03/04/21 05:35 Consult to Dietitian, Adult Routine Comment: Reason For Exam: Tube feeding 03/05/21 10:41 Consult to Occupational Therapy Evaluate & Treat Comment: Physician Instructions: Evaluate and treat Consult to Physical Therapy Evaluate & Treat Comment: Physician Instructions: Evaluate and Treat 03/05/21 13:46 Consult to Respiratory Therapy Evaluate & Treat Comment: Physician Instructions: evaluate for home oxygen use please Discharge provider: Cristobal Vázquez MD Summary Hospital Course Discharge Diagnosis: 1. Constipation/obstipation, likely due to polypharmacy 2. Hx of metastatic thyroid cancer, status post thyroidectomy 3. Acquired hypothyroidism 4. Hx of reconstructive neck surgery leading to tracheostomy placement 5. 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 Bilateral pleural effusions, loculated on the left, likely malignancy- associated 7. Minimal right lung apical pneumothorax 8. Hypocalcemia, likely secondary to parathyroidectomy 9. Hyponatremia, likely due to SIADH 10. Small foci to periventricular white matter, likely due to chronic small ve ssel ischemic changes 11. PEG-tube dependent for nutrition 12. 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 Although her polypharmacy is contributing to her presenting complaint, the medications are essential for her many chronic but stable conditions, making weaning off said meds very difficult. There was concern for possible TIA at one point inpatient but MRI brain revealed small foci of hypodensities to the periventricular white matter, likely due to chronic small vessel ischemic changes. However, multiple sclerosis is certainly a consideration, although it would by an atypical presentation, and patient and her were strongly advised to follow-up with a neurologist outpatient for further workup, if deemed necessary. The patient receives her oncologic care in [place]. Exam Vital Signs (past 8 hours): - 03/07/21 04:55 03/07/21 08:06 03/07/21 10:00 Temperature 98.9 F 98.1 F Pulse Rate 114 H 65 Respiratory Rate 23 22 Blood Pressure 173/85 H 194/92 H Pulse Oximetry 97 96 97 Fraction of Inspired Oxygen 28 Oxygen Delivery Method Humidification,Trach Collar Oxygen Flow Rate 2 Objective Labs Result Diagrams: 03/07/21 05:31 03/07/21 07:15 Labs: Laboratory Results - last 24 hr 03/07/21 03/07/21 03/07/21 05:30 05:31 07:15 WBC 7.2 RBC 4.15 Hgb 12.5 Hct 37.2 MCV 89.6 MCH 30.1 MCHC 33.6 RDW 14.2 Plt Count 366 Neut % (Auto) 76.2 H Lymph % (Auto) 5.6 L [place] % (Auto) 12.0 Eos % (Auto) 5.6 H Baso % (Auto) 0.6 Neut # (Auto) 5500 Lymph # (Auto) 400 L [place] # (Auto) 900 Eos # (Auto) 400 Baso # (Auto) 0 Sodium 133 L Potassium 3.8 Chloride 97 L Carbon Dioxide 28 BUN 9 Creatinine 0.48 L Estimated GFR > 60.0 BUN/Creatinine Ratio 18.8 Glucose 117 H Calcium 8.2 L Total Bilirubin 0.3 AST 20 ALT 13 Alkaline Phosphatase 116 Total Protein 6.9 Albumin 3.5 Globulin 3.4 Albumin/Globulin Ratio 1.0 Urine Color Yellow Urine Appearance Clear Urine pH 6.5 Ur Specific Burney 1.010 Urine Protein 2+ H Urine Glucose (UA) Negative Urine Ketones Negative Urine Occult Blood 2+ H Urine Nitrate Negative Urine Bilirubin Negative Urine Urobilinogen 0.2 Ur Leukocyte Esterase Trace H Urine RBC 1-5/hpf Urine WBC 0-1/hpf Urine Bacteria Few (2-10) H Hyaline Casts 0-1/lpf Ur Culture Indicated? 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) History of radiation therapy (~1992) Horners syndrome (~2010) Hypothyroid Kidney disease (~1974) Measles (~1952) Migraines MRSA (methicillin resistant Staphylococcus aureus) (~2015) Mumps (~1956) Peripheral neuropathy (~2010) Pituitary adenoma Rubella (~1959) Seizures (~1958) Thyroid cancer (~1969) Vocal cord paralysis (~2010) Surgical History Anesthesia History of foot surgery (~2013) History of neck surgery (~2009) History of surgery (~2010) History of thyroid surgery (~1982) History of thyroidectomy (~1969) Family History Father Cancer Diabetes mellitus History of heart disease Hyperlipidemia Hypertension Polycythemia vera Mother High cholesterol History of heart disease Sister Age: 75 High cholesterol Sister High cholesterol Mental health problem Sister Asthma Grandmother Parkinson's disease Grandfather Cancer Social History household members: spouse Smoking Status: Never smoker alcohol intake: never Discharge Assessment & Plan Assessment and Plan Assessment: Assessment: 1. Constipation/obstipation, likely due to polypharmacy 2. Hx of metastatic thyroid cancer, status post thyroidectomy 3. Acquired hypothyroidism 4. Hx of reconstructive neck surgery leading to tracheostomy placement 5. 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 Bilateral pleural effusions, loculated on the left, likely malignancy-associa ariana 7. Minimal right lung apical pneumothorax 8. Hypocalcemia, likely secondary to parathyroidectomy 9. Hyponatremia, likely due to SIADH 10. Small foci to periventricular white matter, likely due to chronic small vessel ischemic changes 11. PEG-tube dependent for nutrition 12. Hx of anxiety/depression Plan of Treatment: Plan: 1. Found significant relief with enemas inpatient. Her medications are all appropriate for her chronic conditions, making weaning very difficult. Therefore, a good bowel regimen is essential outpatient, and patient and her understand. 2. The patient and her have been battling this cancer for decades. She is being followed by an oncologist based out of [place]. 3. Will continue home levothyroxine. 4. At home, the patient is well-maintained on 4 liters oxygen, typically. She has not required much supplemental oxygen here. 5. This was discovered fairly recently, according to the patient's . She is undergoing palliative radiation therapy in [place]. 6. She has underwent multiple therapeutic thoracentesis fairly recently. Per , cytology report is pending in [place]. Loculations on the left will have to be broken down, likely with recombinant DNAse, for effective drainage. 7. This likely occurred secondary to a thoracentesis. Appears to be well- contained, non-expanding, and is not contributing to patient's current illness. 8. Calcium replenished inpatient. Appreciate nutrition consult recommendations regarding tube feed Ca supplementation. 9. The patient has multiple conditions that predispose to SIADH. Na has remained stable. 10. This was revealed on MRI brain that was completed inpatient due to concern for TIA at one point. Echocardiogram unremarkable. I did discuss with the patient and her that it is important to follow-up with outpatient neurology for this matter. 11. Appreciate nutrition consult's assistance. 12. Will continue home antidepressant, anxiolytic medications. Disposition: Home with home health care Discharge Plan Discharge Plan Patient Disposition: Home Discharge orders & Medications Prescriptions: Continued famotidine 20 mg tablet 20 mg feeding tube DAILY Qty: 90 3RF imipramine HCl 50 mg tablet 50 mg feeding tube BEDTIME Qty: 90 3RF meclizine 25 mg tablet 25 mg Feeding Tube Q6H PRN (Reason: Dizziness) Qty: 240 3RF nystatin 100,000 unit/gram cream 1 applic topical DAILY Qty: 30 11RF nystatin 100,000 unit/mL suspension 5 ml PO BEDTIME Qty: 250 11RF Rx Instructions: swish/spit ondansetron 4 mg tablet,disintegrating 4 mg Feeding Tube TID PRN (Reason: Nausea) Qty: 270 3RF silver nitrate applicators 75-25 % stick 1 applic TOP 2XW Qty: 100 11RF sodium chloride 0.9 % (flush) Syringe 20 ml IV .COMPLEX PRN (Reason: IV line flush) Qty: 5400 3RF Rx Instructions: Use 20 mL to irrigate suction T track tube, 2-3 times daily as needed (DME) DISABLED PARKING PERMIT See Rx Instructions .ROUTE .MEDSUPPLY Qty: 1 0RF Rx Instructions: I FIND THIS PATIENT TO BE MEDICALLY DISABLED AND QUALIFIED FOR DISABLE PARKING INDICATED, AND SIGNED ON THE ACCOMPANYING [employer] APPLICATION FOR INDIVIDUALS venlafaxine 75 mg tablet 75 mg feeding tube TID Qty: 270 3RF Hold Instructions: Transition to Cymbalta Rx Instructions: Take one tablet by feeding tube three times a day. cetirizine [Wal-Zyr (cetirizine)] 1 mg/mL solution 5 mg feeding tube Q12H PRN (Reason: Secretions) Qty: 960 3RF clobetasol 0.05 % cream 1 applic topical DAILY Qty: 60 3RF cyclobenzaprine 5 mg tablet 5 mg feeding tube TIDP PRN (Reason: muscle spasm) Qty: 270 3RF ferrous sulfate 220 mg (44 mg iron)/5 mL elixir 330 mg feeding tube TID Qty: 2025 3RF Rx Instructions: AM, 1600, 2000 gabapentin 250 mg/5 mL solution 900 mg Feeding Tube BID Qty: 3240 11RF hydrocortisone 2.5 % cream 1 applic TOPICAL PRN PRN (Reason: Rash) Qty: 90 3RF ipratropium bromide 42 mcg (0.06 %) spray,non-aerosol 2 spray INTRANASAL TID Qty: 90 3RF Rx Instructions: 0900, 1600, 2000 metoprolol tartrate 25 mg tablet 37.5 mg PO BID Qty: 270 3RF Rx Instructions: Administer 37.5mg via G-tube, twice daily TobraDex 0.3-0.1 % ointment 1 applic .ROUTE .COMPLEX Qty: 10.5 3RF Rx Instructions: 1 applic daily to PEG stoma; clonazepam 0.5 mg tablet,disintegrating 0.5 mg Feeding Tube TID Qty: 270 0RF Rx Instructions: am, 1600, 2000 (DME) Sodium Bicarbonate Inj 8.4% See Rx Instructions .Route .MEDSUPPLY Qty: 300 4RF Rx Instructions: MIX 1.5ML WITH 1.5ML SODIUM HCL 0.9% INJECT AND PLACE IN T-TUBE TRACH FOR 15 MINUTES TO CLEAN TRACH 1-2 TIMES DAILY (DME) Innospire Go Nebulizer Misc See Rx Instructions .Route Qty: 1 0RF Rx Instructions: As directed diazepam 5 mg/mL concentrate 2.5 mg PO BID PRN (Reason: anxiety, muscle spasm) Qty: 30 4RF Rx Instructions: Exempt levofloxacin 250 mg/10 mL solution 750 mg PO DAILY 10 Days Qty: 300 0RF Label Comments: 7 days remaining levothyroxine 200 mcg tablet 288 mcg Feeding Tube DAILY Qty: 90 3RF fentanyl 25 mcg/hr patch 72 hour 1 patch transdermal Q72H Qty: 10 0RF duloxetine 30 mg capsule, delayed rel sprinkle 30 mg PO DAILY Qty: 15 0RF acetaminophen 500 mg/15 mL liquid 1,000 mg PO Q6H PRN (Reason: Headache) 0RF glycerin (adult) Suppository 1 supp HI Q3D PRN (Reason: Constipation) 0RF sennosides [Senna Laxative] 8.6 mg Tablet 8.6 mg PO BEDTIME 0RF polyethylene glycol 3350 [Miralax] 17 gram Powder In Packet 17 g PO DAILY PRN (Reason: Constipation) 0RF chlorpheniramine-pseudoephed 2-30 mg/5 mL Liquid 30 ml feeding tube QPM 0RF Discontinued albuterol sulfate 2.5 mg /3 mL (0.083 %) solution for nebulization 2.5 mg inhalation TID PRN (Reason: shortness of breath or wheezing) Qty: 75 0RF Rx Instructions: inhale contents of 1 vial 3ml in nebulizer by mouth and into lungs 3 times a day if needed Follow up/Referrals: Armani Wilkins MD [Primary Care Provider] - Visit Report/Discharge Packet Instructions: DI for Hyponatremia Discharge Data Primary Care Provider: Armani Wilkins
== END 2021-03-07 11:38 | disposition home or self-care (01) | DRG 644 ==
LOC: ED 20:26 → AC 03-04 03:11
PROVIDERS: Internal Medicine; Admitting Provider Nurse Practitioner Family; Emergency Provider Emergency Medicine; Family Provider Student in an Organized Health Care Education/Training Program; PCP Student in an Organized Health Care Education/Training Program; Referring Provider Emergency Medicine; Visit Provider Nurse Practitioner Family
DX: E22.2 Syndrome of inappropriate secretion of antidiuretic hormone (principal); J91.0 Malignant pleural effusion; J93.9 Pneumothorax, unspecified; J96.11 Chronic respiratory failure with hypoxia; K59.03 Drug induced constipation; Z85.850 Personal history of malignant neoplasm of thyroid; R29.810 Facial weakness; J38.00 Paralysis of vocal cords and larynx, unspecified; Z93.0 Tracheostomy status; Z93.1 Gastrostomy status; E03.9 Hypothyroidism, unspecified; F32.A Depression, unspecified; F41.9 Anxiety disorder, unspecified; J44.9 Chronic obstructive pulmonary disease, unspecified; E83.51 Hypocalcemia; Z66 Do not resuscitate; Z20.822 Contact with and (suspected) exposure to COVID-19
CPT/HCPCS: 36415; 70450; 70496; 70498; 70551; 74022; 80048; 80053; 80305; 81001; 82550; 82570; 82962; 83735; 84300; 84484; 85025; 87077; 87086; 87147; 87186; 87635; 92523; 93005; 93306; 94640; 94760; 94762; 94799; 96360; 97161; 99285; C9803; J0610; J1650; J2270; J2405; J7613; Q9967

== ENCOUNTER 2021-03-09 16:09 | Inpatient (IN) | payer MEDICARE, OTHER, MEDICAID, SELFPAY ==
[2021-03-04 03:13] VITALS: BMI 17.5
[2021-03-09] VITALS (18 sets, daily range): BP systolic 132–198; BP diastolic 67–120; PULSE 97–120; RESP 15–68; TEMP 36.9; O2SAT 76–99
--- NOTE | 2021-03-09 16:16 | DI.RAD.S_ITS ---
PROCEDURE: XR CHEST 1V INDICATIONS: shortness of breath TECHNIQUE: One view of the chest was acquired. COMPARISON: [facility], CT, CT CHEST ABD PEL W CON, 02/26/2021, 22:50. [facility], CR, XR CHEST 2V, 02/26/2021, 12:13. [facility], CR, XR CHEST 1V, 02/26/2021, 21:35. [facility], CR, XR CHEST 1V, 02/27/2021, 15:08. FINDINGS: Surgical changes and devices: A tracheostomy tube is seen. Lower neck clips are seen. Right chest wall and right axillary clips are seen. Lungs and pleura: There is interval development of a moderately sized right-sided pleural effusion. There is peripheral opacity seen involving the left upper lobe, as before. Generalized interstitial prominence can be seen throughout the lungs. Low lung volumes are noted. This causes a crowded appearance to the lung markings and limits evaluation. Mediastinum: Mediastinal contours appear normal. Heart size is normal. Bones and chest wall: No suspicious bony lesions. Age-appropriate bony degenerative changes are seen. Overlying soft tissues appear unremarkable. IMPRESSION: Interval development of a moderately sized right-sided pleural effusion. Stable opacity can be seen involving the peripheral left lung, which is attributed to a persistent loculated pleural effusion. Low lung volumes with generalized interstitial prominence. Postoperative and degenerative changes are seen. Dictated by: Yosef Mckeon M.D. on 03/09/2021 at 16:19 Approved by: Yosef Mckeon M.D. on 03/09/2021 at 16:21
--- NOTE | 2021-03-09 16:25 | ED_ITS ---
HPI - SOB/Dyspnea <Fritz Farnsworth MD - Last Filed: 03/09/21 20:23> General Chief Complaint: Shortness of Breath/Dyspnea Stated Complaint: short of breath Time Seen by Provider: 03/09/21 16:23 History of Present Illness HPI Narrative: The patient arrives by EMS with complaint of dyspnea. She is nonverbal, she has a trach in place. 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 She was seen here several days ago. She has a feeding tube in place and developed constipation. Her respiratory status was evaluated. She had a loculated left pleural effusion, and a right basilar pleural effusion. Thoracentesis revealed 1400 mL of clear fluid. Had significant hyponatremia (Na+124). She developed a right facial droop and was admitted with TIA. MRI of the brain was obtained. Head &neck CTA revealed no significant lesions. Brain MRI revealed small foci of hypodensities, possibly chronic vascular disease. Reviewing the medical record, the chronic pleural effusions are likely associated with the pleural metastatic disease. Chronic hypocalcemia is pro bably related to parathyroidectomy, chronic hyponatremia is likely due to SIADH. She receives cancer care in [place]. Related Data Home Medications Medication Instructions Recorded Confirmed glycerin (adult) 1 supp PA Q3D PRN 01/05/19 03/04/21 acetaminophen 500 mg/15 mL oral 1,000 mg PO Q6H PRN ml 02/28/20 03/04/21 liquid chlorpheniramine-pseudoephedrine 2 30 ml FEEDING TUBE QPM 02/27/21 03/04/21 mg-30 mg/5 mL oral liquid polyethylene glycol 3350 17 gram 17 g PO DAILY PRN 02/27/21 03/04/21 oral powder packet (Miralax) sennosides 8.6 mg tablet (Senna 8.6 mg PO BEDTIME 02/27/21 03/04/21 Laxative) Previous Rx's Medication Instructions Recorded famotidine 20 mg tablet 20 mg FEEDING TUBE DAILY #90 tab 05/02/20 imipramine HCl 50 mg tablet 50 mg FEEDING TUBE BEDTIME #90 tab 05/02/20 meclizine 25 mg tablet 25 mg FEEDING TUBE Q6H PRN #240 tab 05/02/20 nystatin 100,000 unit/gram topical 1 applic TOPICAL DAILY #30 g 05/02/20 cream nystatin 100,000 unit/mL oral 5 ml PO BEDTIME #250 ml 05/02/20 suspension ondansetron 4 mg disintegrating 4 mg FEEDING TUBE TID PRN #270 tab 05/02/20 tablet silver nitrate applicators 75 %-25 1 applic TOP 2XW #100 each 05/02/20 % topical stick sodium chloride 0.9 % (flush) 20 ml IV .COMPLEX PRN #5400 ml 08/02/20 DISABLED PARKING PERMIT #1 ea 09/10/20 venlafaxine 75 mg tablet 75 mg FEEDING TUBE TID #270 tab 10/26/20 cetirizine 1 mg/mL oral solution 5 mg (5 mL) FEEDING TUBE Q12H PRN 12/18/20 (Kai-Zyr (cetirizine)) #960 ml clobetasol 0.05 % topical cream 1 applic TOPICAL DAILY #60 g 12/18/20 cyclobenzaprine 5 mg tablet 5 mg FEEDING TUBE TIDP PRN #270 tab 12/18/20 ferrous sulfate 220 mg (44 mg 330 mg (7.5 mL) FEEDING TUBE TID 12/18/20 iron)/5 mL oral elixir #2025 ml gabapentin 250 mg/5 mL oral 900 mg (18 mL) FEEDING TUBE BID 12/18/20 solution #3240 ml hydrocortisone 2.5 % topical cream 1 applic TOPICAL PRN PRN #90 g 12/18/20 ipratropium bromide 42 mcg (0.06 2 spray INTRANASAL TID #90 ml 12/18/20 %) nasal spray metoprolol tartrate 25 mg tablet 37.5 mg PO BID #270 tab 12/18/20 tobramycin-dexamethasone 0.3 %-0.1 1 applic .ROUTE .COMPLEX #10.5 g 12/18/20 % eye ointment (TobraDex) Sodium Bicarbonate Inj 8.4% #300 ea 02/12/21 clonazepam 0.5 mg disintegrating 0.5 mg FEEDING TUBE TID #270 tab 02/12/21 tablet nebulizers (Innospire Go Nebulizer) #1 ea 02/12/21 diazepam 5 mg/mL oral concentrate 2.5 mg (0.5 mL) PO BID PRN #30 ml 02/19/21 duloxetine 30 mg capsule,delayed 30 mg PO DAILY #15 cap 02/26/21 release sprinkle fentanyl 25 mcg/hr transdermal 1 patch TRANSDERMAL Q72H #10 ea 02/26/21 patch levothyroxine 200 mcg tablet 288 mcg FEEDING TUBE DAILY #90 tab 02/26/21 Allergies Allergy/AdvReac Type Severity Reaction Status Date / Time amoxicillin [From Augmentin] Allergy Intermediate Severe Verified 02/26/21 11:18 Diarrhea cat dander Allergy Intermediate Verified 02/26/21 11:18 clavulanic acid Allergy Intermediate Severe Verified 02/26/21 11:18 [From Augmentin] Diarrhea Sulfa (Sulfonamide Allergy Unknown Diarrhea Verified 02/27/21 14:46 Antibiotics) Review of Systems <Fritz Farnsworth MD - Last Filed: 03/09/21 20:23> Review of Systems Narrative: Unobtainable due to the patient's medical condition. 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) History of radiation therapy (~1992) Horners syndrome (~2010) Hypothyroid Kidney disease (~1974) Measles (~1952) Migraines MRSA (methicillin resistant Staphylococcus aureus) (~2015) Mumps (~1956) Peripheral neuropathy (~2010) Pituitary adenoma Rubella (~1959) Seizures (~1958) Thyroid cancer (~1969) Vocal cord paralysis (~2010) Surgical History Anesthesia History of foot surgery (~2013) History of neck surgery (~2009) History of surgery (~2010) History of thyroid surgery (~1982) History of thyroidectomy (~1969) Family History Father Cancer Diabetes mellitus History of heart disease Hyperlipidemia Hypertension Polycythemia vera Mother High cholesterol History of heart disease Sister Age: 75 High cholesterol Sister High cholesterol Mental health problem Sister Asthma Grandmother Parkinson's disease Grandfather Cancer Social History household members: spouse Smoking Status: Never smoker alcohol intake: never Smoking Status: Never smoker alcohol intake frequency: holidays/special occasions only Substance Use Type: does not use Exam <Fritz Farnsworth MD - Last Filed: 03/09/21 20:23> Initial Vital Signs Initial Vital Signs: Vital Signs Temperature 98.4 F 03/09/21 16:15 Pulse Rate 98 H 03/09/21 16:15 Respiratory Rate 22 03/09/21 16:15 Blood Pressure 152/71 H 03/09/21 16:15 Pulse Oximetry 99 03/09/21 16:15 Const General: other (Uncomfortable. Mild respiratory distress.) HENMT Head: normocephalic and atraumatic Mouth: other (She clenches her teeth, she will not open her mouth.) Eyes Conjunctivae: conjunctivae normal Sclera: sclerae normal Pupils: PERRL EOM: EOM intact bilaterally Neck Other: Tracheostomy site, trach tube in place. Chest Chest: normal inspection of the chest Resp Other: Mild tachypnea. Bilateral wheezes. Diminished breath sounds bilaterally. Cardio Rate: regular rate Rhythm: regular rhythm Heart Sounds: S1 normal and S2 normal GI Other: Feeding tube in place. No distension. Normal bowel sounds. Back/Spine/Pelvis Back: No CVA tenderness Thoracic/Lumbar Spine: thoracic and lumbar spine normal to inspection Skin General: other (Pallor. No rashes or lesions.) Neuro General: patient alert and no focal motor deficits Extrem General: normal to inspection, no pedal edema and no calf tenderness Course <Fritz Farnsworth MD - Last Filed: 03/09/21 20:23> Course Course Narrative: The patient's medical record has been thoroughly reviewed. Chest CT shows traumatic recurrence of the right pleural effusion, evolution of the process occurring her left lung. She has thyroid cancer with lung pleural Mets. Discussing the situation with her , he has clear understanding. The disease is processing through her chest. He has that her mental status has deteriorated significantly since her last hospitalization. Chest CT revealed return of a large right pleural effusion in just a few days. There is progression of the disease in her left chest also. The patient did not respond to me significantly during the interview. Her has medical POA, he shows me represents her interest. He is agreeing to hospice care. I talked to ALFRED Gupta, hospitalist. The patient will be admitted for comfort care until hospice care is fully initiated. She is currently boarding in the ER as there are no hospital beds. Dr. Cox, my partner here in the ER is fully aware of the patient's situation. Orders Ordered: ED Orders 03/09/21 16:15 COVID19 - ADMIT ([employer] ARCHITECT swab/PCR) Stat COVID19 -Nasal swab/Pre-Proc Stat EKG-12 Lead Stat RT Consult Eval and Treat Now 03/09/21 16:16 XR chest 1V Stat 03/09/21 16:36 Sputum Culture Stat 03/09/21 16:40 Complete Blood Count AUTO DIFF Stat Comprehensive Metabolic Panel Stat Lactate (Lactic Acid) Stat 03/09/21 17:29 CT angio chest PE protocol Stat Acetaminophen (Acetaminophen 650 Mg Supp) 650 mg PA Q4HR PRN PRN Reason: Fever/Mild Pain (1-3) Artificial Tears (Polyvinyl Alcohol Drops) 1 drops EYE-BOTH Q2HR PRN PRN Reason: Dry Eye(s) Atropine Sulfate (Atropine 1% Ophth) 2 drops SL Q2HR PRN PRN Reason: Secretions Bisacodyl (Bisacodyl 10 Mg Supp) 10 mg PA BID PRN PRN Reason: Constipation Diphenhydramine HCl (Diphenhydramine 50 Mg/Ml Vial) 25 mg IV Q4HR PRN PRN Reason: Itching Fentanyl (Fentanyl 25 Mcg/Patch) 25 mcg TOP Q72H CELY Morphine Sulfate 50 mg/ (Dextrose) 50 mls @ 2 mls/hr IV TITRATE CELY; Protocol Last Admin: 03/09/21 21:53 Dose: 2 mg/hr, 2 mls/hr Documented by: ATAYLOR Levothyroxine Sodium (Levothyroxine 100 Mcg Tablet) 200 mcg PO 0600 CELY Levothyroxine Sodium (Levothyroxine 88 Mcg Tablet) 88 mcg PO 0600 CELY Loratadine (Loratadine 10 Mg Tablet) 10 mg PO Q12H PRN PRN Reason: SECRETIONS Lorazepam (Lorazepam 2 Mg/Ml Inj) 1 mg IV Q1HR PRN PRN Reason: Agitation/Anxiety Last Admin: 03/09/21 23:03 Dose: 1 mg Documented by: Admin: 03/09/21 21:52 Dose: 1 mg Documented by: VIDYA Metoclopramide HCl (Metoclopramide 10 Mg/2 Ml Inj) 10 mg IV Q4HR PRN PRN Reason: Nausea And Vomiting Metoprolol Tartrate (Metoprolol Ir 25 Mg Tablet) 37.5 mg PO BID CELY Morphine Sulfate (Morphine 2 Mg/Ml Inj) 2 mg IV Q30MIN PRN PRN Reason: Pain/Dyspnea Naloxone HCl (Naloxone 0.4 Mg/Ml Vial) 0.2 mg IV Q2MIN PRN PRN Reason: Opiate Reversal Non-Formulary Medication (Diazepam) 2.5 mg PO BID PRN PRN Reason: anxiety, muscle spasm Non-Formulary Medication (Tobramycin-Dexamethasone [Tobradex]) 1 applictn TUBE DAILY [facility] Nystatin (Nystatin Susp 500,000 Unit/5 Ml Udc) 500,000 unit PO BEDTIME CELY Ondansetron HCl (Ondansetron 4 Mg/2 Ml Inj) 4 mg IV Q4HR PRN PRN Reason: Nausea And Vomiting Scopolamine (Scopolamine 1 Patch) 1 patch TOP Q72H PRN PRN Reason: Secretions Last Admin: 03/09/21 22:45 Dose: 1 patch Documented by: VIDYA Sodium Chloride (Sodium Chloride 0.9% Flush) 20 ml IV PRN PRN PRN Reason: IV line flush Discontinued Medications Albuterol/Ipratropium (Albuterol/Ipratropium 3 Ml Ampul) 3 ml INH NOW ONE Stop: 03/09/21 16:31 Last Admin: 03/09/21 16:44 Dose: 3 ml Documented by: ANDREZ Clonazepam (Clonazepam 0.5 Mg Tablet) 0.5 mg PO TID [facility] Levothyroxine Sodium (Levothyroxine 100 Mcg Tablet) 288 mcg TUBE DAILY CELY Morphine Sulfate (Morphine 2 Mg/Ml Inj) 2 mg IV NOW ONE Stop: 03/09/21 19:58 Last Admin: 03/09/21 20:06 Dose: 2 mg Documented by: VIDYA Non-Formulary Medication (Clonazepam) 0.5 mg Feeding Tube TID CELY Non-Formulary Medication (Cetirizine [Wal-Zyr (Cetirizine)]) 5 mg feeding tube Q12H PRN PRN Reason: Secretions Sodium Chloride (Sodium Chloride 0.9% Flush) 20 ml IV .COMPLEX PRN PRN Reason: IV line flush Vital Signs Vital signs: Vital Signs - 8 hr 03/09/21 17:00 03/09/21 17:30 03/09/21 18:30 Pulse Rate 97 H 97 H 109 H Respiratory Rate 19 15 29 H Blood Pressure 132/70 154/77 H Pulse Oximetry 96 96 03/09/21 19:00 03/09/21 19:30 03/09/21 19:34 Pulse Rate 102 H 110 H 109 H Respiratory Rate 23 37 H 30 H Blood Pressure 189/85 H Pulse Oximetry 96 03/09/21 20:00 Pulse Rate 120 H Respiratory Rate 35 H Blood Pressure 198/120 H Pulse Oximetry 94 MDM - SOB/Dyspnea <Fritz Farnsworth MD - Last Filed: 03/09/21 20:23> Lab Data Result diagrams: 03/09/21 16:40 03/09/21 16:40 Labs: Lab Results 03/09/21 03/09/21 03/09/21 Range/Units 16:15 16:15 16:40 WBC 11.4 H (4.5-11.0) X10^3/uL RBC 4.23 (4.0-5.2) X10^6/uL Hgb 12.6 (12.0-16.0) g/dL Hct 37.7 (36-46) % MCV 89.1 (80-100) fL MCH 29.7 (26-34) PG MCHC 33.3 (30-36) % RDW 14.4 (11.6-14.8) % Plt Count 346 (150-400) X10^3/uL Neut % (Auto) 91.9 H (50-75) % Lymph % (Auto) 1.6 L (25-40) % Brown % (Auto) 5.1 (3-14) % Eos % (Auto) 1.1 L (2-4) % Baso % (Auto) 0.3 (0-2) % Neut # (Auto) 72791 H (1408-7900) /uL Lymph # (Auto) 200 L (9687-7268) /uL Brown # (Auto) 600 (0-900) /uL Eos # (Auto) 100 (0-450) /uL Baso # (Auto) 0 (0-100) /uL Sodium (137-145) mmol/L Potassium (3.4-5.1) mmol/L Chloride (98-107) mmol/L Carbon Dioxide (22-32) mmol/L BUN (7-17) mg/dL Creatinine (0.52-1.04) mg/dL Estimated GFR (>60) mL/min BUN/Creatinine Ratio (6-22) Glucose (80-110) mg/dL Lactate (0.7-2.1) mmol/L Calcium (8.4-10.2) mg/dL Total Bilirubin (0.2-1.3) mg/dL AST (14-36) IU/L ALT (<35) IU/L Alkaline Phosphatase (38-126) U/L Total Protein (6.3-8.2) g/dL Albumin (3.5-5.0) g/dL Globulin (1.7-4.1) g/dL Albumin/Globulin Ratio (1.0-2.8) SARS-CoV-2 (PCR) Negative Negative (Negative) 03/09/21 03/09/21 Range/Units 16:40 16:40 WBC (4.5-11.0) X10^3/uL RBC (4.0-5.2) X10^6/uL Hgb (12.0-16.0) g/dL Hct (36-46) % MCV (80-100) fL MCH (26-34) PG MCHC (30-36) % RDW (11.6-14.8) % Plt Count (150-400) X10^3/uL Neut % (Auto) (50-75) % Lymph % (Auto) (25-40) % Brown % (Auto) (3-14) % Eos % (Auto) (2-4) % Baso % (Auto) (0-2) % Neut # (Auto) (0263-0294) /uL Lymph # (Auto) (9253-2739) /uL Brown # (Auto) (0-900) /uL Eos # (Auto) (0-450) /uL Baso # (Auto) (0-100) /uL Sodium 122 L D (137-145) mmol/L Potassium 4.8 (3.4-5.1) mmol/L Chloride 84 L (98-107) mmol/L Carbon Dioxide 31 (22-32) mmol/L BUN 18 H (7-17) mg/dL Creatinine 0.68 (0.52-1.04) mg/dL Estimated GFR > 60.0 (>60) mL/min BUN/Creatinine Ratio 26.5 H (6-22) Glucose 108 (80-110) mg/dL Lactate 1.8 (0.7-2.1) mmol/L Calcium 7.4 L (8.4-10.2) mg/dL Total Bilirubin 0.3 (0.2-1.3) mg/dL AST 30 (14-36) IU/L ALT 17 (<35) IU/L Alkaline Phosphatase 113 (38-126) U/L Total Protein 6.7 (6.3-8.2) g/dL Albumin 3.6 (3.5-5.0) g/dL Globulin 3.1 (1.7-4.1) g/dL Albumin/Globulin Ratio 1.2 (1.0-2.8) SARS-CoV-2 (PCR) (Negative) Imaging Data CT scan - chest: Radiologist's Impression: Launch?[place] [address] CT Scan Report Signed Patient: Aimee Day MR#: [id number] : 1950 Acct:[id number] Age/Sex: 70 / F Date of Service: 03/09/21 Loc: ED Accession Number: [id number] ?? Procedure: CT angio chest PE protocol Ordering Provider: Fritz Farnsworth MD PROCEDURE:? CT ANGIO CHEST PE PROTOCOL ? INDICATIONS:? Evolving pleural effusion ? TECHNIQUE:? After the administration of intravenous contrast, 2 mm thick sections acquired from the pulmonary apices to the posterior costophrenic angles.? 3-dimensional maximum intensity projection (MIP) coronal and sagittal reformats were then acquired through the thorax.? For radiation dose reduction, the following was used:? automated exposure control, adjustment of mA and/or kV according to patient size.? ? COMPARISON:? Located Within [facility], CT, CT CHEST W CON, 01/15/2021, 11:29.? Located Within [facility], CT, CT CHEST ABD PEL W CON, 02/26/2021, 22:50.? Located Within [facility], CR, XR CHEST 1V, 03/09/2021, 16:40. ? FINDINGS:? Image quality:? Images are mildly degraded by respiratory motion.? Diagnostic information is obtained..? ? Pulmonary arteries:? The main pulmonary artery measures up to 3.2 cm in diameter, which can be seen in the setting of pulmonary hypertension.? Pulmonary arteries are normal in size, and demonstrate no intraluminal filling defects to suggest central pulmonary embolism.? ? Lungs and pleura:? Tracheostomy tube again seen in stable position.? Bilateral pleural effusions are seen.? A moderate to large simple right pleural effusion appears to have increased in size when compared to the prior CT from 02/26/2021.? A loculated left pleural effusion does not appear significantly changed in size compared to the recent prior exam, but has increased when compared to the CT from 01/15/2021.? There is atelectasis of the adjacent lungs.? A 1.3 cm nodule at the left lung base (180/5) does not appear significantly changed in size.? An adjacent masslike opacity is seen adjacent to the pleura that may represent round atelectasis or a pulmonary mass.? Ground-glass opacities and interlobular septal thickening is seen in the right upper lobe that is nonspecific and may be related to atelectasis or edema, although neoplasm is not excluded. ? Mediastinum:? Heart size is normal, without pericardial effusion.? No mediastinal or hilar adenopathy.? Thoracic aorta is normal in caliber and enhancement.? Esophagus is normal in caliber, without hiatal hernia.? ? Bones and chest wall:? No suspicious bony lesions.? Mild degenerative changes are seen in the spine.? Thyroid is not well visualized.? No axillary or supraclavicular adenopathy.? There is diffuse soft tissue anasarca. ? Abdomen:? Visualized upper abdominal solid organs appear normal in the early arterial phase of enhancement.? ? IMPRESSION:? 1. No acute pulmonary embolus. 2. Moderate to large simple right pleural effusion has increased in size when compared to the CT from 02/26/2021.? Stable moderate loculated left pleural effusion. 3. Ground-glass opacities and interlobular septal thickening in the right upper lobe and lingula are most likely secondary to edema/volume overload. 4. Left lower lobe masslike opacity adjacent to the pleura may represent rounded atelectasis, neoplasm, or infection.? An additional adjacent 1.3 cm round pulmonary nodule appears stable. 5. The main pulmonary artery measures up to 3.2 cm in diameter, which can be seen in the setting of pulmonary hypertension. ? Dictated by: Gagan Sanchez M.D. on 03/09/2021 at 18:13 ? ? Approved by: Gagan Sanchez M.D. on 03/09/2021 at 18:25?? ECG Data Attestation: I personally reviewed and interpreted this ECG as follows: (Normal sinus rhythm rate 97 beats per minute. Nonspecific ST T wave changes. No ectopy. Motion artifact.) Critical Care Time <Fritz Farnsworth MD - Last Filed: 03/09/21 20:23> Critical Care Time Critical Care Time: Yes Total Critical Care Time: 50 Attestation: Time included initial assessment of the patient, extensive review of medical records, and evaluation of lab, radiology and EKG data. Time included conversations with the admitting physician and the incoming ER attending as well as the patient's . Discharge Plan Departure Patient Disposition: Admitted As Inpatient Clinical Impression: Metastasis from thyroid cancer, Need for comfort care Admit Date/Time: 03/09/21 20:00 Admit Provider: Rachel Gupta
[2021-03-09] MEDS: ALBUTEROL/IPRATROPIUM 3 ML AMPUL INH (16:44)
[2021-03-09 16:47] LABS: Add Manual Diff / Slide Review NO; Basophils Absolute Auto 0 /uL (0-100); Basophils Percent Auto 0.3 % (0-2); Eosinophils Absolute Auto 100 /uL (0-450); Eosinophils Percent Auto 1.1 % (2-4); Hematocrit 37.7 % (36-46); Hemoglobin 12.6 g/dL (12.0-16.0); Lymphocytes Absolute Auto 200 /uL (1100-4500); Lymphocytes Percent Auto 1.6 % (25-40); Mean Corpuscular HGB Conc 33.3 % (30-36); Mean Corpuscular Hemoglobin 29.7 PG (26-34); Mean Corpuscular Volume 89.1 fL (80-100); Monocytes Absolute Auto 600 /uL (0-900); Monocytes Percent Auto 5.1 % (3-14); Neutrophils Absolute Auto 10400 /uL (1500-7000); Neutrophils Percent Auto 91.9 % (50-75); Platelet Count 346 X10^3/uL (150-400); Red Blood Cell Count 4.23 X10^6/uL (4.0-5.2); Red Cell Distribution Width 14.4 % (11.6-14.8); White Blood Cell Count 11.4 X10^3/uL (4.5-11.0)
[2021-03-09 16:58] LABS: Lactate (Lactic Acid) 1.8 mmol/L (0.7-2.1)
[2021-03-09 16:59] LABS: Alanine Aminotransferase 17 IU/L (<35); Albumin 3.6 g/dL (3.5-5.0); Albumin Globulin Ratio 1.2 (1.0-2.8); Alkaline Phosphatase 113 U/L (38-126); Aspartate Aminotransferase 30 IU/L (14-36); BUN Creatinine Ratio 26.5 (6-22); Bilirubin Total 0.3 mg/dL (0.2-1.3); Blood Urea Nitrogen 18 mg/dL (7-17); Calcium 7.4 mg/dL (8.4-10.2); Carbon Dioxide 31 mmol/L (22-32); Chloride 84 mmol/L (98-107); Estimated Glomerular Filt Rate > 60.0 mL/min (>60); Globulin 3.1 g/dL (1.7-4.1); Glucose 108 mg/dL (80-110); HEMOLYSIS < 15 (0-50); Potassium 4.8 mmol/L (3.4-5.1); Sodium 122 mmol/L (137-145); Total Protein 6.7 g/dL (6.3-8.2)
[2021-03-09 17:03] LABS: COVID19 -Nasal RAPID Negative (Negative)
[2021-03-09 17:18] LABS: COVID19 - ADMIT (NP swab/PCR) Negative (Negative)
--- NOTE | 2021-03-09 17:29 | DI.CT.S_ITS ---
PROCEDURE: CT ANGIO CHEST PE PROTOCOL INDICATIONS: Evolving pleural effusion TECHNIQUE: After the administration of intravenous contrast, 2 mm thick sections acquired from the pulmonary apices to the posterior costophrenic angles. 3-dimensional maximum intensity projection (MIP) coronal and sagittal reformats were then acquired through the thorax. For radiation dose reduction, the following was used: automated exposure control, adjustment of mA and/or kV according to patient size. COMPARISON: [facility], CT, CT CHEST W CON, 01/15/2021, 11:29. [facility], CT, CT CHEST ABD PEL W CON, 02/26/2021, 22:50. [facility], CR, XR CHEST 1V, 03/09/2021, 16:40. FINDINGS: Image quality: Images are mildly degraded by respiratory motion. Diagnostic information is obtained.. Pulmonary arteries: The main pulmonary artery measures up to 3.2 cm in diameter, which can be seen in the setting of pulmonary hypertension. Pulmonary arteries are normal in size, and demonstrate no intraluminal filling defects to suggest central pulmonary embolism. Lungs and pleura: Tracheostomy tube again seen in stable position. Bilateral pleural effusions are seen. A moderate to large simple right pleural effusion appears to have increased in size when compared to the prior CT from 02/26/2021. A loculated left pleural effusion does not appear significantly changed in size compared to the recent prior exam, but has increased when compared to the CT from 01/15/2021. There is atelectasis of the adjacent lungs. A 1.3 cm nodule at the left lung base (180/5) does not appear significantly changed in size. An adjacent masslike opacity is seen adjacent to the pleura that may represent round atelectasis or a pulmonary mass. Ground-glass opacities and interlobular septal thickening is seen in the right upper lobe that is nonspecific and may be related to atelectasis or edema, although neoplasm is not excluded. Mediastinum: Heart size is normal, without pericardial effusion. No mediastinal or hilar adenopathy. Thoracic aorta is normal in caliber and enhancement. Esophagus is normal in caliber, without hiatal hernia. Bones and chest wall: No suspicious bony lesions. Mild degenerative changes are seen in the spine. Thyroid is not well visualized. No axillary or supraclavicular adenopathy. There is diffuse soft tissue anasarca. Abdomen: Visualized upper abdominal solid organs appear normal in the early arterial phase of enhancement. IMPRESSION: 1. No acute pulmonary embolus. 2. Moderate to large simple right pleural effusion has increased in size when compared to the CT from 02/26/2021. Stable moderate loculated left pleural effusion. 3. Ground-glass opacities and interlobular septal thickening in the right upper lobe and lingula are most likely secondary to edema/volume overload. 4. Left lower lobe masslike opacity adjacent to the pleura may represent rounded atelectasis, neoplasm, or infection. An additional adjacent 1.3 cm round pulmonary nodule appears stable. 5. The main pulmonary artery measures up to 3.2 cm in diameter, which can be seen in the setting of pulmonary hypertension. Dictated by: Gagan Sanchez M.D. on 03/09/2021 at 18:13 Approved by: Gagan Sanchez M.D. on 03/09/2021 at 18:25
--- NOTE | 2021-03-09 17:39 | DIET.PN1 ---
Dietary Progress Note Assessment: RD at hospital helping with dinner service alerted to Ms. Day in ED. If pt needs to be fed during this hospital stay please follow plan from previous admissions using pts home formula per pts preference as follows: Recc continuing pts home Functional Formularies Liquid Hope via g-tube using continuous pump in open system bag. Recc sterile transfer of three 12oz formula tetra-packs into kangaroo open system bag undiluted. Recc feeding at rate of 125mL/h using pump over 8hr from 9am-5pm after which bag and tubing is discarded and replaced the next day. Recc 120mL free water flushes q4h. Recc addition of calcium supplement 380mg/d while hospitalized as pts home formula does not meet TRACTOR TECHNICIAN for pt. Pt using yogurt or kefir at home to fill this gap. Formula plus water flushes provide 1,356mL free water (26mL/kg). Recc medical management of IVF to meet pts additional fluid needs as well as for hyponatremia correction. RD on site Thursday morning for f/u prn. Electronically Signed by: Tish Hernandez 03/09/21 17:39 Clinical Dietitian [address] [id number]
--- NOTE | 2021-03-09 17:57 | PC.NURSE ---
Pt transported to DI with tech and RT.
[2021-03-09] MEDS: MORPHINE 2 MG/ML INJ IV (20:06)
--- NOTE | 2021-03-09 21:33 | P.HP_ITS ---
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 She was to be discharged on home oxygen however that did not arrive after she returned home and the next day was ordered by her PCP. The who is her DPOA and primary caregiver stated that he ended up having to put oxygen on her both by nasal cannula as well as on her tracheostomy site as she was desaturating into the 70s and low 80s. He brought her in today because she was not improving and appeared to be in significant distress. She is unable to speak due to presence of her tracheostomy. CT of the chest done today indicated that the large pleural effusion on the right lung which was previously drained had filled up again. She has masses in the left lung which also obstruct her ability to fully oxygenate and has increased pulmonary hypertension. She is afebrile, blood pressure 160/72, heart rate 106, respirations 31, oxygen saturation of 87% with an FiO2 of 35 her BMI is 17.5. Her white count is elevated today at 11.4, increased since the , she has a left shift with a neutrophil count of 10,400, sodium 122, chloride 84, bicarb 31, BUN 18, GFR is within normal limits, calcium is 7.4, and COVID 19 PCR is negative. Patient's who is her DPOA wishes to have the patient made comfortable until arrangements can be made for hospice admission. He was informed by the emergency room provider that if we place her on comfort measures only she may not survive the evening. He states that he understands and is willing to change her POLST form to comfort measures. 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) History of radiation therapy (~1992) Horners syndrome (~2010) Hypothyroid Kidney disease (~1974) Measles (~1952) Migraines MRSA (methicillin resistant Staphylococcus aureus) (~2015) Mumps (~1956) Peripheral neuropathy (~2010) Pituitary adenoma Rubella (~1959) Seizures (~1958) Thyroid cancer (~1969) Vocal cord paralysis (~2010) Surgical History Anesthesia History of foot surgery (~2013) History of neck surgery (~2009) History of surgery (~2010) History of thyroid surgery (~1982) History of thyroidectomy (~1969) Family & Social History Family History Father Cancer Diabetes mellitus History of heart disease Hyperlipidemia Hypertension Polycythemia vera Mother High cholesterol History of heart disease Sister Age: 75 High cholesterol Sister High cholesterol Mental health problem Sister Asthma Grandmother Parkinson's disease Grandfather Cancer Social History: household members spouse Safety & Behavioral: Feels Safe in Current Yes Environment Been Physically Hurt or No Threatened By a Person Tobacco & Substance use: Smoking Status Never smoker alcohol intake never alcohol intake frequency holiday/special occasion Substance Use Type does not use Meds Home Medications and Allergies Home Medications Medication Instructions Recorded Confirmed Type glycerin (adult) 1 supp OH Q3D PRN 01/05/19 03/04/21 History acetaminophen 500 mg/15 mL oral 1,000 mg PO Q6H PRN ml 02/28/20 03/04/21 History liquid famotidine 20 mg tablet 20 mg FEEDING TUBE DAILY #90 tab 05/02/20 03/04/21 Rx imipramine HCl 50 mg tablet 50 mg FEEDING TUBE BEDTIME #90 tab 05/02/20 03/04/21 Rx meclizine 25 mg tablet 25 mg FEEDING TUBE Q6H PRN #240 tab 05/02/20 03/04/21 Rx nystatin 100,000 unit/gram topical 1 applic TOPICAL DAILY #30 g 05/02/20 03/04/21 Rx cream nystatin 100,000 unit/mL oral 5 ml PO BEDTIME #250 ml 05/02/20 03/04/21 Rx suspension ondansetron 4 mg disintegrating 4 mg FEEDING TUBE TID PRN #270 tab 05/02/20 03/04/21 Rx tablet silver nitrate applicators 75 %-25 1 applic TOP 2XW #100 each 05/02/20 03/04/21 Rx % topical stick sodium chloride 0.9 % (flush) 20 ml IV .COMPLEX PRN #5400 ml 08/02/20 03/04/21 Rx DISABLED PARKING PERMIT #1 ea 09/10/20 03/06/21 Rx venlafaxine 75 mg tablet 75 mg FEEDING TUBE TID #270 tab 10/26/20 02/27/21 Rx cetirizine 1 mg/mL oral solution 5 mg (5 mL) FEEDING TUBE Q12H PRN 12/18/20 03/04/21 Rx (Wal-Zyr (cetirizine)) #960 ml clobetasol 0.05 % topical cream 1 applic TOPICAL DAILY #60 g 12/18/20 03/04/21 Rx cyclobenzaprine 5 mg tablet 5 mg FEEDING TUBE TIDP PRN #270 tab 12/18/20 03/04/21 Rx ferrous sulfate 220 mg (44 mg 330 mg (7.5 mL) FEEDING TUBE TID 12/18/20 03/04/21 Rx iron)/5 mL oral elixir #2025 ml gabapentin 250 mg/5 mL oral 900 mg (18 mL) FEEDING TUBE BID 12/18/20 03/04/21 Rx solution #3240 ml hydrocortisone 2.5 % topical cream 1 applic TOPICAL PRN PRN #90 g 12/18/20 03/04/21 Rx ipratropium bromide 42 mcg (0.06 2 spray INTRANASAL TID #90 ml 12/18/20 03/04/21 Rx %) nasal spray metoprolol tartrate 25 mg tablet 37.5 mg PO BID #270 tab 12/18/20 03/04/21 Rx tobramycin-dexamethasone 0.3 %-0.1 1 applic .ROUTE .COMPLEX #10.5 g 12/18/20 03/04/21 Rx % eye ointment (TobraDex) Sodium Bicarbonate Inj 8.4% #300 ea 02/12/21 03/06/21 Rx clonazepam 0.5 mg disintegrating 0.5 mg FEEDING TUBE TID #270 tab 02/12/21 03/04/21 Rx tablet nebulizers (Innospire Go Nebulizer) #1 ea 02/12/21 03/06/21 Rx diazepam 5 mg/mL oral concentrate 2.5 mg (0.5 mL) PO BID PRN #30 ml 02/19/21 03/04/21 Rx duloxetine 30 mg capsule,delayed 30 mg PO DAILY #15 cap 02/26/21 03/04/21 Rx release sprinkle fentanyl 25 mcg/hr transdermal 1 patch TRANSDERMAL Q72H #10 ea 02/26/21 03/04/21 Rx patch levothyroxine 200 mcg tablet 288 mcg FEEDING TUBE DAILY #90 tab 02/26/21 03/04/21 Rx chlorpheniramine-pseudoephedrine 2 30 ml FEEDING TUBE QPM 02/27/21 03/04/21 History mg-30 mg/5 mL oral liquid polyethylene glycol 3350 17 gram 17 g PO DAILY PRN 02/27/21 03/04/21 History oral powder packet (Miralax) sennosides 8.6 mg tablet (Senna 8.6 mg PO BEDTIME 02/27/21 03/04/21 History Laxative) Allergies Allergy/AdvReac Type Severity Reaction Status Date / Time amoxicillin [From Augmentin] Allergy Intermediate Severe Verified 02/26/21 11:18 Diarrhea cat dander Allergy Intermediate Verified 02/26/21 11:18 clavulanic acid Allergy Intermediate Severe Verified 02/26/21 11:18 [From Augmentin] Diarrhea Sulfa (Sulfonamide Allergy Unknown Diarrhea Verified 02/27/21 14:46 Antibiotics) Review of Systems Review of Systems ROS: Yes unobtainable due to endotracheal tube Exam Vital Signs (past 8 hours): - 03/09/21 16:15 03/09/21 16:35 03/09/21 16:48 Temperature 98.4 F Pulse Rate 98 H 106 H Respiratory Rate 22 18 24 Blood Pressure 152/71 H Pulse Oximetry 99 93 94 03/09/21 16:49 03/09/21 17:00 03/09/21 17:30 Temperature Pulse Rate 100 H 97 H 97 H Respiratory Rate 24 19 15 Blood Pressure 132/70 154/77 H Pulse Oximetry 94 96 96 03/09/21 18:30 03/09/21 19:00 03/09/21 19:30 Temperature Pulse Rate 109 H 102 H 110 H Respiratory Rate 29 H 23 37 H Blood Pressure Pulse Oximetry 96 03/09/21 19:34 03/09/21 20:00 03/09/21 20:30 Temperature Pulse Rate 109 H 120 H 104 H Respiratory Rate 30 H 35 H 32 H Blood Pressure 189/85 H 198/120 H 153/67 H Pulse Oximetry 94 76 L 03/09/21 21:00 Temperature Pulse Rate 106 H Respiratory Rate 31 H Blood Pressure 160/72 H Pulse Oximetry 87 L Fraction of Inspired Oxygen 35 Oxygen Delivery Method Trach Collar Narrative Exam Narrative: Gen: Alert, likely oriented, cachectic appearing 70 y.o. female, appears very uncomfortable HEENT: normocephalic, atraumatic, conjunctiva clear, sclera non-icteric, oral mucosa pink and moist Neck: supple, full ROM, no JVD, trachea is midline Resp: Right upper lung petit very rhonchorous, left lung sounds difficult to appreciate, patient is tachypneic with labored breathing CV: Tachycardic, no murmur or rubs Abd: soft, non-tender, normoactive BTs Skin: no lesions or rashes, dry and intact Neuro: Alert and oriented X 4 with continued right-sided facial droop present from prior admission. Nonverbal today. Extremities: decorticate posturing, spastic movement of feet and ankles Psyche: Unable to assess Objective Labs Result Diagrams: 03/09/21 16:40 03/09/21 16:40 Labs: Laboratory Results - last 24 hr 03/09/21 03/09/21 03/09/21 16:15 16:15 16:40 WBC 11.4 H RBC 4.23 Hgb 12.6 Hct 37.7 MCV 89.1 MCH 29.7 MCHC 33.3 RDW 14.4 Plt Count 346 Neut % (Auto) 91.9 H Lymph % (Auto) 1.6 L Wallace % (Auto) 5.1 Eos % (Auto) 1.1 L Baso % (Auto) 0.3 Neut # (Auto) 85330 H Lymph # (Auto) 200 L Wallace # (Auto) 600 Eos # (Auto) 100 Baso # (Auto) 0 Sodium Potassium Chloride Carbon Dioxide BUN Creatinine Estimated GFR BUN/Creatinine Ratio Glucose Lactate Calcium Total Bilirubin AST ALT Alkaline Phosphatase Total Protein Albumin Globulin Albumin/Globulin Ratio SARS-CoV-2 (PCR) Negative Negative 03/09/21 03/09/21 16:40 16:40 WBC RBC Hgb Hct MCV MCH MCHC RDW Plt Count Neut % (Auto) Lymph % (Auto) Wallace % (Auto) Eos % (Auto) Baso % (Auto) Neut # (Auto) Lymph # (Auto) Wallace # (Auto) Eos # (Auto) Baso # (Auto) Sodium 122 L D Potassium 4.8 Chloride 84 L Carbon Dioxide 31 BUN 18 H Creatinine 0.68 Estimated GFR > 60.0 BUN/Creatinine Ratio 26.5 H Glucose 108 Lactate 1.8 Calcium 7.4 L Total Bilirubin 0.3 AST 30 ALT 17 Alkaline Phosphatase 113 Total Protein 6.7 Albumin 3.6 Globulin 3.1 Albumin/Globulin Ratio 1.2 SARS-CoV-2 (PCR) Assessment & Plan Assessment & Plan narrative: Aimee Day will be admitted for comfort care and hospice consultation which will likely not occur until Thursday, 2 days from now. Worsening right-sided pleural effusion, acute, present on admission * She has late stage metastatic thyroid cancer with metastasis to the lung and bone, * She is placed on comfort measures only after discussions between the and the emergency department provider and have confirmed that this is his desire. Per the patient's , she had been on hospice in 2014 and ?failed? hospice. * She is ordered for a morphine drip for the patient and and he is advised that the patient will not likely survive the night. He understands the implications of this decision. Advanced care planning * Telemetry, oxygen saturation, and labs will not be ordered for her admission * She has only ordered for medications that control symptoms that can be administered through her G-tube or IV * End of life comfort measures order set ordered VTE Prophylaxis: Wells risk score 2.5 Patient is admitted to the inpatient service due to the severity of disease, risks of further disease progression and this stay is expected to exceed 2 midnights. FEN: IV fluids: morphine drip w/D5, diet: NPO, [facility] consult placed, care and involvement in the patient?s care is appreciated. Dispo: If she does not her, likely d/c home on hospice Code status: DNR/DNI per Wolf Thomas, her who is her surrogate and POA. [X] I have utilized all available immediate resources to obtain, update, or review of the patient's current medications COVID-19 COVID-19 status: Negative Result date/Date tested (Pos, Neg/Pending): 03/09/21 Time Spent With Patient Critical Care time: I spent a total of [] minutes of critical care time on this patient's care today; this time is exclusive of procedural time. Scores GCS [place] coma scale eye opening: Spontaneous Chet coma scale verbal response: None [place] coma scale motor response: Localising [place] coma scale total score: 10 Wells' Criteria for PE Clinical signs and symptoms of DVT: No PE is #1 Dx or equally likely: No Heart rate > 100: Yes Immobilization at least 3 days or surg in previous 4 weeks: No History of PE or DVT: No Hemoptysis: No Malignancy w/Treatment within 6 months or palliative: Yes Wells' PE Score total: 2.5 Quality MIPS - Admit I confirm the patient?s Advance Care Plan is present, Code status is documented, Surrogate decision maker is in patient?s record [If Yes, STOP here]: Yes MIPS - DC The patient has current or prior documentation of left ventricular ejection fraction (LVEF) less than 40%, or moderate or severely depressed left ventricular systolic function.: No
[2021-03-09] MEDS: LORazepam 2 MG/ML INJ 1 MG IV ×2 (21:52→23:03)
[2021-03-09] MEDS: MORPHINE 50 MG in DEXTROSE 5 % IN WATER 45 ML IV (21:53)
--- NOTE | 2021-03-09 22:25 | PC.NURSE ---
Pt transferred to different bed for comfort. Removed from pulse ox and BP per family request, as mentioned during goals discussion with provider. Family member at bedside and agreeable with plan of care, pt also nods in agreement.
[2021-03-09] MEDS: SCOPOLAMINE 1 PATCH TOP (22:45)
[2021-03-10] VITALS (24 sets, daily range): BP systolic 67; BP diastolic 36; PULSE 84–126; RESP 4–66; BMI 18.8
[2021-03-10] MEDS: LORazepam 2 MG/ML INJ 1 MG IV ×3 (01:18→11:23)
--- NOTE | 2021-03-10 04:54 | PC.NURSE ---
Called into pt's room, spouse stating pt having difficulty breathing. Medicated with ativan and pt's spouse suctioned airway. pt calmed shortly after and stated her breathing was easier.
[2021-03-10] MEDS: SCOPOLAMINE 1 PATCH TOP (07:30)
[2021-03-10] MEDS: diazePAM 10 MG/2 ML SYRINGE IV (09:13)
[2021-03-10] MEDS: MORPHINE 50 MG in DEXTROSE 5 % IN WATER 45 ML 8 ML IV ×2 (10:21→15:29)
[2021-03-10] MEDS: fentaNYL 25 MCG/PATCH TOP (12:37)
--- NOTE | 2021-03-10 13:17 | CM.DANOTE ---
DCP: Case received, EMR reviewed. Patient is known to this showcase trimmer, as she was recently here and discharged home. Briefly introduced self to spouse earlier today, he is currently sleeping in patient's room. Completed DCP assessment based upon information currently available. Patient is a 70 year old female who admitted yesterday evening to the care of the hospitalist. PCP: Dr. Wilkins. Payer: confirmed: Medicare/. Patient came to the hospital via ambulance secondary to increased dyspnea and oxygen sats. Patient had been here recently, and was discharged on home oxygen. Patient was noted to have increased oxygen demands, her sats were going down into the 70s, even with the oxygen. Patient holds current diagnosis of large pleural effusion. Patient has a trach, and also has late stage metastatic thyroid CA. Patient was placed on comfort care after a discussion with patient's spouse, and POLST was updated. She has been getting Morphine for comfort, and is currently sleeping. She is being suctioned for comfort. Hospice was discussed with hospitalist, and for this to be arranged prior to going home. [facility] She is familiar with patient, but has not been on service since 2014. Updated her on patient. She is they may not be able to see patient until mid week. Went ahead and faxed her over the referral, requesting that if they can potentially see patient sooner, would be appreciated. Patient's , Wolf, is the primary caregiver. He also mentioned at last admission that an RN comes in approximately 3 times a week for trach management through [facility]. She now has home oxygen, which was set up at last visit. She uses a wheel-chair, has not been ambulating. She also has a hospital bed, and a stair elevator, as well as a wheel chair van set up. P: DCP to continue to follow. Goal is home on Hospice, but unsure if they can open her in the next couple of days, or if patient will here. Will continue to follow up with hospice for a home plan. Kim Moreno, RN/Relationship Counselor Discharge Planning/Care Management CM Discharge Assessment Start: 03/10/21 13:14 Freq: Status: Active Protocol: Document 03/10/21 13:14 (Rec: 03/10/21 13:17 [id number]) Discharge Planning Assessment Assigned Extension Professor Kim Moreno RN/Relationship Counselor Advance Directives? Yes: POLST Advance Directives on File Yes History Provided By Family Member,Medical Record Prior Living Arrangements House Household Members spouse Type of transporation used prior to Relies on Others admit Independent with ADL's No Is patient alert and oriented? No Needs Assistance With Bathing,Eating,Grooming,Meal Prep,Toileting,Managing Medications,Home Chores / Shopping Caregiver for Another No DME Already Rented / Owned Bath Bench,Hospital Bed, Wheelchair Comment State CM is Ok [place] # [phone] Comment is very supportive. Discharge Plan Hospice Transportation Arrangement Will need BLS transport Referrals Initiated None needed,Other Additional Comment Hospice referral inititiated Review Status In Process Next Review Type Continued Stay Review
--- NOTE | 2021-03-10 13:39 | PC.NURSE ---
Received report from Christin ELIAS. Wolf at bedside and sister also at bedside. Resp are irregular and 4 per min. Encouraged family to call for any needs or questions. Pt appears comfortable. No restlessness observed.
--- NOTE | 2021-03-10 15:34 | PC.NURSE ---
Checked brief; it was dry. Per , last urine output was in ER this morning. Brief changed and pt tolerated. Continues to appear comfortable; agonal breathing is irregular and 3 per min at this time. Wolf remains with patient at this time.
--- NOTE | 2021-03-10 16:03 | PC.NURSE ---
Fingertips cyanotic and cold so not able to get an accurate O2sat. Informed Dr meza hasn't had any urine output since this morning in ER. He is in agreement to hold hoff placement for now.
--- NOTE | 2021-03-10 19:24 | PC.NURSE ---
Called to room by . He stated pt hasn't taken a breath in a couple minutes. Sarabjti nurse coordinator and hospitalist notified. Auscultated chest, no respiration and no heart tones upon auscultation. Time of : 1853. consoled at bedside. Sarabjit ELIAS to notify family and [facility]. Report passed on to Jose L ELIAS.
--- NOTE | 2021-03-10 19:47 | PM.DS.1 ---
History of Present Illness History of Present Illness Date Patient Seen: 03/10/21 Chief complaint: Discharged 03/07 worsening dyspnea Discharge Providers Provider Date of admission: 03/09/21 20:00 Discharge Date: 03/10/21 Primary care physician: Armani Wilkins MD Consults: 03/09/21 20:13 Consult to Discharge Planning Routine Comment: Consult to Hospice Referral Urgent Comment: Discharge provider: Lissette Lui DO Summary Hospital Course Discharge Diagnosis: PATIENT ADMITTED TO [facility] ON CONFORTS MEASURES PER POA REQUEST. PATIENT WAS STARTED ON MORPHINE AND ATIVAN. 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) History of radiation therapy (~1992) Horners syndrome (~2010) Hypothyroid Kidney disease (~1974) Measles (~1952) Migraines MRSA (methicillin resistant Staphylococcus aureus) (~2015) Mumps (~1956) Peripheral neuropathy (~2010) Pituitary adenoma Rubella (~1959) Seizures (~1958) Thyroid cancer (~1969) Vocal cord paralysis (~2010) Surgical History Anesthesia History of foot surgery (~2013) History of neck surgery (~2009) History of surgery (~2010) History of thyroid surgery (~1982) History of thyroidectomy (~1969) Family History Father Cancer Diabetes mellitus History of heart disease Hyperlipidemia Hypertension Polycythemia vera Mother High cholesterol History of heart disease Sister Age: 75 High cholesterol Sister High cholesterol Mental health problem Sister Asthma Grandmother Parkinson's disease Grandfather Cancer Social History household members: spouse Smoking Status: Never smoker alcohol intake: never Discharge Plan Discharge Plan Patient Disposition: Discharge orders & Medications Prescriptions: No Action famotidine 20 mg tablet 20 mg feeding tube DAILY Qty: 90 3RF imipramine HCl 50 mg tablet 50 mg feeding tube BEDTIME Qty: 90 3RF meclizine 25 mg tablet 25 mg Feeding Tube Q6H PRN (Reason: Dizziness) Qty: 240 3RF nystatin 100,000 unit/gram cream 1 applic topical DAILY Qty: 30 11RF nystatin 100,000 unit/mL suspension 5 ml PO BEDTIME Qty: 250 11RF Rx Instructions: swish/spit ondansetron 4 mg tablet,disintegrating 4 mg Feeding Tube TID PRN (Reason: Nausea) Qty: 270 3RF silver nitrate applicators 75-25 % stick 1 applic TOP 2XW Qty: 100 11RF sodium chloride 0.9 % (flush) Syringe 20 ml IV .COMPLEX PRN (Reason: IV line flush) Qty: 5400 3RF Rx Instructions: Use 20 mL to irrigate suction T track tube, 2-3 times daily as needed (DME) DISABLED PARKING PERMIT See Rx Instructions .ROUTE .MEDSUPPLY Qty: 1 0RF Rx Instructions: I FIND THIS PATIENT TO BE MEDICALLY DISABLED AND QUALIFIED FOR DISABLE PARKING INDICATED, AND SIGNED ON THE ACCOMPANYING [employer] APPLICATION FOR INDIVIDUALS venlafaxine 75 mg tablet 75 mg feeding tube TID Qty: 270 3RF Hold Instructions: Transition to Cymbalta Rx Instructions: Take one tablet by feeding tube three times a day. cetirizine [Wal-Zyr (cetirizine)] 1 mg/mL solution 5 mg feeding tube Q12H PRN (Reason: Secretions) Qty: 960 3RF clobetasol 0.05 % cream 1 applic topical DAILY Qty: 60 3RF cyclobenzaprine 5 mg tablet 5 mg feeding tube TIDP PRN (Reason: muscle spasm) Qty: 270 3RF ferrous sulfate 220 mg (44 mg iron)/5 mL elixir 330 mg feeding tube TID Qty: 2025 3RF Rx Instructions: AM, 1600, 2000 gabapentin 250 mg/5 mL solution 900 mg Feeding Tube BID Qty: 3240 11RF hydrocortisone 2.5 % cream 1 applic TOPICAL PRN PRN (Reason: Rash) Qty: 90 3RF ipratropium bromide 42 mcg (0.06 %) spray,non-aerosol 2 spray INTRANASAL TID Qty: 90 3RF Rx Instructions: 0900, 1600, 2000 metoprolol tartrate 25 mg tablet 37.5 mg PO BID Qty: 270 3RF Rx Instructions: Administer 37.5mg via G-tube, twice daily TobraDex 0.3-0.1 % ointment 1 applic .ROUTE .COMPLEX Qty: 10.5 3RF Rx Instructions: 1 applic daily to PEG stoma; clonazepam 0.5 mg tablet,disintegrating 0.5 mg Feeding Tube TID Qty: 270 0RF Rx Instructions: am, 1600, 2000 (DME) Sodium Bicarbonate Inj 8.4% See Rx Instructions .Route .MEDSUPPLY Qty: 300 4RF Rx Instructions: MIX 1.5ML WITH 1.5ML SODIUM HCL 0.9% INJECT AND PLACE IN T-TUBE TRACH FOR 15 MINUTES TO CLEAN TRACH 1-2 TIMES DAILY (DME) Innospire Go Nebulizer Mis See Rx Instructions .Route Qty: 1 0RF Rx Instructions: As directed diazepam 5 mg/mL concentrate 2.5 mg PO BID PRN (Reason: anxiety, muscle spasm) Qty: 30 4RF Rx Instructions: Exempt levothyroxine 200 mcg tablet 288 mcg Feeding Tube DAILY Qty: 90 3RF fentanyl 25 mcg/hr patch 72 hour 1 patch transdermal Q72H Qty: 10 0RF duloxetine 30 mg capsule, delayed rel sprinkle 30 mg PO DAILY Qty: 15 0RF glycerin (adult) Suppository 1 supp TN Q3D PRN (Reason: Constipation) 0RF sennosides [Senna Laxative] 8.6 mg Tablet 8.6 mg PO BEDTIME 0RF polyethylene glycol 3350 [Miralax] 17 gram Powder In Packet 17 g PO DAILY PRN (Reason: Constipation) 0RF chlorpheniramine-pseudoephed 2-30 mg/5 mL Liquid 30 ml feeding tube QPM 0RF Label Comments: not taking Liquid Hope Original Formula Liquid 0RF Rx Instructions: 341 ml (12 oz) tube feeding Follow up/Referrals: Armani Wilkins MD [Primary Care Provider] - Discharge Data Primary Care Provider: Claudette,Armani Quality VTE Deep Vein Thrombosis/Pulmonary Embolism Present on Admission: No
--- NOTE | 2021-03-11 07:54 | CM.DPNOTE ---
DCP Per RN, spouse was bedside with pt who was changed to Comfort Care with plan of attempting to return home with [facility] in the next couple days but pt last night around 185 with spouse present and [facility] was notified. SW called [facility] that pt in the hospital. JANIYA Giang
== END 2021-03-10 21:35 | disposition expired | DRG 180 ==
LOC: ED 19:56 → AC 20:06
PROVIDERS: Admitting Provider Nurse Practitioner Family; Emergency Provider Emergency Medicine; Family Provider Student in an Organized Health Care Education/Training Program; PCP Student in an Organized Health Care Education/Training Program; Referring Provider Emergency Medicine; Visit Provider Nurse Practitioner Family
DX: C78.02 Secondary malignant neoplasm of left lung (principal); J96.20 Acute and chronic respiratory failure, unspecified whether with hypoxia or hypercapnia; J91.0 Malignant pleural effusion; C79.51 Secondary malignant neoplasm of bone; E22.2 Syndrome of inappropriate secretion of antidiuretic hormone; J38.02 Paralysis of vocal cords and larynx, bilateral; Z66 Do not resuscitate; Z51.5 Encounter for palliative care; Z20.822 Contact with and (suspected) exposure to COVID-19; Z93.0 Tracheostomy status; Z93.1 Gastrostomy status
CPT/HCPCS: 36415; 71045; 71275; 80053; 83605; 85025; 87070; 87147; 87205; 87635; 93005; 94640; 96365; 96366; 96375; 99285; 99291; C9803; J2060; J2270; J3360; Q9967